=== PATIENT | male | born 1960 | race African-American/Black ===

== ENCOUNTER 2018-06-21 14:58 | Inpatient (IN) ==
[2018-06-21] MEDS ORDERED: SODIUM CHLORIDE 0.9% 1,000 ML IV STA (15:35)
[2018-06-21] MEDS ORDERED: DEXTROSE 50% 25 GM/50 ML SYRINGE IV ONE (16:01)
[2018-06-21] MEDS ORDERED: DEXTROSE 50% 25 GM/50 ML VIAL IV STA (16:07)
[2018-06-21 16:14] LABS: Basophils % 0.3 % (0.0-0.8); Eosinophils # 0.1 10*3/uL (0.0-0.87); Eosinophils % 2.3 % (0.00-10.9); Hematocrit 45.3 VOL% (42.0-52.0); Hemoglobin 15.2 GM/DL (14.0-18.0); Immature Granulocytes % 0.3 %; Immature Granulocytes Absolute 0.01 #; Lymphocytes % 24.2 % (21.2-54.2); Mean Corpuscular HGB Conc 33.6 GM/DL (32-36); Mean Corpuscular Hemoglobin 29 PG (27-34); Mean Corpuscular Volume 86.6 FL (87-102); Mean Platelet Volume 11.6 FL (9.6-12.0); Monocytes # 0.3 10*3/uL (0.11-0.8); Monocytes % 6.3 % (1.7-12.7); Neutrophils # 2.6 10*3/uL (1.4-7.4); Neutrophils % 66.6 % (38.7-73.9); Platelet Count 146 T/CUMM (130-400); Red Blood Count 5.23 MC/CUMM (3.8-5.5); Red Cell Distribution Width 14.7 % (9.3-17.3)
[2018-06-21 16:17] LABS: Pt O2 Delivery Device Room Air
[2018-06-21 16:18] LABS: ABG Base Excess 4.4 MMOL/L (-2.5-2.5); ABG HCO3 28.3 MMOL/L (20-26); ABG Oxygen Saturation 96.6 % (95-100); ABG PCO2 58.7 MM HG (35-48); ABG PH 7.344 (7.35-7.45); ABG PO2 93.8 MM HG (80-95); ABG TCO2 28.2 MMOL/L (23-27)
[2018-06-21 16:25] LABS: Apearance,Urine Slightly Hazy (Clear); Bacteria,Urine Many /HPF (Few); Barbiturates Screen,Urine Negative (Negative); Benzodiazepines Screen,Urine Negative (Negative); Bilirubin,Urine Negative (Negative); Blood, Urine Negative (Negative); Cannabinoid Screen,Urine Negative (Negative); Glucose,Urine (UA) Negative (Negative); Ketones,Urine Negative (Negative); Mucus,Urine Few /LPF (Occasional); Nitrite,Urine Negative (Negative); Opiate Screen,Urine Negative (Negative); Phencyclidine Screen,Urine Negative (Negative); Protein,Urine Negative; RBC,Urine 9 /HPF (0-4); Urine Color Yellow (Yellow); Urine Specific Gravity 1.014 (1.001-1.035); WBC,Urine 57 /HPF (0-6)
[2018-06-21] MEDS ORDERED: MEROPENEM 1,000 MG in SODIUM CHLORIDE 0.9% 100 ML IV STA (16:32)
[2018-06-21 16:43] LABS: Ammonia 16 UMOL/L (11-32)
[2018-06-21 16:46] LABS: Lactic Acid 1.1 MMOL/L (0.4-2.0)
[2018-06-21 16:54] LABS: Alanine Aminotransferase 42 U/L (16-61); Albumin 3.1 G/DL (3.4-5.0); Alkaline Phosphatase 108 U/L (45-117); Aspartate Amino Transferase 38 U/L (0-37); Blood Urea Nitrogen 25 MG/DL (7-18); CKMB % 6.8 %; Calcium 9.8 MG/DL (8.5-10.1); Glucose 73 MG/DL (74-106); Osmolality,Calculated 285.1 MOS/KG (273-304); Potassium 3.8 MMOL/L (3.5-5.1); Sodium 142 MMOL/L (136-145); Total Protein 7.9 G/DL (6.4-8.3); Troponin I < 0.015 NG/ML (0.00-0.045)
[2018-06-21] MEDS ORDERED: LEVOFLOXACIN INJ 750 MG in PREMIX 1 EACH IV STA (17:31)
[2018-06-21] MEDS ORDERED: VECURONIUM 10 MG VIAL IV ONE (17:36)
[2018-06-21] MEDS ORDERED: ETOMIDATE 20 MG/10 ML VIAL IV ONE (17:36)
[2018-06-21] MEDS ORDERED: NOREPINEPHRINE 4 MG/4 ML VIAL IV ONE (17:38)
[2018-06-21] MEDS ORDERED: ALBUTEROL 2.5 MG/3 ML NEB RESP TX PRN (18:17)
[2018-06-21] MEDS ORDERED: ONDANSETRON 4 MG/2 ML VIAL IV PRN (18:17)
[2018-06-21 18:34] LABS: PT Patient Result 10.1 SECS
[2018-06-21] MEDS ORDERED: GLUCAGON 1 MG VIAL IM PRN (19:23)
[2018-06-21 19:45] LABS: ABG Base Excess 5.5 MMOL/L (-2.5-2.5); ABG HCO3 26.5 MMOL/L (20-26); ABG Oxygen Saturation 99.3 % (95-100); ABG PCO2 28.7 MM HG (35-48); ABG PH 7.584 (7.35-7.45); ABG PO2 432.3 MM HG (80-95); ABG TCO2 27.4 MMOL/L (23-27)
[2018-06-21] MEDS: PANTOPRAZOLE 40 MG VIAL IV SCH (20:18)
[2018-06-21] MEDS ORDERED: SODIUM CHLORIDE 0.9% 1,000 ML IV ONE (22:00)
[2018-06-21] MEDS: NOREPINEPHRINE 8 MG in SODIUM CHLORIDE 0.9% 242 ML IV PRN (23:00)
[2018-06-21] MEDS: SODIUM CHLORIDE 0.9% 1,000 ML IV SCH (23:10)
[2018-06-22] MEDS: DEXTROSE 50% 25 GM/50 ML VIAL IV PRN (00:18)
[2018-06-22] MEDS: INSULIN REGULAR 100 UNIT/ML SUBCUT SCH ×4 (00:20→17:13)
[2018-06-22 03:39] LABS: ABG Base Excess 2.4 MMOL/L (-2.5-2.5); ABG HCO3 26.2 MMOL/L (20-26); ABG Oxygen Saturation 82.8 % (95-100); ABG PCO2 41.2 MM HG (35-48); ABG PH 7.425 (7.35-7.45); ABG PO2 48.1 MM HG (80-95); ABG TCO2 23.5 MMOL/L (23-27)
[2018-06-22 05:31] LABS: Basophils % 0.2 % (0.0-0.8); Eosinophils # 0.1 10*3/uL (0.0-0.87); Eosinophils % 1.1 % (0.00-10.9); Hematocrit 39.8 VOL% (42.0-52.0); Hemoglobin 13.6 GM/DL (14.0-18.0); Immature Granulocytes % 0.4 %; Immature Granulocytes Absolute 0.02 #; Lymphocytes # 0.8 10*3/uL (1.4-4.0); Lymphocytes % 14.9 % (21.2-54.2); Mean Corpuscular HGB Conc 34.2 GM/DL (32-36); Mean Corpuscular Hemoglobin 30 PG (27-34); Mean Corpuscular Volume 86.9 FL (87-102); Mean Platelet Volume 12.2 FL (9.6-12.0); Monocytes # 0.6 10*3/uL (0.11-0.8); Monocytes % 10.7 % (1.7-12.7); Neutrophils # 3.9 10*3/uL (1.4-7.4); Neutrophils % 72.7 % (38.7-73.9); Platelet Count 139 T/CUMM (130-400); Red Blood Count 4.58 MC/CUMM (3.8-5.5); Red Cell Distribution Width 14.9 % (9.3-17.3); White Blood Count 5.4 T/CUMM (4-12)
[2018-06-22 05:42] LABS: Calcium 8.5 MG/DL (8.5-10.1); Osmolality,Calculated 288.8 MOS/KG (273-304); Potassium 4.1 MMOL/L (3.5-5.1)
[2018-06-22] MEDS: SODIUM CHLORIDE 0.9% 1,000 ML IV SCH ×3 (05:51→19:35)
[2018-06-22] MEDS: MEROPENEM 1,000 MG in SYRINGE 1 EACH IV SCH ×2 (06:42→17:46)
[2018-06-22] MEDS: PROPOFOL 1,000 MG/100 ML BOTTLE IV SCH ×3 (07:16→20:05)
[2018-06-22] MEDS: NOREPINEPHRINE 8 MG in SODIUM CHLORIDE 0.9% 242 ML IV PRN (08:30)
[2018-06-22 08:39] LABS: ABG HCO3 26.2 MMOL/L (20-26); ABG Oxygen Saturation 99.7 % (95-100); ABG PH 7.443 (7.35-7.45); ABG TCO2 22.5 MMOL/L (23-27)
[2018-06-22] MEDS: risperiDONE 1 MG TABLET PO SCH (14:05)
[2018-06-22] MEDS: OXcarbazepine 300 MG TABLET PO SCH ×2 (14:05→21:22)
[2018-06-22] MEDS: LEVOFLOXACIN INJ 750 MG in PREMIX 1 EACH IV SCH (17:46)
[2018-06-22] MEDS: PANTOPRAZOLE 40 MG VIAL IV SCH (17:46)
[2018-06-22] MEDS: BENZTROPINE 1 MG TABLET PO SCH (21:22)
[2018-06-23] MEDS: SODIUM CHLORIDE 0.9% 1,000 ML IV SCH ×3 (01:44→09:09)
[2018-06-23] MEDS: INSULIN REGULAR 100 UNIT/ML SUBCUT SCH ×4 (01:46→18:14)
[2018-06-23 04:26] LABS: ABG Base Excess -1.1 MMOL/L (-2.5-2.5); ABG HCO3 22.5 MMOL/L (20-26); ABG Oxygen Saturation 98.8 % (95-100); ABG PCO2 34.1 MM HG (35-48); ABG PH 7.438 (7.35-7.45); ABG PO2 203.7 MM HG (80-95); ABG TCO2 23.6 MMOL/L (23-27); Pt O2 Delivery Device Ventilator
[2018-06-23] MEDS: MEROPENEM 1,000 MG in SYRINGE 1 EACH IV SCH ×2 (05:58→18:11)
[2018-06-23 06:36] LABS: Osmolality,Calculated 288.8 MOS/KG (273-304); Potassium 3.3 MMOL/L (3.5-5.1)
[2018-06-23 06:42] LABS: Prealbumin 12.2 MG/DL (20-40)
[2018-06-23 07:32] LABS: Basophils % 0.2 % (0.0-0.8); Eosinophils # 0.1 10*3/uL (0.0-0.87); Eosinophils % 2.3 % (0.00-10.9); Hematocrit 31.5 VOL% (42.0-52.0); Immature Granulocytes % 0.5 %; Immature Granulocytes Absolute 0.02 #; Lymphocytes # 1.3 10*3/uL (1.4-4.0); Lymphocytes % 29.3 % (21.2-54.2); Mean Corpuscular Hemoglobin 30 PG (27-34); Mean Corpuscular Volume 87.3 FL (87-102); Mean Platelet Volume 11.9 FL (9.6-12.0); Monocytes # 0.7 10*3/uL (0.11-0.8); Monocytes % 15.3 % (1.7-12.7); Neutrophils # 2.2 10*3/uL (1.4-7.4); Neutrophils % 52.4 % (38.7-73.9); Platelet Count 78 T/CUMM (130-400); Red Blood Count 3.61 MC/CUMM (3.8-5.5); Red Cell Distribution Width 15.4 % (9.3-17.3); White Blood Count 4.3 T/CUMM (4-12)
[2018-06-23 07:37] LABS: Hemoglobin 10.7 GM/DL (14.0-18.0)
[2018-06-23 07:57] LABS: Anisocytosis 1+; Band Neutrophils 1 % (0-10); Eosinophils 2 % (0-10); Lymphocytes 39 % (20-55); Macrocytosis Slight; Platelet Estimate Decreased; Segmented Neutrophils 45 % (50-85); Total Cells Counted 100
[2018-06-23] MEDS ORDERED: MAGNESIUM SULF RIDER 4 GM in PREMIX 1 EACH IV PRN (08:49)
[2018-06-23] MEDS ORDERED: POTASSIUM CHLORIDE 20 MEQ TABLET PO PRN (08:49)
[2018-06-23] MEDS: MAGNESIUM SULF RIDER 2 GM in PREMIX 1 EACH IV PRN (09:25)
[2018-06-23] MEDS: BENZTROPINE 1 MG TABLET PO SCH ×2 (09:26→20:55)
[2018-06-23] MEDS: POTASSIUM CHLORIDE 20 MEQ/15 ML UDCUP PO PRN ×3 (09:29→15:26)
[2018-06-23] MEDS: DEXTROSE 50% 25 GM/50 ML VIAL IV PRN (11:44)
[2018-06-23] MEDS: DEXTROSE 5% NACL 0.45% 1,000 ML IV SCH ×2 (14:13→21:49)
[2018-06-23 14:35] LABS: Calcium 7.9 MG/DL (8.5-10.1); Osmolality,Calculated 285.8 MOS/KG (273-304); Potassium 3.8 MMOL/L (3.5-5.1)
[2018-06-23] MEDS: OXcarbazepine 300 MG TABLET PO SCH ×2 (15:25→20:55)
[2018-06-23] MEDS: risperiDONE 1 MG TABLET PO SCH (15:25)
[2018-06-23] MEDS: LEVOFLOXACIN INJ 750 MG in PREMIX 1 EACH IV SCH (18:05)
[2018-06-23] MEDS: PANTOPRAZOLE 40 MG VIAL IV SCH (18:16)
[2018-06-24] MEDS: INSULIN REGULAR 100 UNIT/ML SUBCUT SCH ×4 (00:29→18:24)
[2018-06-24 04:19] LABS: ABG Base Excess -2.3 MMOL/L (-2.5-2.5); ABG HCO3 22.5 MMOL/L (20-26); ABG Oxygen Saturation 99.3 % (95-100); ABG PCO2 36.3 MM HG (35-48); ABG PH 7.392 (7.35-7.45); ABG TCO2 19.6 MMOL/L (23-27); Allen Test Positive; Pt O2 Delivery Device Ventilator
[2018-06-24] MEDS: MEROPENEM 1,000 MG in SYRINGE 1 EACH IV SCH ×2 (04:22→17:09)
[2018-06-24] MEDS: DEXTROSE 5% NACL 0.45% 1,000 ML IV SCH ×4 (04:30→22:20)
[2018-06-24] MEDS: PROPOFOL 1,000 MG/100 ML BOTTLE IV SCH ×3 (04:31→19:30)
[2018-06-24 04:32] LABS: Basophils % 0.2 % (0.0-0.8); Eosinophils # 0.1 10*3/uL (0.0-0.87); Eosinophils % 1.5 % (0.00-10.9); Hematocrit 31.8 VOL% (42.0-52.0); Hemoglobin 11.2 GM/DL (14.0-18.0); Immature Granulocytes % 0.4 %; Immature Granulocytes Absolute 0.02 #; Lymphocytes # 0.9 10*3/uL (1.4-4.0); Mean Corpuscular HGB Conc 35.2 GM/DL (32-36); Mean Corpuscular Hemoglobin 30 PG (27-34); Mean Corpuscular Volume 85.5 FL (87-102); Mean Platelet Volume 12.1 FL (9.6-12.0); Monocytes # 0.6 10*3/uL (0.11-0.8); Monocytes % 11.3 % (1.7-12.7); Neutrophils # 3.8 10*3/uL (1.4-7.4); Neutrophils % 70.6 % (38.7-73.9); Platelet Count 78 T/CUMM (130-400); Red Blood Count 3.72 MC/CUMM (3.8-5.5); Red Cell Distribution Width 15.3 % (9.3-17.3); White Blood Count 5.3 T/CUMM (4-12)
[2018-06-24 04:56] LABS: Calcium 8.2 MG/DL (8.5-10.1); Osmolality,Calculated 277.5 MOS/KG (273-304); Potassium 4.2 MMOL/L (3.5-5.1)
[2018-06-24] MEDS: BENZTROPINE 1 MG TABLET PO SCH ×2 (09:53→20:22)
[2018-06-24] MEDS: OXcarbazepine 300 MG TABLET PO SCH ×2 (15:06→20:23)
[2018-06-24] MEDS: risperiDONE 1 MG TABLET PO SCH (15:06)
[2018-06-24] MEDS: LEVOFLOXACIN INJ 750 MG in PREMIX 1 EACH IV SCH (17:08)
[2018-06-24] MEDS: PANTOPRAZOLE 40 MG VIAL IV SCH (19:10)
[2018-06-25] MEDS: INSULIN REGULAR 100 UNIT/ML SUBCUT SCH ×5 (00:23→23:56)
[2018-06-25] MEDS: DEXTROSE 5% NACL 0.45% 1,000 ML IV SCH ×6 (02:11→22:59)
[2018-06-25 05:35] LABS: Basophils % 0.2 % (0.0-0.8); Eosinophils # 0.1 10*3/uL (0.0-0.87); Eosinophils % 2.3 % (0.00-10.9); Hematocrit 29.8 VOL% (42.0-52.0); Hemoglobin 10.3 GM/DL (14.0-18.0); Immature Granulocytes % 0.5 %; Immature Granulocytes Absolute 0.03 #; Lymphocytes # 0.8 10*3/uL (1.4-4.0); Mean Corpuscular HGB Conc 34.6 GM/DL (32-36); Mean Corpuscular Hemoglobin 30 PG (27-34); Mean Corpuscular Volume 86.6 FL (87-102); Mean Platelet Volume 12.5 FL (9.6-12.0); Monocytes # 0.5 10*3/uL (0.11-0.8); Monocytes % 9.1 % (1.7-12.7); NRBC # 0.02 10*3/uL; Neutrophils # 4.2 10*3/uL (1.4-7.4); Neutrophils % 73.9 % (38.7-73.9); Platelet Count 68 T/CUMM (130-400); Red Blood Count 3.44 MC/CUMM (3.8-5.5); Red Cell Distribution Width 15.3 % (9.3-17.3); White Blood Count 5.7 T/CUMM (4-12)
[2018-06-25] MEDS: MEROPENEM 1,000 MG in SYRINGE 1 EACH IV SCH ×2 (05:37→18:26)
[2018-06-25 05:50] LABS: Calcium 7.9 MG/DL (8.5-10.1); Osmolality,Calculated 274.1 MOS/KG (273-304); Potassium 3.9 MMOL/L (3.5-5.1)
[2018-06-25 06:16] LABS: Band Neutrophils 1 % (0-10); Eosinophils 2 % (0-10); Hypochromasia 1+; Lymphocytes 17 % (20-55); Platelet Estimate Decreased; Segmented Neutrophils 75 % (50-85); Total Cells Counted 100
[2018-06-25] MEDS: BENZTROPINE 1 MG TABLET PO SCH ×2 (09:31→21:54)
[2018-06-25] MEDS: risperiDONE 1 MG TABLET PO SCH (14:31)
[2018-06-25] MEDS: OXcarbazepine 300 MG TABLET PO SCH ×2 (14:32→21:54)
[2018-06-25] MEDS: PANTOPRAZOLE 40 MG VIAL IV SCH (18:23)
[2018-06-25] MEDS: PROPOFOL 1,000 MG/100 ML BOTTLE IV SCH (19:51)
[2018-06-26] MEDS: DEXTROSE 5% NACL 0.45% 1,000 ML IV SCH ×5 (01:17→21:11)
[2018-06-26] MEDS: INSULIN REGULAR 100 UNIT/ML SUBCUT SCH ×4 (06:12→23:41)
[2018-06-26] MEDS: MEROPENEM 1,000 MG in SYRINGE 1 EACH IV SCH (06:16)
[2018-06-26 08:16] LABS: Calcium 7.5 MG/DL (8.5-10.1); Osmolality,Calculated 270.1 MOS/KG (273-304); Potassium 3.9 MMOL/L (3.5-5.1)
[2018-06-26] MEDS: BENZTROPINE 1 MG TABLET PO SCH ×2 (09:26→20:40)
[2018-06-26] MEDS: LACTULOSE 20 GM/30 ML UDCUP PO SCH ×3 (09:26→20:40)
[2018-06-26] MEDS: risperiDONE 1 MG TABLET PO SCH (13:34)
[2018-06-26] MEDS: OXcarbazepine 300 MG TABLET PO SCH ×2 (13:34→20:40)
[2018-06-26] MEDS: MEROPENEM 1,000 MG in SODIUM CHLORIDE 0.9% 100 ML IV SCH ×2 (13:49→22:31)
[2018-06-26] MEDS: DEXTROSE 50% 25 GM/50 ML VIAL IV PRN ×2 (17:27→19:10)
[2018-06-26] MEDS: PANTOPRAZOLE 40 MG VIAL IV SCH (19:46)
[2018-06-26] MEDS ORDERED: SODIUM CHLORIDE 0.9% 1,000 ML IV ONE ×2 (19:52→21:14)
[2018-06-26 20:47] LABS: ABG HCO3 23.6 MMOL/L (20-26); ABG Oxygen Saturation 98.7 % (95-100); ABG PCO2 44.9 MM HG (35-48); ABG PH 7.351 (7.35-7.45); ABG TCO2 22.2 MMOL/L (23-27)
[2018-06-26] MEDS ORDERED: NOREPINEPHRINE 8 MG in SODIUM CHLORIDE 0.9% 242 ML IV PRN (21:54)
[2018-06-26 21:58] LABS: Ammonia 28 UMOL/L (11-32)
[2018-06-26 22:01] LABS: Alanine Aminotransferase 33 U/L (16-61); Albumin 1.8 G/DL (3.4-5.0); Alkaline Phosphatase 77 U/L (45-117); Aspartate Amino Transferase 47 U/L (0-37); Bilirubin,Total < 0.39 MG/DL (0.2-1.0); Blood Urea Nitrogen 10 MG/DL (7-18); Glucose 69 MG/DL (74-106); Potassium 3.9 MMOL/L (3.5-5.1); Sodium 136 MMOL/L (136-145)
[2018-06-26] MEDS ORDERED: NOREPINEPHRINE 4 MG/4 ML VIAL IV ONE (22:03)
[2018-06-27] MEDS: GENTAMICIN INJ 320 MG in SODIUM CHLORIDE 0.9% 100 ML IV SCH (01:14)
[2018-06-27] MEDS: DEXTROSE 5% NACL 0.45% 1,000 ML IV SCH ×5 (02:23→23:41)
[2018-06-27] MEDS: LACTULOSE 20 GM/30 ML UDCUP PO SCH ×4 (03:10→20:52)
[2018-06-27 05:23] LABS: Basophils % 0.3 % (0.0-0.8); Eosinophils # 0.2 10*3/uL (0.0-0.87); Eosinophils % 2.1 % (0.00-10.9); Hematocrit 30.4 VOL% (42.0-52.0); Hemoglobin 10.7 GM/DL (14.0-18.0); Immature Granulocytes % 0.5 %; Immature Granulocytes Absolute 0.04 #; Lymphocytes # 0.6 10*3/uL (1.4-4.0); Lymphocytes % 7.5 % (21.2-54.2); Mean Corpuscular HGB Conc 35.2 GM/DL (32-36); Mean Corpuscular Hemoglobin 30 PG (27-34); Mean Corpuscular Volume 85.9 FL (87-102); Mean Platelet Volume 11.9 FL (9.6-12.0); Monocytes # 0.7 10*3/uL (0.11-0.8); Monocytes % 8.6 % (1.7-12.7); Neutrophils # 6.1 10*3/uL (1.4-7.4); Red Blood Count 3.54 MC/CUMM (3.8-5.5); Red Cell Distribution Width 14.9 % (9.3-17.3)
[2018-06-27 05:34] LABS: White Blood Count 7.6 T/CUMM (4-12)
[2018-06-27 05:35] LABS: Platelet Count 90 T/CUMM (130-400)
[2018-06-27 05:37] LABS: Calcium 7.6 MG/DL (8.5-10.1); Osmolality,Calculated 271.8 MOS/KG (273-304); Potassium 4.2 MMOL/L (3.5-5.1)
[2018-06-27 05:39] LABS: Hypochromasia 1+
[2018-06-27 05:40] LABS: Giant Platelets Few; Microcytosis 1+; Platelet Estimate Decreased
[2018-06-27] MEDS: INSULIN REGULAR 100 UNIT/ML SUBCUT SCH ×3 (05:52→17:17)
[2018-06-27] MEDS: MEROPENEM 1,000 MG in SODIUM CHLORIDE 0.9% 100 ML IV SCH ×3 (06:11→21:30)
[2018-06-27] MEDS: BENZTROPINE 1 MG TABLET PO SCH ×2 (09:54→20:48)
[2018-06-27] MEDS: ALBUTEROL/IPRATROPIUM 3 ML NEB RESP TX SCH ×2 (12:51→19:42)
[2018-06-27] MEDS: risperiDONE 1 MG TABLET PO SCH (14:55)
[2018-06-27] MEDS: OXcarbazepine 300 MG TABLET PO SCH ×2 (14:56→20:48)
[2018-06-27] MEDS: BACITRACIN OINT 0.9 GM PACK TOP SCH (14:57)
[2018-06-27] MEDS: PANTOPRAZOLE 40 MG VIAL IV SCH (17:35)
[2018-06-28] MEDS: ALBUTEROL/IPRATROPIUM 3 ML NEB RESP TX SCH ×4 (01:40→20:06)
[2018-06-28] MEDS: INSULIN REGULAR 100 UNIT/ML SUBCUT SCH ×4 (03:19→17:45)
[2018-06-28] MEDS: LACTULOSE 20 GM/30 ML UDCUP PO SCH ×4 (03:24→21:20)
[2018-06-28] MEDS: GENTAMICIN INJ 320 MG in SODIUM CHLORIDE 0.9% 100 ML IV SCH (03:25)
[2018-06-28 04:49] LABS: Osmolality,Calculated 281.3 MOS/KG (273-304); Potassium 3.9 MMOL/L (3.5-5.1); Prealbumin 13.6 MG/DL (20-40)
[2018-06-28] MEDS: MEROPENEM 1,000 MG in SODIUM CHLORIDE 0.9% 100 ML IV SCH ×3 (05:35→21:33)
[2018-06-28] MEDS: DEXTROSE 5% NACL 0.45% 1,000 ML IV SCH ×3 (05:50→21:17)
[2018-06-28] MEDS: MAGNESIUM SULF RIDER 2 GM in PREMIX 1 EACH IV PRN (06:55)
[2018-06-28] MEDS: BACITRACIN OINT 0.9 GM PACK TOP SCH (09:01)
[2018-06-28] MEDS: BENZTROPINE 1 MG TABLET PO SCH ×2 (09:01→21:19)
[2018-06-28] MEDS ORDERED: SODIUM PHOSPHATE ENEMA 133 ML BOTTLE RECTAL PRN (13:12)
[2018-06-28] MEDS: OXcarbazepine 300 MG TABLET PO SCH ×2 (13:37→21:19)
[2018-06-28] MEDS: risperiDONE 1 MG TABLET PO SCH ×2 (13:37→21:00)
[2018-06-28] MEDS: PANTOPRAZOLE 40 MG VIAL IV SCH (17:58)
[2018-06-28] MEDS: SENNA 8.6 MG TABLET PO SCH (21:20)
[2018-06-29] MEDS: DEXTROSE 50% 25 GM/50 ML VIAL IV PRN (00:16)
[2018-06-29] MEDS: INSULIN REGULAR 100 UNIT/ML SUBCUT SCH ×3 (00:16→12:03)
[2018-06-29] MEDS: ALBUTEROL/IPRATROPIUM 3 ML NEB RESP TX SCH ×5 (00:26→23:55)
[2018-06-29] MEDS: GENTAMICIN INJ 320 MG in SODIUM CHLORIDE 0.9% 100 ML IV SCH (01:23)
[2018-06-29] MEDS: LACTULOSE 20 GM/30 ML UDCUP PO SCH (02:30)
[2018-06-29 04:29] LABS: Calcium 7.8 MG/DL (8.5-10.1); Osmolality,Calculated 274.5 MOS/KG (273-304); Potassium 4.3 MMOL/L (3.5-5.1)
[2018-06-29] MEDS: DEXTROSE 5% NACL 0.45% 1,000 ML IV SCH ×4 (05:01→22:19)
[2018-06-29] MEDS: MEROPENEM 1,000 MG in SODIUM CHLORIDE 0.9% 100 ML IV SCH ×3 (06:15→21:01)
[2018-06-29] MEDS: MAGNESIUM SULF RIDER 2 GM in PREMIX 1 EACH IV PRN (07:52)
[2018-06-29] MEDS: SENNA 8.6 MG TABLET PO SCH ×2 (07:59→20:49)
[2018-06-29] MEDS: BENZTROPINE 1 MG TABLET PO SCH ×2 (07:59→20:48)
[2018-06-29] MEDS: BACITRACIN OINT 0.9 GM PACK TOP SCH (08:02)
[2018-06-29] MEDS: OXcarbazepine 300 MG TABLET PO SCH ×2 (13:35→20:48)
[2018-06-29] MEDS: risperiDONE 1 MG TABLET PO SCH ×2 (13:45→18:20)
[2018-06-29] MEDS: PANTOPRAZOLE 40 MG VIAL IV SCH (18:20)
[2018-06-30] MEDS: MEROPENEM 1,000 MG in SODIUM CHLORIDE 0.9% 100 ML IV SCH ×3 (06:45→21:10)
[2018-06-30] MEDS: ALBUTEROL/IPRATROPIUM 3 ML NEB RESP TX SCH ×3 (07:42→19:28)
[2018-06-30] MEDS: BENZTROPINE 1 MG TABLET PO SCH ×2 (08:24→21:10)
[2018-06-30] MEDS: SENNA 8.6 MG TABLET PO SCH ×2 (08:24→21:09)
[2018-06-30] MEDS: BACITRACIN OINT 0.9 GM PACK TOP SCH (08:25)
[2018-06-30] MEDS ORDERED: HALOPERIDOL 5 MG/ML AMP IV PRN (11:24)
[2018-06-30] MEDS: DEXTROSE 5% NACL 0.45% 1,000 ML IV SCH (13:38)
[2018-06-30] MEDS ORDERED: ENOXAPARIN 40 MG/0.4 ML SYRINGE SUBCUT SCH (14:00)
[2018-06-30] MEDS: FONDAPARINUX 2.5 MG/0.5 ML SYRINGE SUBCUT SCH (15:06)
[2018-06-30] MEDS: CARVEDILOL 6.25 MG TABLET PO SCH ×2 (15:08→21:09)
[2018-06-30] MEDS: OXcarbazepine 300 MG TABLET PO SCH ×2 (15:09→21:09)
[2018-06-30] MEDS: risperiDONE 1 MG TABLET PO SCH ×2 (15:10→17:05)
[2018-06-30] MEDS: FAMOTIDINE 20 MG TABLET PO SCH (21:10)
[2018-07-01] MEDS: ALBUTEROL/IPRATROPIUM 3 ML NEB RESP TX SCH ×4 (01:00→19:15)
[2018-07-01] MEDS: MEROPENEM 1,000 MG in SODIUM CHLORIDE 0.9% 100 ML IV SCH ×3 (05:48→22:17)
[2018-07-01] MEDS: BENZTROPINE 1 MG TABLET PO SCH ×2 (08:41→22:11)
[2018-07-01] MEDS: CARVEDILOL 6.25 MG TABLET PO SCH ×2 (08:41→22:17)
[2018-07-01] MEDS: BACITRACIN OINT 0.9 GM PACK TOP SCH (08:41)
[2018-07-01] MEDS: SENNA 8.6 MG TABLET PO SCH ×2 (08:41→22:11)
[2018-07-01] MEDS: FAMOTIDINE 20 MG TABLET PO SCH ×2 (08:41→22:17)
[2018-07-01] MEDS ORDERED: PANTOPRAZOLE 40 MG TABLET PO SCH (09:00)
[2018-07-01] MEDS ORDERED: MAGNESIUM HYDROXIDE SUSP 30 ML UDCUP PO ONE (10:45)
[2018-07-01] MEDS: OXcarbazepine 300 MG TABLET PO SCH ×2 (14:57→22:16)
[2018-07-01] MEDS: POLYETHYLENE GLYCOL POWDER 17 GM PACK PO SCH (14:57)
[2018-07-01] MEDS: risperiDONE 1 MG TABLET PO SCH ×2 (14:57→18:05)
[2018-07-01] MEDS: FONDAPARINUX 2.5 MG/0.5 ML SYRINGE SUBCUT SCH (14:57)
[2018-07-01] MEDS ORDERED: BISACODYL 10 MG SUPP RECTAL PRN (16:30)
[2018-07-01] MEDS: DEXTROSE 50% 25 GM/50 ML VIAL IV PRN ×2 (17:06→18:00)
[2018-07-02] MEDS: ALBUTEROL/IPRATROPIUM 3 ML NEB RESP TX SCH ×4 (00:29→18:30)
[2018-07-02 05:52] LABS: Basophils % 0.5 % (0.0-0.8); Eosinophils # 0.3 10*3/uL (0.0-0.87); Eosinophils % 5.5 % (0.00-10.9); Hematocrit 28.1 VOL% (42.0-52.0); Hemoglobin 10.1 GM/DL (14.0-18.0); Immature Granulocytes % 0.7 %; Immature Granulocytes Absolute 0.04 #; Lymphocytes # 1.5 10*3/uL (1.4-4.0); Lymphocytes % 24.7 % (21.2-54.2); Mean Corpuscular HGB Conc 35.9 GM/DL (32-36); Mean Corpuscular Hemoglobin 30 PG (27-34); Mean Corpuscular Volume 83.6 FL (87-102); Monocytes # 0.7 10*3/uL (0.11-0.8); Monocytes % 12.3 % (1.7-12.7); Neutrophils # 3.4 10*3/uL (1.4-7.4); Neutrophils % 56.3 % (38.7-73.9); Platelet Count 216 T/CUMM (130-400); Red Blood Count 3.36 MC/CUMM (3.8-5.5); Red Cell Distribution Width 14.2 % (9.3-17.3)
[2018-07-02] MEDS: MEROPENEM 1,000 MG in SODIUM CHLORIDE 0.9% 100 ML IV SCH ×3 (06:06→23:09)
[2018-07-02 06:17] LABS: Calcium 8.4 MG/DL (8.5-10.1); Osmolality,Calculated 267.2 MOS/KG (273-304); Potassium 3.8 MMOL/L (3.5-5.1); Prealbumin 16.4 MG/DL (20-40)
[2018-07-02] MEDS: BENZTROPINE 1 MG TABLET PO SCH ×2 (09:08→23:11)
[2018-07-02] MEDS: SENNA 8.6 MG TABLET PO SCH ×2 (09:08→23:13)
[2018-07-02] MEDS: POLYETHYLENE GLYCOL POWDER 17 GM PACK PO SCH (09:08)
[2018-07-02] MEDS: FAMOTIDINE 20 MG TABLET PO SCH ×2 (09:08→23:14)
[2018-07-02] MEDS: BACITRACIN OINT 0.9 GM PACK TOP SCH (09:08)
[2018-07-02] MEDS: CARVEDILOL 6.25 MG TABLET PO SCH ×2 (09:08→23:14)
[2018-07-02] MEDS: risperiDONE 1 MG TABLET PO SCH ×2 (14:11→18:03)
[2018-07-02] MEDS: OXcarbazepine 300 MG TABLET PO SCH ×2 (14:12→23:14)
[2018-07-02] MEDS: FONDAPARINUX 2.5 MG/0.5 ML SYRINGE SUBCUT SCH (14:14)
[2018-07-03] MEDS: MEROPENEM 1,000 MG in SODIUM CHLORIDE 0.9% 100 ML IV SCH (07:16)
[2018-07-03] MEDS: ALBUTEROL/IPRATROPIUM 3 ML NEB RESP TX SCH ×2 (07:40)
[2018-07-03] MEDS: FAMOTIDINE 20 MG TABLET PO SCH (09:57)
[2018-07-03] MEDS: CARVEDILOL 6.25 MG TABLET PO SCH (09:57)
[2018-07-03] MEDS: POLYETHYLENE GLYCOL POWDER 17 GM PACK PO SCH (09:57)
[2018-07-03] MEDS: BENZTROPINE 1 MG TABLET PO SCH (09:57)
[2018-07-03] MEDS: SENNA 8.6 MG TABLET PO SCH (09:57)
[2018-07-03] MEDS: BACITRACIN OINT 0.9 GM PACK TOP SCH (09:59)
[2018-07-03 10:40] VITALS: BP 139/81
== END 2018-07-03 11:51 | DRG 870 ==
LOC: EDBD → EDUNIT# → N.ED 14:58 → N.EDINP 18:00 → SUATTDRO 18:00 → N.CC 18:33 → N.5E 06-29 22:34
PROVIDERS: ADMIT Internal Medicine; ATTEND Internal Medicine

== ENCOUNTER 2018-08-12 12:59 | Inpatient (IN) ==
[2018-08-12] MEDS ORDERED: SODIUM CHLORIDE 0.9% 1,000 ML IV STA (13:27)
[2018-08-12 14:31] LABS: Basophils % 0.2 % (0.0-0.8); Eosinophils # 0.1 10*3/uL (0.0-0.87); Eosinophils % 2.1 % (0.00-10.9); Hematocrit 33.4 VOL% (42.0-52.0); Hemoglobin 11.1 GM/DL (14.0-18.0); Immature Granulocytes % 0.6 %; Immature Granulocytes Absolute 0.03 #; Lymphocytes # 0.9 10*3/uL (1.4-4.0); Lymphocytes % 17.8 % (21.2-54.2); Mean Corpuscular HGB Conc 33.2 GM/DL (32-36); Mean Corpuscular Hemoglobin 30 PG (27-34); Mean Corpuscular Volume 89.5 FL (87-102); Mean Platelet Volume 11.3 FL (9.6-12.0); Monocytes # 0.4 10*3/uL (0.11-0.8); Monocytes % 6.7 % (1.7-12.7); Neutrophils # 3.8 10*3/uL (1.4-7.4); Neutrophils % 72.6 % (38.7-73.9); Platelet Count 195 T/CUMM (130-400); Red Blood Count 3.73 MC/CUMM (3.8-5.5); White Blood Count 5.2 T/CUMM (4-12)
[2018-08-12 14:59] LABS: Alanine Aminotransferase 22 U/L (16-61); Albumin 2.9 G/DL (3.4-5.0); Alkaline Phosphatase 84 U/L (45-117); Aspartate Amino Transferase 39 U/L (0-37); Bilirubin,Total < 0.39 MG/DL (0.2-1.0); Blood Urea Nitrogen 29 MG/DL (7-18); Calcium 9.6 MG/DL (8.5-10.1); Glucose 118 MG/DL (74-106); Potassium 3.9 MMOL/L (3.5-5.1); Sodium 143 MMOL/L (136-145); Total Protein 7.5 G/DL (6.4-8.3)
[2018-08-12 15:08] LABS: Apearance,Urine CLEAR (Clear); Bacteria,Urine Occasional /HPF (Few); Bilirubin,Urine Negative (Negative); Blood, Urine Negative (Negative); Glucose,Urine (UA) Negative (Negative); Ketones,Urine Negative (Negative); Mucus,Urine Occasional /LPF (Occasional); Nitrite,Urine Positive (Negative); Protein,Urine Negative; RBC,Urine 1 /HPF (0-4); Urine Color Yellow (Yellow); Urine Specific Gravity 1.018 (1.001-1.035); WBC,Urine 8 /HPF (0-6)
[2018-08-12] MEDS ORDERED: ONDANSETRON 4 MG/2 ML VIAL IV PRN (15:57)
[2018-08-12] MEDS ORDERED: GLUCAGON 1 MG VIAL IM PRN (15:57)
[2018-08-12] MEDS ORDERED: ALBUTEROL 2.5 MG/3 ML NEB RESP TX PRN (15:57)
[2018-08-12] MEDS: SODIUM CHLORIDE 0.9% 1,000 ML IV SCH (17:51)
[2018-08-12] MEDS: MEROPENEM 1,000 MG in SODIUM CHLORIDE 0.9% 100 ML IV SCH (17:51)
[2018-08-12] MEDS: PANTOPRAZOLE 40 MG VIAL IV SCH (17:52)
[2018-08-12] MEDS: ENOXAPARIN 40 MG/0.4 ML SYRINGE SUBCUT SCH (17:52)
[2018-08-12] MEDS: INSULIN REGULAR 100 UNIT/ML SUBCUT SCH ×2 (17:56→21:38)
[2018-08-12] MEDS: DEXTROSE 50% 25 GM/50 ML VIAL IV PRN (21:39)
[2018-08-12] MEDS: MAGNESIUM SULF RIDER 2 GM in PREMIX 1 EACH IV PRN (22:01)
[2018-08-13] MEDS: MEROPENEM 1,000 MG in SODIUM CHLORIDE 0.9% 100 ML IV SCH ×3 (01:21→15:25)
[2018-08-13 03:23] LABS: Basophils % 0.1 % (0.0-0.8); Eosinophils # 0.1 10*3/uL (0.0-0.87); Eosinophils % 1.4 % (0.00-10.9); Hemoglobin 11.1 GM/DL (14.0-18.0); Immature Granulocytes % 0.3 %; Immature Granulocytes Absolute 0.02 #; Lymphocytes # 1.2 10*3/uL (1.4-4.0); Lymphocytes % 16.1 % (21.2-54.2); Mean Corpuscular HGB Conc 33.6 GM/DL (32-36); Mean Corpuscular Hemoglobin 30 PG (27-34); Mean Corpuscular Volume 88.2 FL (87-102); Monocytes # 0.6 10*3/uL (0.11-0.8); Monocytes % 7.7 % (1.7-12.7); Neutrophils # 5.4 10*3/uL (1.4-7.4); Neutrophils % 74.4 % (38.7-73.9); Platelet Count 182 T/CUMM (130-400); Red Blood Count 3.74 MC/CUMM (3.8-5.5); White Blood Count 7.3 T/CUMM (4-12)
[2018-08-13 03:49] LABS: Alanine Aminotransferase 20 U/L (16-61); Albumin 2.8 G/DL (3.4-5.0); Alkaline Phosphatase 81 U/L (45-117); Aspartate Amino Transferase 45 U/L (0-37); Bilirubin,Total < 0.39 MG/DL (0.2-1.0); Blood Urea Nitrogen 23 MG/DL (7-18); Calcium 8.8 MG/DL (8.5-10.1); Glucose 67 MG/DL (74-106); Osmolality,Calculated 287.8 MOS/KG (273-304); Potassium 4.1 MMOL/L (3.5-5.1); Sodium 144 MMOL/L (136-145); Total Protein 7.2 G/DL (6.4-8.3)
[2018-08-13] MEDS: SODIUM CHLORIDE 0.9% 1,000 ML IV SCH ×4 (04:07→21:24)
[2018-08-13] MEDS: DEXTROSE 50% 25 GM/50 ML VIAL IV PRN ×2 (04:08→08:56)
[2018-08-13] MEDS: ZIPRASIDONE 20 MG/1 ML VIAL IM PRN ×2 (05:10→21:46)
[2018-08-13] MEDS: INSULIN REGULAR 100 UNIT/ML SUBCUT SCH ×4 (07:49→17:01)
[2018-08-13] MEDS ORDERED: MAGNESIUM SULF RIDER 2 GM in PREMIX 1 EACH IV ONE (08:00)
[2018-08-13] MEDS: DEXAMETHASONE 4 MG/1 ML VIAL IV SCH ×2 (08:04→21:16)
[2018-08-13] MEDS: ONDANSETRON 4 MG TABLET PO SCH ×3 (08:59→21:15)
[2018-08-13] MEDS: BISACODYL 10 MG SUPP RECTAL SCH (08:59)
[2018-08-13] MEDS ORDERED: INFLUENZA VIRUS VACCINE 0.5 ML SYRINGE IM ONE (09:00)
[2018-08-13] MEDS ORDERED: CARVEDILOL 6.25 MG TABLET PO SCH (09:00)
[2018-08-13] MEDS: BENZTROPINE 1 MG TABLET PO SCH ×2 (09:04→21:16)
[2018-08-13] MEDS: FAMOTIDINE 20 MG TABLET PO SCH ×2 (09:04→21:16)
[2018-08-13] MEDS: SENNA 8.6 MG TABLET PO SCH ×2 (09:04→21:16)
[2018-08-13] MEDS: POLYETHYLENE GLYCOL POWDER 17 GM PACK PO SCH (09:04)
[2018-08-13] MEDS: HYDROCORTISONE 10 MG TABLET PO SCH ×2 (09:04→21:15)
[2018-08-13] MEDS: ZINC OXIDE PASTE 113 GM TUBE TOP SCH (13:37)
[2018-08-13] MEDS: OXcarbazepine 300 MG TABLET PO SCH ×2 (13:50→21:15)
[2018-08-13] MEDS: risperiDONE 1 MG TABLET PO SCH ×2 (13:50→17:52)
[2018-08-13] MEDS: ENOXAPARIN 40 MG/0.4 ML SYRINGE SUBCUT SCH (15:25)
[2018-08-13] MEDS: PANTOPRAZOLE 40 MG VIAL IV SCH (15:25)
[2018-08-13] MEDS ORDERED: risperiDONE 1 MG TABLET PO SCH (18:00)
[2018-08-14] MEDS: MEROPENEM 1,000 MG in SODIUM CHLORIDE 0.9% 100 ML IV SCH ×4 (00:02→23:30)
[2018-08-14] MEDS: INSULIN REGULAR 100 UNIT/ML SUBCUT SCH ×4 (00:03→17:44)
[2018-08-14] MEDS: ZINC OXIDE PASTE 113 GM TUBE TOP SCH ×3 (00:50→21:16)
[2018-08-14 03:24] LABS: Hematocrit 33.3 VOL% (42.0-52.0); Hemoglobin 11.3 GM/DL (14.0-18.0); Immature Granulocytes % 0.3 %; Immature Granulocytes Absolute 0.02 #; Lymphocytes # 0.7 10*3/uL (1.4-4.0); Lymphocytes % 11.9 % (21.2-54.2); Mean Corpuscular HGB Conc 33.9 GM/DL (32-36); Mean Corpuscular Hemoglobin 30 PG (27-34); Mean Corpuscular Volume 88.1 FL (87-102); Mean Platelet Volume 11.3 FL (9.6-12.0); Monocytes # 0.1 10*3/uL (0.11-0.8); Monocytes % 2.3 % (1.7-12.7); Neutrophils # 5.2 10*3/uL (1.4-7.4); Neutrophils % 85.5 % (38.7-73.9); Platelet Count 177 T/CUMM (130-400); Red Blood Count 3.78 MC/CUMM (3.8-5.5); Red Cell Distribution Width 15.5 % (9.3-17.3)
[2018-08-14 03:38] LABS: Osmolality,Calculated 283.1 MOS/KG (273-304); Potassium 4.4 MMOL/L (3.5-5.1)
[2018-08-14] MEDS: ONDANSETRON 4 MG TABLET PO SCH ×4 (03:44→21:14)
[2018-08-14] MEDS: SODIUM CHLORIDE 0.9% 1,000 ML IV SCH ×3 (03:45→21:51)
[2018-08-14] MEDS: DEXAMETHASONE 4 MG/1 ML VIAL IV SCH ×2 (08:39→21:14)
[2018-08-14] MEDS: HYDROCORTISONE 10 MG TABLET PO SCH ×2 (08:40→21:13)
[2018-08-14] MEDS: BENZTROPINE 1 MG TABLET PO SCH ×2 (08:40→21:13)
[2018-08-14] MEDS: FAMOTIDINE 20 MG TABLET PO SCH ×2 (08:40→21:12)
[2018-08-14] MEDS: POLYETHYLENE GLYCOL POWDER 17 GM PACK PO SCH (08:43)
[2018-08-14] MEDS: SENNA 8.6 MG TABLET PO SCH ×2 (08:43→21:15)
[2018-08-14] MEDS: OXcarbazepine 300 MG TABLET PO SCH ×2 (14:53→21:13)
[2018-08-14] MEDS: risperiDONE 1 MG TABLET PO SCH ×2 (14:53→18:59)
[2018-08-14] MEDS: ENOXAPARIN 40 MG/0.4 ML SYRINGE SUBCUT SCH (16:32)
[2018-08-14] MEDS: PANTOPRAZOLE 40 MG VIAL IV SCH (16:33)
[2018-08-15] MEDS: INSULIN REGULAR 100 UNIT/ML SUBCUT SCH ×4 (00:38→18:06)
[2018-08-15] MEDS: ONDANSETRON 4 MG TABLET PO SCH ×2 (01:48→08:34)
[2018-08-15 03:46] LABS: Basophils % 0.2 % (0.0-0.8); Eosinophils % 0.2 % (0.00-10.9); Hematocrit 31.9 VOL% (42.0-52.0); Immature Granulocytes % 0.7 %; Immature Granulocytes Absolute 0.04 #; Lymphocytes # 0.8 10*3/uL (1.4-4.0); Mean Corpuscular HGB Conc 34.5 GM/DL (32-36); Mean Corpuscular Hemoglobin 30 PG (27-34); Mean Corpuscular Volume 87.2 FL (87-102); Mean Platelet Volume 11.3 FL (9.6-12.0); Monocytes # 0.2 10*3/uL (0.11-0.8); Monocytes % 3.6 % (1.7-12.7); Neutrophils # 4.8 10*3/uL (1.4-7.4); Neutrophils % 82.3 % (38.7-73.9); Platelet Count 156 T/CUMM (130-400); Red Blood Count 3.66 MC/CUMM (3.8-5.5); Red Cell Distribution Width 15.2 % (9.3-17.3); White Blood Count 5.8 T/CUMM (4-12)
[2018-08-15 04:08] LABS: Calcium 8.5 MG/DL (8.5-10.1); Osmolality,Calculated 280.3 MOS/KG (273-304); Potassium 4.1 MMOL/L (3.5-5.1)
[2018-08-15] MEDS: MAGNESIUM SULF RIDER 2 GM in PREMIX 1 EACH IV PRN (04:24)
[2018-08-15] MEDS: MEROPENEM 1,000 MG in SODIUM CHLORIDE 0.9% 100 ML IV SCH (08:30)
[2018-08-15] MEDS: BENZTROPINE 1 MG TABLET PO SCH ×2 (08:34→21:31)
[2018-08-15] MEDS: FAMOTIDINE 20 MG TABLET PO SCH ×2 (08:35→21:31)
[2018-08-15] MEDS: HYDROCORTISONE 10 MG TABLET PO SCH ×2 (08:36→21:31)
[2018-08-15] MEDS: SENNA 8.6 MG TABLET PO SCH ×2 (08:36→21:31)
[2018-08-15] MEDS: POLYETHYLENE GLYCOL POWDER 17 GM PACK PO SCH (08:36)
[2018-08-15] MEDS: ZINC OXIDE PASTE 113 GM TUBE TOP SCH ×2 (08:37→21:58)
[2018-08-15] MEDS: SODIUM CHLORIDE 0.9% 1,000 ML IV SCH ×2 (09:16→13:49)
[2018-08-15] MEDS ORDERED: ONDANSETRON 4 MG TABLET PO PRN (09:47)
[2018-08-15] MEDS ORDERED: MAGNESIUM SULF RIDER 2 GM in PREMIX 1 EACH IV ONE (09:52)
[2018-08-15] MEDS: cefTAZidime 1,000 MG in SYRINGE 1 EACH IV SCH ×2 (10:21→17:05)
[2018-08-15] MEDS: amLODIPine 10 MG TABLET PO SCH (10:25)
[2018-08-15] MEDS: OXcarbazepine 300 MG TABLET PO SCH ×2 (13:55→21:31)
[2018-08-15] MEDS: risperiDONE 1 MG TABLET PO SCH ×2 (13:55→18:00)
[2018-08-15] MEDS: ENOXAPARIN 40 MG/0.4 ML SYRINGE SUBCUT SCH (17:05)
[2018-08-16] MEDS: INSULIN REGULAR 100 UNIT/ML SUBCUT SCH ×5 (01:16→23:56)
[2018-08-16] MEDS: ZIPRASIDONE 20 MG/1 ML VIAL IM PRN ×2 (04:16→15:58)
[2018-08-16 04:44] LABS: Basophils % 0.2 % (0.0-0.8); Eosinophils # 0.2 10*3/uL (0.0-0.87); Eosinophils % 2.9 % (0.00-10.9); Hematocrit 35.3 VOL% (42.0-52.0); Hemoglobin 11.9 GM/DL (14.0-18.0); Immature Granulocytes % 0.2 %; Immature Granulocytes Absolute 0.01 #; Lymphocytes # 1.3 10*3/uL (1.4-4.0); Lymphocytes % 25.9 % (21.2-54.2); Mean Corpuscular HGB Conc 33.7 GM/DL (32-36); Mean Corpuscular Hemoglobin 30 PG (27-34); Mean Corpuscular Volume 87.4 FL (87-102); Mean Platelet Volume 11.1 FL (9.6-12.0); Monocytes # 0.4 10*3/uL (0.11-0.8); Monocytes % 8.2 % (1.7-12.7); Neutrophils # 3.2 10*3/uL (1.4-7.4); Neutrophils % 62.6 % (38.7-73.9); Platelet Count 160 T/CUMM (130-400); Red Blood Count 4.04 MC/CUMM (3.8-5.5); Red Cell Distribution Width 15.4 % (9.3-17.3); White Blood Count 5.1 T/CUMM (4-12)
[2018-08-16 05:04] LABS: Calcium 8.9 MG/DL (8.5-10.1); Osmolality,Calculated 279.3 MOS/KG (273-304); Potassium 3.9 MMOL/L (3.5-5.1)
[2018-08-16] MEDS: cefTAZidime 1,000 MG in SYRINGE 1 EACH IV SCH ×2 (06:25→10:02)
[2018-08-16] MEDS: BISACODYL 10 MG SUPP RECTAL SCH (08:43)
[2018-08-16] MEDS: POLYETHYLENE GLYCOL POWDER 17 GM PACK PO SCH ×2 (08:43→09:11)
[2018-08-16] MEDS: BENZTROPINE 1 MG TABLET PO SCH ×3 (08:44→20:32)
[2018-08-16] MEDS: SENNA 8.6 MG TABLET PO SCH ×3 (08:44→20:32)
[2018-08-16] MEDS: HYDROCORTISONE 10 MG TABLET PO SCH ×3 (08:44→20:32)
[2018-08-16] MEDS: amLODIPine 10 MG TABLET PO SCH ×2 (08:44→09:11)
[2018-08-16] MEDS: FAMOTIDINE 20 MG TABLET PO SCH ×3 (08:44→20:32)
[2018-08-16] MEDS: ENOXAPARIN 40 MG/0.4 ML SYRINGE SUBCUT SCH (09:16)
[2018-08-16] MEDS: SODIUM CHLORIDE 0.9% 1,000 ML IV SCH (10:36)
[2018-08-16] MEDS: LEVOFLOXACIN 750 MG TABLET PO SCH (12:50)
[2018-08-16] MEDS: ZINC OXIDE PASTE 113 GM TUBE TOP SCH ×2 (14:06→20:33)
[2018-08-16] MEDS: OXcarbazepine 300 MG TABLET PO SCH ×2 (14:20→20:33)
[2018-08-16] MEDS: risperiDONE 1 MG TABLET PO SCH ×2 (14:20→17:00)
[2018-08-17] MEDS: INSULIN REGULAR 100 UNIT/ML SUBCUT SCH ×3 (06:08→18:12)
[2018-08-17] MEDS: POLYETHYLENE GLYCOL POWDER 17 GM PACK PO SCH (08:44)
[2018-08-17] MEDS: amLODIPine 10 MG TABLET PO SCH (08:45)
[2018-08-17] MEDS: BENZTROPINE 1 MG TABLET PO SCH ×2 (08:45→20:13)
[2018-08-17] MEDS: LEVOFLOXACIN 750 MG TABLET PO SCH (08:45)
[2018-08-17] MEDS: ENOXAPARIN 40 MG/0.4 ML SYRINGE SUBCUT SCH (08:45)
[2018-08-17] MEDS: HYDROCORTISONE 10 MG TABLET PO SCH ×2 (08:45→20:13)
[2018-08-17] MEDS: SENNA 8.6 MG TABLET PO SCH ×2 (08:45→20:13)
[2018-08-17] MEDS: FAMOTIDINE 20 MG TABLET PO SCH ×2 (08:45→20:13)
[2018-08-17] MEDS: ZINC OXIDE PASTE 113 GM TUBE TOP SCH ×2 (10:24→20:14)
[2018-08-17] MEDS ORDERED: SODIUM CHLORIDE 0.9% 1,000 ML IV ONE (11:40)
[2018-08-17 12:13] LABS: Allen Test Positive
[2018-08-17 12:15] LABS: ABG Base Excess 1.9 MMOL/L (-2.5-2.5); ABG HCO3 26.2 MMOL/L (20-26); ABG Oxygen Saturation 98.3 % (95-100); ABG PCO2 39.6 MM HG (35-48); ABG PH 7.438 (7.35-7.45); ABG TCO2 27.4 MMOL/L (23-27)
[2018-08-17 12:59] LABS: Calcium 9.1 MG/DL (8.5-10.1); Osmolality,Calculated 281.3 MOS/KG (273-304)
[2018-08-17] MEDS: risperiDONE 1 MG TABLET PO SCH ×2 (14:07→18:12)
[2018-08-17] MEDS: OXcarbazepine 300 MG TABLET PO SCH ×2 (14:07→20:14)
[2018-08-17 16:06] LABS: Basophils % 0.2 % (0.0-0.8); Eosinophils # 0.1 10*3/uL (0.0-0.87); Eosinophils % 1.6 % (0.00-10.9); Hematocrit 33.3 VOL% (42.0-52.0); Hemoglobin 10.9 GM/DL (14.0-18.0); Immature Granulocytes % 0.3 %; Immature Granulocytes Absolute 0.02 #; Lymphocytes # 1.1 10*3/uL (1.4-4.0); Lymphocytes % 19.5 % (21.2-54.2); Mean Corpuscular HGB Conc 32.7 GM/DL (32-36); Mean Corpuscular Hemoglobin 29 PG (27-34); Mean Corpuscular Volume 89.8 FL (87-102); Mean Platelet Volume 10.8 FL (9.6-12.0); Monocytes # 0.8 10*3/uL (0.11-0.8); Monocytes % 14.3 % (1.7-12.7); Neutrophils # 3.7 10*3/uL (1.4-7.4); Neutrophils % 64.1 % (38.7-73.9); Platelet Count 158 T/CUMM (130-400); Red Blood Count 3.71 MC/CUMM (3.8-5.5); Red Cell Distribution Width 15.4 % (9.3-17.3); White Blood Count 5.8 T/CUMM (4-12)
[2018-08-18] MEDS: INSULIN REGULAR 100 UNIT/ML SUBCUT SCH ×4 (00:14→18:05)
[2018-08-18 08:40] LABS: Basophils % 0.2 % (0.0-0.8); Eosinophils # 0.1 10*3/uL (0.0-0.87); Eosinophils % 0.9 % (0.00-10.9); Hematocrit 30.1 VOL% (42.0-52.0); Hemoglobin 9.9 GM/DL (14.0-18.0); Immature Granulocytes % 0.3 %; Immature Granulocytes Absolute 0.04 #; Lymphocytes # 1.7 10*3/uL (1.4-4.0); Lymphocytes % 14.2 % (21.2-54.2); Mean Corpuscular HGB Conc 32.9 GM/DL (32-36); Mean Corpuscular Hemoglobin 29 PG (27-34); Mean Corpuscular Volume 89.1 FL (87-102); Mean Platelet Volume 11.1 FL (9.6-12.0); Monocytes # 1.1 10*3/uL (0.11-0.8); Neutrophils # 8.9 10*3/uL (1.4-7.4); Neutrophils % 75.4 % (38.7-73.9); Platelet Count 141 T/CUMM (130-400); Red Blood Count 3.38 MC/CUMM (3.8-5.5); Red Cell Distribution Width 15.5 % (9.3-17.3); White Blood Count 11.7 T/CUMM (4-12)
[2018-08-18] MEDS: HYDROCORTISONE 10 MG TABLET PO SCH ×2 (08:52→20:49)
[2018-08-18] MEDS: BENZTROPINE 1 MG TABLET PO SCH ×3 (08:52→20:48)
[2018-08-18] MEDS: SODIUM CHLORIDE 0.9% 1,000 ML IV SCH ×2 (08:52→18:32)
[2018-08-18] MEDS: LEVOFLOXACIN 750 MG TABLET PO SCH (08:52)
[2018-08-18] MEDS: FAMOTIDINE 20 MG TABLET PO SCH ×2 (08:52→20:49)
[2018-08-18] MEDS: SENNA 8.6 MG TABLET PO SCH ×2 (08:52→20:49)
[2018-08-18] MEDS: ENOXAPARIN 40 MG/0.4 ML SYRINGE SUBCUT SCH (08:52)
[2018-08-18] MEDS: ZINC OXIDE PASTE 113 GM TUBE TOP SCH ×2 (08:53→21:57)
[2018-08-18] MEDS: amLODIPine 10 MG TABLET PO SCH (08:53)
[2018-08-18] MEDS: POLYETHYLENE GLYCOL POWDER 17 GM PACK PO SCH (09:00)
[2018-08-18 09:07] LABS: Calcium 8.9 MG/DL (8.5-10.1); Osmolality,Calculated 283.1 MOS/KG (273-304); Potassium 3.9 MMOL/L (3.5-5.1)
[2018-08-18] MEDS ORDERED: MAGNESIUM SULF RIDER 4 GM in PREMIX 1 EACH IV PRN (09:26)
[2018-08-18] MEDS ORDERED: MAGNESIUM SULF RIDER 50 ML IV ONE (09:29)
[2018-08-18] MEDS: MAGNESIUM SULF RIDER 2 GM in PREMIX 1 EACH IV PRN (09:30)
[2018-08-18] MEDS: TAMSULOSIN 0.4 MG CAPSULE PO SCH ×2 (10:56→18:05)
[2018-08-18] MEDS: OXcarbazepine 300 MG TABLET PO SCH ×2 (13:50→20:48)
[2018-08-18] MEDS: risperiDONE 1 MG TABLET PO SCH ×2 (13:50→18:05)
[2018-08-18 17:37] LABS: Basophils % 0.3 % (0.0-0.8); Eosinophils # 0.2 10*3/uL (0.0-0.87); Eosinophils % 1.9 % (0.00-10.9); Hemoglobin 10.6 GM/DL (14.0-18.0); Immature Granulocytes % 0.8 %; Immature Granulocytes Absolute 0.06 #; Lymphocytes # 1.6 10*3/uL (1.4-4.0); Lymphocytes % 20.8 % (21.2-54.2); Mean Corpuscular HGB Conc 32.1 GM/DL (32-36); Mean Corpuscular Hemoglobin 30 PG (27-34); Mean Corpuscular Volume 92.2 FL (87-102); Mean Platelet Volume 10.6 FL (9.6-12.0); Monocytes # 0.7 10*3/uL (0.11-0.8); Monocytes % 8.8 % (1.7-12.7); Neutrophils # 5.3 10*3/uL (1.4-7.4); Neutrophils % 67.4 % (38.7-73.9); Platelet Count 102 T/CUMM (130-400); Red Blood Count 3.58 MC/CUMM (3.8-5.5); Red Cell Distribution Width 15.6 % (9.3-17.3); White Blood Count 7.9 T/CUMM (4-12)
[2018-08-18 18:18] LABS: Calcium 8.4 MG/DL (8.5-10.1); Osmolality,Calculated 279.4 MOS/KG (273-304); Potassium 3.9 MMOL/L (3.5-5.1)
[2018-08-18] MEDS: ZIPRASIDONE 20 MG/1 ML VIAL IM PRN (23:08)
[2018-08-19] MEDS: INSULIN REGULAR 100 UNIT/ML SUBCUT SCH ×4 (02:53→17:15)
[2018-08-19] MEDS: SODIUM CHLORIDE 0.9% 1,000 ML IV SCH ×4 (03:55→16:31)
[2018-08-19] MEDS: SENNA 8.6 MG TABLET PO SCH ×2 (09:10→21:40)
[2018-08-19] MEDS: HYDROCORTISONE 10 MG TABLET PO SCH ×2 (09:10→21:40)
[2018-08-19] MEDS: POLYETHYLENE GLYCOL POWDER 17 GM PACK PO SCH (09:10)
[2018-08-19] MEDS: TAMSULOSIN 0.4 MG CAPSULE PO SCH (09:10)
[2018-08-19] MEDS: BISACODYL 10 MG SUPP RECTAL SCH (09:10)
[2018-08-19] MEDS: ENOXAPARIN 40 MG/0.4 ML SYRINGE SUBCUT SCH (09:10)
[2018-08-19] MEDS: FAMOTIDINE 20 MG TABLET PO SCH ×2 (09:10→21:41)
[2018-08-19] MEDS: LEVOFLOXACIN 750 MG TABLET PO SCH (09:10)
[2018-08-19] MEDS: BENZTROPINE 1 MG TABLET PO SCH ×2 (09:10→21:40)
[2018-08-19] MEDS: amLODIPine 10 MG TABLET PO SCH (09:11)
[2018-08-19] MEDS: ZINC OXIDE PASTE 113 GM TUBE TOP SCH ×2 (09:11→21:41)
[2018-08-19] MEDS: risperiDONE 1 MG TABLET PO SCH ×2 (13:42→17:18)
[2018-08-19] MEDS: OXcarbazepine 300 MG TABLET PO SCH ×2 (16:30→21:40)
[2018-08-20] MEDS: ZIPRASIDONE 20 MG/1 ML VIAL IM PRN ×2 (00:34→23:05)
[2018-08-20 04:45] LABS: Basophils % 0.1 % (0.0-0.8); Eosinophils # 0.1 10*3/uL (0.0-0.87); Eosinophils % 0.8 % (0.00-10.9); Hematocrit 27.2 VOL% (42.0-52.0); Hemoglobin 9.2 GM/DL (14.0-18.0); Immature Granulocytes % 0.4 %; Immature Granulocytes Absolute 0.06 #; Lymphocytes # 1.2 10*3/uL (1.4-4.0); Lymphocytes % 8.9 % (21.2-54.2); Mean Corpuscular HGB Conc 33.8 GM/DL (32-36); Mean Corpuscular Hemoglobin 29 PG (27-34); Mean Corpuscular Volume 86.9 FL (87-102); Mean Platelet Volume 11.2 FL (9.6-12.0); Monocytes # 0.8 10*3/uL (0.11-0.8); Monocytes % 5.8 % (1.7-12.7); Neutrophils # 11.3 10*3/uL (1.4-7.4); Platelet Count 153 T/CUMM (130-400); Red Blood Count 3.13 MC/CUMM (3.8-5.5); Red Cell Distribution Width 14.9 % (9.3-17.3); White Blood Count 13.4 T/CUMM (4-12)
[2018-08-20] MEDS: INSULIN REGULAR 100 UNIT/ML SUBCUT SCH ×4 (04:45→18:29)
[2018-08-20 05:09] LABS: Calcium 8.4 MG/DL (8.5-10.1); Osmolality,Calculated 278.4 MOS/KG (273-304); Potassium 3.7 MMOL/L (3.5-5.1)
[2018-08-20] MEDS ORDERED: MAGNESIUM SULF RIDER 2 GM in PREMIX 1 EACH IV ONE (06:57)
[2018-08-20] MEDS: BENZTROPINE 1 MG TABLET PO SCH ×2 (08:50→22:41)
[2018-08-20] MEDS: POLYETHYLENE GLYCOL POWDER 17 GM PACK PO SCH (08:50)
[2018-08-20] MEDS: LEVOFLOXACIN 750 MG TABLET PO SCH (08:50)
[2018-08-20] MEDS: ZINC OXIDE PASTE 113 GM TUBE TOP SCH ×2 (08:50→22:43)
[2018-08-20] MEDS: TAMSULOSIN 0.4 MG CAPSULE PO SCH (08:51)
[2018-08-20] MEDS: MAGNESIUM CHLORIDE 64 MG TABLET PO SCH ×2 (08:51→22:43)
[2018-08-20] MEDS: HYDROCORTISONE 10 MG TABLET PO SCH ×2 (08:51→22:43)
[2018-08-20] MEDS: SENNA 8.6 MG TABLET PO SCH ×2 (08:52→22:43)
[2018-08-20] MEDS: FAMOTIDINE 20 MG TABLET PO SCH ×2 (08:53→22:42)
[2018-08-20] MEDS: ENOXAPARIN 40 MG/0.4 ML SYRINGE SUBCUT SCH (09:20)
[2018-08-20] MEDS: SODIUM CHLORIDE 0.9% 1,000 ML IV SCH (11:19)
[2018-08-20] MEDS: risperiDONE 1 MG TABLET PO SCH ×2 (16:00→18:53)
[2018-08-20] MEDS: OXcarbazepine 300 MG TABLET PO SCH ×2 (16:00→22:42)
[2018-08-21] MEDS: INSULIN REGULAR 100 UNIT/ML SUBCUT SCH ×3 (00:13→12:57)
[2018-08-21 04:58] LABS: Basophils % 0.3 % (0.0-0.8); Eosinophils # 0.1 10*3/uL (0.0-0.87); Eosinophils % 1.8 % (0.00-10.9); Hematocrit 29.3 VOL% (42.0-52.0); Hemoglobin 9.7 GM/DL (14.0-18.0); Immature Granulocytes % 0.3 %; Immature Granulocytes Absolute 0.02 #; Lymphocytes # 1.3 10*3/uL (1.4-4.0); Lymphocytes % 21.1 % (21.2-54.2); Mean Corpuscular HGB Conc 33.1 GM/DL (32-36); Mean Corpuscular Hemoglobin 29 PG (27-34); Mean Corpuscular Volume 87.5 FL (87-102); Mean Platelet Volume 11.6 FL (9.6-12.0); Monocytes # 0.5 10*3/uL (0.11-0.8); Monocytes % 8.1 % (1.7-12.7); Neutrophils # 4.1 10*3/uL (1.4-7.4); Neutrophils % 68.4 % (38.7-73.9); Platelet Count 158 T/CUMM (130-400); Red Blood Count 3.35 MC/CUMM (3.8-5.5); Red Cell Distribution Width 15.2 % (9.3-17.3); White Blood Count 6.1 T/CUMM (4-12)
[2018-08-21 05:30] LABS: Calcium 9.4 MG/DL (8.5-10.1); Osmolality,Calculated 278.3 MOS/KG (273-304); Potassium 3.8 MMOL/L (3.5-5.1)
[2018-08-21] MEDS: SODIUM CHLORIDE 0.9% 1,000 ML IV SCH (07:12)
[2018-08-21] MEDS: MAGNESIUM CHLORIDE 64 MG TABLET PO SCH (10:19)
[2018-08-21] MEDS: SENNA 8.6 MG TABLET PO SCH (10:19)
[2018-08-21] MEDS: LEVOFLOXACIN 750 MG TABLET PO SCH (10:20)
[2018-08-21] MEDS: HYDROCORTISONE 10 MG TABLET PO SCH (10:20)
[2018-08-21] MEDS: TAMSULOSIN 0.4 MG CAPSULE PO SCH (10:20)
[2018-08-21] MEDS: FAMOTIDINE 20 MG TABLET PO SCH (10:20)
[2018-08-21] MEDS: BENZTROPINE 1 MG TABLET PO SCH (10:21)
[2018-08-21] MEDS: ENOXAPARIN 40 MG/0.4 ML SYRINGE SUBCUT SCH (10:37)
[2018-08-21] MEDS: POLYETHYLENE GLYCOL POWDER 17 GM PACK PO SCH (10:38)
[2018-08-21] MEDS: MAGNESIUM SULF RIDER 2 GM in PREMIX 1 EACH IV PRN (10:39)
[2018-08-21] MEDS: ZINC OXIDE PASTE 113 GM TUBE TOP SCH (10:49)
[2018-08-21 12:46] VITALS: BP 130/70
== END 2018-08-21 12:57 | DRG 690 ==
LOC: EDBD → EDUNIT# → N.ED 12:59 → N.EDINP 15:57 → SUATTDRO 15:57 → N.ICU 16:44 → N.2E 08-15 11:23 → N.CC 08-17 11:24 → N.TELES 08-19 14:07
PROVIDERS: ADMIT Internal Medicine; ATTEND Internal Medicine

== ENCOUNTER 2018-09-05 23:00 | Inpatient (IN) ==
[2018-09-05] MEDS ORDERED: PANTOPRAZOLE 40 MG VIAL IV STA (23:22)
[2018-09-05] MEDS ORDERED: ONDANSETRON 4 MG/2 ML VIAL IV STA (23:22)
[2018-09-05] MEDS ORDERED: SODIUM CHLORIDE 0.9% 500 ML IV STA (23:22)
[2018-09-06 00:28] LABS: Basophils % 0.2 % (0.0-0.8); Eosinophils % 0.3 % (0.00-10.9); Hematocrit 40.7 VOL% (42.0-52.0); Hemoglobin 13.4 GM/DL (14.0-18.0); Immature Granulocytes % 0.5 %; Immature Granulocytes Absolute 0.05 #; Lymphocytes # 0.7 10*3/uL (1.4-4.0); Mean Corpuscular HGB Conc 32.9 GM/DL (32-36); Mean Corpuscular Hemoglobin 29 PG (27-34); Mean Corpuscular Volume 88.7 FL (87-102); Mean Platelet Volume 11.6 FL (9.6-12.0); Monocytes % 8.6 % (1.7-12.7); Neutrophils # 9.4 10*3/uL (1.4-7.4); Neutrophils % 84.4 % (38.7-73.9); Platelet Count 112 T/CUMM (130-400); Red Blood Count 4.59 MC/CUMM (3.8-5.5); Red Cell Distribution Width 16.1 % (9.3-17.3); White Blood Count 11.1 T/CUMM (4-12)
[2018-09-06 00:41] LABS: PT Patient Result 10.2 SECS
[2018-09-06 00:51] LABS: Albumin 3.3 G/DL (3.4-5.0); Bilirubin,Total 0.4 MG/DL (0.2-1.0); Calcium 10.2 MG/DL (8.5-10.1); Osmolality,Calculated 283.5 MOS/KG (273-304); Potassium 4.1 MMOL/L (3.5-5.1); Total Protein 8.5 G/DL (6.4-8.3)
[2018-09-06] MEDS ORDERED: SODIUM CHLORIDE 0.9% 500 ML IV STA (00:59)
[2018-09-06] MEDS ORDERED: SODIUM BICARBONATE 50 MEQ/50 ML VIAL IV STA (00:59)
[2018-09-06] MEDS ORDERED: SODIUM BICARBONATE 50 MEQ/50 ML SYRINGE IV ONE (01:14)
[2018-09-06] MEDS ORDERED: CLINDAMYCIN INJ 900 MG in PREMIX 1 EACH IV STA (02:21)
[2018-09-06] MEDS ORDERED: PROMETHAZINE 25 MG/1 ML VIAL IM PRN (04:23)
[2018-09-06] MEDS ORDERED: ONDANSETRON 4 MG/2 ML VIAL IV PRN (04:23)
[2018-09-06] MEDS ORDERED: MORPHINE 4 MG/1 ML VIAL IV PRN (04:23)
[2018-09-06] MEDS ORDERED: ENOXAPARIN 30 MG/0.3 ML SYRINGE SUBCUT SCH (04:30)
[2018-09-06] MEDS: DEXTROSE 5% NACL 0.45% 1,000 ML IV SCH (06:17)
[2018-09-06] MEDS: PIPERACILLIN/TAZOBACTAM 3,375 MG in SODIUM CHLORIDE 0.9% 100 ML IV SCH ×3 (06:21→20:59)
[2018-09-06 07:00] LABS: Apearance,Urine CLEAR (Clear); Bilirubin,Urine Negative (Negative); Blood, Urine Negative (Negative); Glucose,Urine (UA) Negative (Negative); Hyaline Casts,Urine 1 /LPF (0-3); Ketones,Urine Negative (Negative); Mucus,Urine Occasional /LPF (Occasional); Nitrite,Urine Negative (Negative); Protein,Urine Negative; RBC,Urine <1 /HPF (0-4); Squamous Epithelial Cell,Urine Occasional /HPF (0-10); Urine Color Yellow (Yellow); Urine Specific Gravity 1.051 (1.001-1.035); Urine Urobilinogen < 2.0 EU/DL (0.2-1.0); WBC,Urine <1 /HPF (0-6)
[2018-09-06] MEDS ORDERED: BENZTROPINE 2 MG TABLET PO SCH (13:00)
[2018-09-06] MEDS: amLODIPine 10 MG TABLET PO SCH (13:56)
[2018-09-06] MEDS: BENZTROPINE 1 MG TABLET PO SCH ×2 (14:10→20:56)
[2018-09-06] MEDS: risperiDONE 1 MG TABLET PO SCH ×2 (14:11→20:56)
[2018-09-06] MEDS: OXcarbazepine 300 MG TABLET PO SCH ×2 (14:11→20:57)
[2018-09-06] MEDS: HYDROCORTISONE 10 MG TABLET PO SCH ×2 (14:11→20:57)
[2018-09-06] MEDS: CARVEDILOL 6.25 MG TABLET PO SCH (18:54)
[2018-09-07 05:27] LABS: Basophils % 0.1 % (0.0-0.8); Eosinophils # 0.1 10*3/uL (0.0-0.87); Eosinophils % 0.8 % (0.00-10.9); Hematocrit 28.5 VOL% (42.0-52.0); Hemoglobin 9.3 GM/DL (14.0-18.0); Immature Granulocytes % 0.1 %; Immature Granulocytes Absolute 0.01 #; Lymphocytes # 1.3 10*3/uL (1.4-4.0); Lymphocytes % 15.1 % (21.2-54.2); Mean Corpuscular HGB Conc 32.6 GM/DL (32-36); Mean Corpuscular Hemoglobin 29 PG (27-34); Mean Corpuscular Volume 89.3 FL (87-102); Mean Platelet Volume 12.1 FL (9.6-12.0); Monocytes # 1.4 10*3/uL (0.11-0.8); Monocytes % 16.2 % (1.7-12.7); Neutrophils # 5.6 10*3/uL (1.4-7.4); Neutrophils % 67.7 % (38.7-73.9); Platelet Count 80 T/CUMM (130-400); Red Blood Count 3.19 MC/CUMM (3.8-5.5); Red Cell Distribution Width 16.4 % (9.3-17.3); White Blood Count 8.3 T/CUMM (4-12)
[2018-09-07] MEDS: PIPERACILLIN/TAZOBACTAM 3,375 MG in SODIUM CHLORIDE 0.9% 100 ML IV SCH ×3 (05:44→20:44)
[2018-09-07 05:50] LABS: Albumin 2.3 G/DL (3.4-5.0); Bilirubin,Total 0.4 MG/DL (0.2-1.0); Osmolality,Calculated 287.1 MOS/KG (273-304); Potassium 3.5 MMOL/L (3.5-5.1); Total Protein 6.4 G/DL (6.4-8.3)
[2018-09-07 05:51] LABS: Platelet Estimate Decreased; Polychromasia Few; Target Cells Few
[2018-09-07] MEDS: CARVEDILOL 6.25 MG TABLET PO SCH ×2 (10:36→17:16)
[2018-09-07] MEDS: BENZTROPINE 1 MG TABLET PO SCH ×2 (10:36→20:48)
[2018-09-07] MEDS: amLODIPine 10 MG TABLET PO SCH (10:38)
[2018-09-07] MEDS: HYDROCORTISONE 10 MG TABLET PO SCH ×2 (10:38→20:48)
[2018-09-07] MEDS: DEXTROSE 5% NACL 0.45% 1,000 ML IV SCH (12:47)
[2018-09-07] MEDS: risperiDONE 1 MG TABLET PO SCH ×2 (14:39→20:47)
[2018-09-07] MEDS: OXcarbazepine 300 MG TABLET PO SCH ×2 (14:39→20:48)
[2018-09-07] MEDS: PANTOPRAZOLE 40 MG VIAL IV SCH (14:40)
[2018-09-08] MEDS: PIPERACILLIN/TAZOBACTAM 3,375 MG in SODIUM CHLORIDE 0.9% 100 ML IV SCH ×3 (05:08→21:46)
[2018-09-08 08:30] LABS: Osmolality,Calculated 280.3 MOS/KG (273-304); Potassium 3.7 MMOL/L (3.5-5.1)
[2018-09-08 09:06] LABS: Basophils % 0.2 % (0.0-0.8); Eosinophils # 0.1 10*3/uL (0.0-0.87); Hematocrit 30.2 VOL% (42.0-52.0); Immature Granulocytes % 0.3 %; Immature Granulocytes Absolute 0.02 #; Lymphocytes # 1.2 10*3/uL (1.4-4.0); Lymphocytes % 20.4 % (21.2-54.2); Mean Corpuscular HGB Conc 33.1 GM/DL (32-36); Mean Corpuscular Hemoglobin 29 PG (27-34); Mean Corpuscular Volume 88.8 FL (87-102); Mean Platelet Volume 11.6 FL (9.6-12.0); Monocytes # 0.8 10*3/uL (0.11-0.8); Neutrophils # 3.9 10*3/uL (1.4-7.4); Neutrophils % 65.1 % (38.7-73.9)
[2018-09-08 09:09] LABS: Platelet Count 92 T/CUMM (130-400)
[2018-09-08 09:30] LABS: Hypochromasia 1+; Platelet Estimate Decreased
[2018-09-08] MEDS: HYDROCORTISONE 10 MG TABLET PO SCH ×2 (10:10→21:52)
[2018-09-08] MEDS: BENZTROPINE 1 MG TABLET PO SCH ×2 (10:10→21:50)
[2018-09-08] MEDS: CARVEDILOL 6.25 MG TABLET PO SCH ×2 (10:10→16:07)
[2018-09-08] MEDS: PANTOPRAZOLE 40 MG VIAL IV SCH (10:11)
[2018-09-08] MEDS: amLODIPine 10 MG TABLET PO SCH (10:11)
[2018-09-08] MEDS: OXcarbazepine 300 MG TABLET PO SCH ×2 (14:36→21:52)
[2018-09-08] MEDS: risperiDONE 1 MG TABLET PO SCH ×2 (14:36→21:50)
[2018-09-08] MEDS: DEXTROSE 5% NACL 0.45% 1,000 ML IV SCH (19:30)
[2018-09-09] MEDS: PIPERACILLIN/TAZOBACTAM 3,375 MG in SODIUM CHLORIDE 0.9% 100 ML IV SCH ×3 (05:33→21:03)
[2018-09-09] MEDS: BENZTROPINE 1 MG TABLET PO SCH ×2 (09:11→21:05)
[2018-09-09] MEDS: PANTOPRAZOLE 40 MG VIAL IV SCH (09:11)
[2018-09-09] MEDS: amLODIPine 10 MG TABLET PO SCH (09:11)
[2018-09-09] MEDS: HYDROCORTISONE 10 MG TABLET PO SCH ×2 (09:11→21:05)
[2018-09-09] MEDS: CARVEDILOL 6.25 MG TABLET PO SCH ×2 (09:11→16:47)
[2018-09-09] MEDS: OXcarbazepine 300 MG TABLET PO SCH ×2 (13:58→21:04)
[2018-09-09] MEDS: risperiDONE 1 MG TABLET PO SCH ×2 (13:58→21:05)
[2018-09-09] MEDS: DEXTROSE 5% NACL 0.45% 1,000 ML IV SCH ×2 (15:40→21:01)
[2018-09-10 05:21] LABS: Basophils % 0.3 % (0.0-0.8); Eosinophils # 0.1 10*3/uL (0.0-0.87); Eosinophils % 1.8 % (0.00-10.9); Hematocrit 28.7 VOL% (42.0-52.0); Hemoglobin 9.7 GM/DL (14.0-18.0); Immature Granulocytes % 0.7 %; Immature Granulocytes Absolute 0.05 #; Lymphocytes # 1.7 10*3/uL (1.4-4.0); Lymphocytes % 23.4 % (21.2-54.2); Mean Corpuscular HGB Conc 33.8 GM/DL (32-36); Mean Corpuscular Hemoglobin 30 PG (27-34); Mean Corpuscular Volume 89.7 FL (87-102); Monocytes # 0.8 10*3/uL (0.11-0.8); Monocytes % 11.3 % (1.7-12.7); Neutrophils # 4.5 10*3/uL (1.4-7.4); Neutrophils % 62.5 % (38.7-73.9); Platelet Count 104 T/CUMM (130-400); Red Cell Distribution Width 15.2 % (9.3-17.3); White Blood Count 7.2 T/CUMM (4-12)
[2018-09-10 05:39] LABS: Calcium 8.5 MG/DL (8.5-10.1); Osmolality,Calculated 280.3 MOS/KG (273-304); Potassium 3.3 MMOL/L (3.5-5.1)
[2018-09-10] MEDS: PIPERACILLIN/TAZOBACTAM 3,375 MG in SODIUM CHLORIDE 0.9% 100 ML IV SCH (05:52)
[2018-09-10] MEDS ORDERED: MAGNESIUM SULF RIDER 4 GM in PREMIX 1 EACH IV PRN (08:14)
[2018-09-10] MEDS ORDERED: MAGNESIUM SULF RIDER 2 GM in PREMIX 1 EACH IV PRN (08:14)
[2018-09-10] MEDS ORDERED: LIDOCAINE 100 MG/5 ML SYRINGE ONE (09:00)
[2018-09-10] MEDS ORDERED: PROPOFOL 200 MG/20 ML VIAL IV ONE (09:00)
[2018-09-10] MEDS: amLODIPine 10 MG TABLET PO SCH (09:13)
[2018-09-10] MEDS: BENZTROPINE 1 MG TABLET PO SCH ×2 (09:13→20:34)
[2018-09-10] MEDS: CARVEDILOL 6.25 MG TABLET PO SCH ×2 (09:13→17:27)
[2018-09-10] MEDS: POTASSIUM CHLORIDE 20 MEQ TABLET PO PRN ×3 (09:14→13:12)
[2018-09-10] MEDS: HYDROCORTISONE 10 MG TABLET PO SCH ×2 (09:14→20:34)
[2018-09-10] MEDS: PANTOPRAZOLE 40 MG VIAL IV SCH (09:14)
[2018-09-10] MEDS: DEXTROSE 5% NACL 0.45% 1,000 ML IV SCH ×2 (11:14→23:50)
[2018-09-10] MEDS: risperiDONE 1 MG TABLET PO SCH ×2 (13:12→20:34)
[2018-09-10] MEDS: OXcarbazepine 300 MG TABLET PO SCH ×2 (13:13→20:34)
[2018-09-11] MEDS: HYDROCORTISONE 10 MG TABLET PO SCH (08:56)
[2018-09-11] MEDS: PANTOPRAZOLE 40 MG VIAL IV SCH (08:56)
[2018-09-11] MEDS: BENZTROPINE 1 MG TABLET PO SCH (08:56)
[2018-09-11] MEDS: amLODIPine 10 MG TABLET PO SCH (08:57)
[2018-09-11] MEDS: CARVEDILOL 6.25 MG TABLET PO SCH (08:57)
[2018-09-11 12:04] VITALS: BP 122/73
[2018-09-11] MEDS: DEXTROSE 5% NACL 0.45% 1,000 ML IV SCH (13:58)
[2018-09-11] MEDS: risperiDONE 1 MG TABLET PO SCH (13:58)
[2018-09-11] MEDS: OXcarbazepine 300 MG TABLET PO SCH (13:59)
== END 2018-09-11 14:30 | DRG 377 ==
LOC: EDBD → EDUNIT# → N.ED 23:00 → N.EDINP 09-06 03:25 → SUATTDRO 09-06 03:25 → N.2E 09-06 03:51
PROVIDERS: ADMIT Internal Medicine; ATTEND Family Medicine

== ENCOUNTER 2018-11-13 21:16 | Inpatient (IN) ==
[2018-11-13] MEDS ORDERED: SODIUM CHLORIDE 0.9% 1,000 ML IV STA (21:49)
[2018-11-13] MEDS ORDERED: LEVOFLOXACIN INJ 750 MG in PREMIX 1 EACH IV STA (21:49)
[2018-11-13] MEDS ORDERED: DEXTROSE 50% 25 GM/50 ML SYRINGE IV ONE (21:53)
[2018-11-13] MEDS ORDERED: DEXTROSE 50% 25 GM/50 ML VIAL IV ONE (21:53)
[2018-11-13 22:48] LABS: Eosinophils % 0.9 % (0.00-10.9); Hematocrit 27.9 VOL% (42.0-52.0); Hemoglobin 9.1 GM/DL (14.0-18.0); Immature Granulocytes % 0.5 %; Immature Granulocytes Absolute 0.01 #; Lymphocytes # 0.6 10*3/uL (1.4-4.0); Mean Corpuscular HGB Conc 32.6 GM/DL (32-36); Mean Corpuscular Hemoglobin 29 PG (27-34); Mean Corpuscular Volume 89.1 FL (87-102); Mean Platelet Volume 12.1 FL (9.6-12.0); Monocytes # 0.1 10*3/uL (0.11-0.8); Monocytes % 2.3 % (1.7-12.7); Neutrophils # 1.5 10*3/uL (1.4-7.4); Neutrophils % 68.3 % (38.7-73.9); Platelet Count 89 T/CUMM (130-400); Red Blood Count 3.13 MC/CUMM (3.8-5.5); Red Cell Distribution Width 16.1 % (9.3-17.3); White Blood Count 2.2 T/CUMM (4-12)
[2018-11-13 22:56] LABS: PT Patient Result 11.1 SECS
[2018-11-13 23:21] LABS: Alanine Aminotransferase 25 U/L (16-61); Albumin 2.3 G/DL (3.4-5.0); Alkaline Phosphatase 64 U/L (45-117); Aspartate Amino Transferase 52 U/L (0-37); Bilirubin,Total < 0.39 MG/DL (0.2-1.0); Blood Urea Nitrogen 22 MG/DL (7-18); CKMB % 4.4 %; Calcium 9.1 MG/DL (8.5-10.1); Glucose 219 MG/DL (74-106); Osmolality,Calculated 286.5 MOS/KG (273-304); Sodium 139 MMOL/L (136-145); Total Protein 6.7 G/DL (6.4-8.3); Troponin I < 0.015 NG/ML (0.00-0.045)
[2018-11-13 23:24] LABS: Potassium 6.6 MMOL/L (3.5-5.1)
[2018-11-13] MEDS ORDERED: ALBUTEROL NEB SOLN 5 MG/ML 20 ML/BOTTLE CONT NEB STA (23:38)
[2018-11-13] MEDS ORDERED: CALCIUM CHLORIDE 1,000 MG/10 ML SYRINGE IV STA (23:38)
[2018-11-14 00:09] LABS: Apearance,Urine Slightly Hazy (Clear); Bilirubin,Urine Negative (Negative); Blood, Urine Negative (Negative); Glucose,Urine (UA) 50 mg/dL (Negative); Hyaline Casts,Urine 5 /LPF (0-3); Ketones,Urine Negative (Negative); Mucus,Urine Occasional /LPF (Occasional); Nitrite,Urine Negative (Negative); Protein,Urine Negative; RBC,Urine <1 /HPF (0-4); Urine Color Yellow (Yellow); Urine Specific Gravity 1.019 (1.001-1.035); Urine Urobilinogen < 2.0 EU/DL (0.2-1.0); WBC,Urine 1 /HPF (0-6)
[2018-11-14 00:13] LABS: Alanine Aminotransferase 18 U/L (16-61); Albumin 2.4 G/DL (3.4-5.0); Alkaline Phosphatase 64 U/L (45-117); Aspartate Amino Transferase 24 U/L (0-37); Bilirubin,Total < 0.39 MG/DL (0.2-1.0); Blood Urea Nitrogen 21 MG/DL (7-18); Glucose 148 MG/DL (74-106); Osmolality,Calculated 291.8 MOS/KG (273-304); Potassium 3.7 MMOL/L (3.5-5.1); Sodium 144 MMOL/L (136-145); Total Protein 5.8 G/DL (6.4-8.3)
[2018-11-14] MEDS ORDERED: SODIUM CHLORIDE 0.9% 1,000 ML IV STA (01:30)
[2018-11-14] MEDS ORDERED: ONDANSETRON 4 MG/2 ML VIAL IV PRN (02:04)
[2018-11-14] MEDS ORDERED: ACETAMINOPHEN 325 MG TABLET PO PRN (02:04)
[2018-11-14] MEDS ORDERED: GLUCAGON 1 MG VIAL IM PRN ×2 (02:04→06:27)
[2018-11-14] MEDS ORDERED: SODIUM CHLORIDE 0.45% 1,000 ML IV SCH (02:30)
[2018-11-14] MEDS ORDERED: SODIUM CHLORIDE 0.9% 1,000 ML IV ONE (02:37)
[2018-11-14] MEDS ORDERED: VANCOMYCIN INJ 1,000 MG in SODIUM CHLORIDE 0.9% 250 ML IV SCH (03:30)
[2018-11-14 06:12] LABS: Basophils % 0.5 % (0.0-0.8); Hematocrit 24.9 VOL% (42.0-52.0); Hemoglobin 8.1 GM/DL (14.0-18.0); Immature Granulocytes % 0.5 %; Immature Granulocytes Absolute 0.01 #; Lymphocytes # 0.5 10*3/uL (1.4-4.0); Lymphocytes % 23.6 % (21.2-54.2); Mean Corpuscular HGB Conc 32.5 GM/DL (32-36); Mean Corpuscular Hemoglobin 29 PG (27-34); Mean Corpuscular Volume 89.2 FL (87-102); Mean Platelet Volume 12.5 FL (9.6-12.0); Monocytes # 0.2 10*3/uL (0.11-0.8); Monocytes % 8.7 % (1.7-12.7); Neutrophils # 1.3 10*3/uL (1.4-7.4); Neutrophils % 65.7 % (38.7-73.9); Platelet Count 100 T/CUMM (130-400); Red Blood Count 2.79 MC/CUMM (3.8-5.5); Red Cell Distribution Width 15.9 % (9.3-17.3)
[2018-11-14] MEDS ORDERED: SODIUM CHLORIDE 0.9% 500 ML IV ONE (06:15)
[2018-11-14] MEDS ORDERED: DEXTROSE 50% 25 GM/50 ML VIAL IV PRN (06:27)
[2018-11-14 06:28] LABS: Calcium 9.6 MG/DL (8.5-10.1); Osmolality,Calculated 283.8 MOS/KG (273-304)
[2018-11-14 06:34] LABS: % Iron Saturation 51.4 % (18-50); Ferritin 856.5 ng/ml (26-388)
[2018-11-14] MEDS: DEXTROSE 50% 25 GM/50 ML SYRINGE IV PRN ×2 (06:35→10:57)
[2018-11-14 06:39] LABS: Risk Ratio 2.28; Thyroid Stimulating Hormone 1.52 uIU/ml (0.358-3.74)
[2018-11-14 07:19] LABS: Eosinophils 3 % (0-10); Hypochromasia 1+; Lymphocytes 16 % (20-55); Platelet Estimate Decreased; Segmented Neutrophils 73 % (50-85); Total Cells Counted 100
[2018-11-14] MEDS: DOPamine 800 MG/250 ML PREMIX IV PRN (07:34)
[2018-11-14] MEDS ORDERED: BENZTROPINE 2 MG TABLET PO SCH (09:00)
[2018-11-14] MEDS: ENOXAPARIN 40 MG/0.4 ML SYRINGE SUBCUT SCH (09:21)
[2018-11-14] MEDS: HYDROCORTISONE 100 MG VIAL IV SCH ×3 (09:22→20:25)
[2018-11-14] MEDS: MEROPENEM 1,000 MG in SODIUM CHLORIDE 0.9% 100 ML IV SCH ×2 (09:26→20:27)
[2018-11-14] MEDS: HYDROCORTISONE 10 MG TABLET PO SCH ×2 (09:31→21:20)
[2018-11-14] MEDS: BENZTROPINE 1 MG TABLET PO SCH ×2 (10:50→21:20)
[2018-11-14] MEDS: DEXTROSE 5% NACL 0.45% 1,000 ML IV SCH ×2 (11:23→19:26)
[2018-11-14] MEDS: INSULIN LISPRO 100 UNIT/ML SUBCUT SCH ×2 (11:29→17:28)
[2018-11-14] MEDS: OXcarbazepine 300 MG TABLET PO SCH ×2 (13:31→21:19)
[2018-11-14] MEDS: VANCOMYCIN INJ 1,000 MG in SODIUM CHLORIDE 0.9% 250 ML IV SCH (16:09)
[2018-11-15] MEDS: LORazepam 2 MG/1 ML VIAL IV PRN (00:11)
[2018-11-15] MEDS: INSULIN LISPRO 100 UNIT/ML SUBCUT SCH ×4 (00:13→18:58)
[2018-11-15] MEDS: HYDROCORTISONE 100 MG VIAL IV SCH ×4 (02:23→20:39)
[2018-11-15] MEDS: VANCOMYCIN INJ 1,000 MG in SODIUM CHLORIDE 0.9% 250 ML IV SCH ×2 (02:30→15:29)
[2018-11-15] MEDS: DEXTROSE 5% NACL 0.45% 1,000 ML IV SCH ×3 (03:27→18:59)
[2018-11-15 06:22] LABS: Calcium 8.7 MG/DL (8.5-10.1); Osmolality,Calculated 293.6 MOS/KG (273-304); Potassium 3.3 MMOL/L (3.5-5.1)
[2018-11-15 06:26] LABS: Basophils % 0.1 % (0.0-0.8); Hematocrit 30.6 VOL% (42.0-52.0); Immature Granulocytes % 0.5 %; Immature Granulocytes Absolute 0.05 #; Lymphocytes # 0.7 10*3/uL (1.4-4.0); Lymphocytes % 6.8 % (21.2-54.2); Mean Corpuscular Hemoglobin 29 PG (27-34); Mean Corpuscular Volume 86.9 FL (87-102); Mean Platelet Volume 12.1 FL (9.6-12.0); Monocytes # 0.2 10*3/uL (0.11-0.8); Monocytes % 1.8 % (1.7-12.7); Neutrophils # 9.2 10*3/uL (1.4-7.4); Neutrophils % 90.8 % (38.7-73.9); Red Cell Distribution Width 15.7 % (9.3-17.3)
[2018-11-15 06:30] LABS: Hemoglobin 10.1 GM/DL (14.0-18.0); Platelet Count 145 T/CUMM (130-400); Red Blood Count 3.52 MC/CUMM (3.8-5.5); White Blood Count 10.2 T/CUMM (4-12)
[2018-11-15 06:44] LABS: Lymphocytes 4 % (20-55); Platelet Estimate Decreased; Polychromasia Few; Segmented Neutrophils 96 % (50-85); Total Cells Counted 100
[2018-11-15] MEDS ORDERED: MAGNESIUM SULF RIDER 4 GM in PREMIX 1 EACH IV ONE (08:31)
[2018-11-15] MEDS ORDERED: POTASSIUM CHLORIDE 20 MEQ TABLET PO SCH (09:00)
[2018-11-15] MEDS: MEROPENEM 1,000 MG in SODIUM CHLORIDE 0.9% 100 ML IV SCH ×2 (09:58→20:38)
[2018-11-15] MEDS: ENOXAPARIN 40 MG/0.4 ML SYRINGE SUBCUT SCH (09:59)
[2018-11-15] MEDS: HYDROCORTISONE 10 MG TABLET PO SCH (10:51)
[2018-11-15] MEDS: DOPamine 800 MG/250 ML PREMIX IV PRN (11:22)
[2018-11-15] MEDS: POTASSIUM CHLORIDE 20 MEQ/15 ML UDCUP PER TUBE SCH ×3 (12:46→20:38)
[2018-11-15] MEDS: BENZTROPINE 1 MG TABLET PO SCH ×2 (12:46→20:38)
[2018-11-15] MEDS ORDERED: DEXTROSE 50% 25 GM/50 ML SYRINGE IV PRN (13:45)
[2018-11-15] MEDS: OXcarbazepine 300 MG TABLET PO SCH ×2 (15:29→20:38)
[2018-11-15] MEDS ORDERED: VANCOMYCIN INJ 1,000 MG in SODIUM CHLORIDE 0.9% 250 ML IV SCH (21:00)
[2018-11-16] MEDS: INSULIN LISPRO 100 UNIT/ML SUBCUT SCH ×4 (00:55→18:14)
[2018-11-16] MEDS: HYDROCORTISONE 100 MG VIAL IV SCH ×4 (02:20→20:35)
[2018-11-16] MEDS: DEXTROSE 5% NACL 0.45% 1,000 ML IV SCH ×6 (02:21→20:33)
[2018-11-16 04:10] LABS: Basophils % 0.1 % (0.0-0.8); Hematocrit 27.5 VOL% (42.0-52.0); Hemoglobin 9.2 GM/DL (14.0-18.0); Immature Granulocytes % 0.4 %; Immature Granulocytes Absolute 0.04 #; Lymphocytes # 0.4 10*3/uL (1.4-4.0); Mean Corpuscular HGB Conc 33.5 GM/DL (32-36); Mean Corpuscular Hemoglobin 29 PG (27-34); Mean Corpuscular Volume 87.6 FL (87-102); Mean Platelet Volume 12.3 FL (9.6-12.0); Monocytes # 0.3 10*3/uL (0.11-0.8); NRBC # 0.03 10*3/uL; Neutrophils # 9.5 10*3/uL (1.4-7.4); Neutrophils % 92.5 % (38.7-73.9); Platelet Count 123 T/CUMM (130-400); Red Blood Count 3.14 MC/CUMM (3.8-5.5); Red Cell Distribution Width 15.9 % (9.3-17.3); White Blood Count 10.2 T/CUMM (4-12)
[2018-11-16 04:33] LABS: Prealbumin 14.9 MG/DL (20-40)
[2018-11-16 04:52] LABS: Calcium 8.2 MG/DL (8.5-10.1); Osmolality,Calculated 285.8 MOS/KG (273-304); Potassium 3.8 MMOL/L (3.5-5.1)
[2018-11-16 04:54] LABS: Hypochromasia 1+; Lymphocytes 5 % (20-55); Nucleated Red Blood Cells 1 (0-5); Segmented Neutrophils 93 % (50-85); Total Cells Counted 100
[2018-11-16 04:55] LABS: Microcytosis 1+; Platelet Estimate Adequate; Target Cells Slight
[2018-11-16] MEDS: BENZTROPINE 1 MG TABLET PO SCH ×2 (08:02→20:34)
[2018-11-16] MEDS: ENOXAPARIN 40 MG/0.4 ML SYRINGE SUBCUT SCH (08:03)
[2018-11-16] MEDS: MEROPENEM 1,000 MG in SODIUM CHLORIDE 0.9% 100 ML IV SCH ×2 (08:10→20:34)
[2018-11-16] MEDS: OXcarbazepine 300 MG TABLET PO SCH ×2 (13:32→20:34)
[2018-11-16] MEDS: levETIRAcetam LIQUID 100 MG/ML 30 ML/BOTTLE PER TUBE SCH (20:35)
[2018-11-17] MEDS: INSULIN LISPRO 100 UNIT/ML SUBCUT SCH ×4 (00:30→17:52)
[2018-11-17] MEDS: DEXTROSE 5% NACL 0.45% 1,000 ML IV SCH ×5 (03:07→21:27)
[2018-11-17] MEDS: HYDROCORTISONE 100 MG VIAL IV SCH ×4 (03:10→21:19)
[2018-11-17 04:06] LABS: Basophils % 0.1 % (0.0-0.8); Hematocrit 26.5 VOL% (42.0-52.0); Hemoglobin 8.8 GM/DL (14.0-18.0); Immature Granulocytes % 0.5 %; Immature Granulocytes Absolute 0.05 #; Lymphocytes # 0.7 10*3/uL (1.4-4.0); Lymphocytes % 6.8 % (21.2-54.2); Mean Corpuscular HGB Conc 33.2 GM/DL (32-36); Mean Corpuscular Hemoglobin 29 PG (27-34); Mean Corpuscular Volume 87.5 FL (87-102); Mean Platelet Volume 12.7 FL (9.6-12.0); Monocytes # 0.3 10*3/uL (0.11-0.8); NRBC # 0.03 10*3/uL; Neutrophils # 8.9 10*3/uL (1.4-7.4); Neutrophils % 89.6 % (38.7-73.9); Platelet Count 62 T/CUMM (130-400); Red Blood Count 3.03 MC/CUMM (3.8-5.5); Red Cell Distribution Width 16.1 % (9.3-17.3); White Blood Count 9.9 T/CUMM (4-12)
[2018-11-17 04:18] LABS: Calcium 7.6 MG/DL (8.5-10.1); Osmolality,Calculated 282.3 MOS/KG (273-304); Potassium 2.9 MMOL/L (3.5-5.1)
[2018-11-17 05:06] LABS: Lymphocytes 10 % (20-55); Metamyelocytes 2 %; Nucleated Red Blood Cells 1 (0-5); Platelet Estimate Decreased; Segmented Neutrophils 84 % (50-85); Total Cells Counted 100
[2018-11-17 05:07] LABS: Hypochromasia 2+; Polychromasia 1+
[2018-11-17] MEDS ORDERED: MAGNESIUM SULF RIDER 4 GM in PREMIX 1 EACH IV PRN (05:19)
[2018-11-17] MEDS ORDERED: ATROPINE 1 MG/10 ML SYRINGE IV PRN (05:19)
[2018-11-17] MEDS: POTASSIUM CHLORIDE RIDER 10 MEQ in PREMIX 1 EACH IV PRN ×6 (05:34→13:58)
[2018-11-17] MEDS: MAGNESIUM SULF RIDER 2 GM in PREMIX 1 EACH IV PRN (05:34)
[2018-11-17] MEDS: MEROPENEM 1,000 MG in SODIUM CHLORIDE 0.9% 100 ML IV SCH (08:02)
[2018-11-17] MEDS: BENZTROPINE 1 MG TABLET PO SCH ×2 (08:03→21:20)
[2018-11-17] MEDS: levETIRAcetam LIQUID 100 MG/ML 30 ML/BOTTLE PER TUBE SCH ×2 (08:03→21:21)
[2018-11-17] MEDS: ENOXAPARIN 40 MG/0.4 ML SYRINGE SUBCUT SCH (08:09)
[2018-11-17] MEDS ORDERED: INFLUENZA VIRUS VACCINE 0.5 ML SYRINGE IM ONE (09:00)
[2018-11-17] MEDS ORDERED: MAGNESIUM SULF RIDER 2 GM in PREMIX 1 EACH IV ONE (09:08)
[2018-11-17] MEDS: POTASSIUM CHLORIDE 20 MEQ/15 ML UDCUP PEG SCH ×4 (09:40→21:20)
[2018-11-17] MEDS: LEVOFLOXACIN 750 MG TABLET PEG SCH (09:40)
[2018-11-17] MEDS: OXcarbazepine 300 MG TABLET PO SCH ×2 (13:33→21:21)
[2018-11-17] MEDS ORDERED: POTASSIUM PHOSPHATE 30 MMOL in SODIUM CHLORIDE 0.9% 250 ML IV ONE (15:00)
[2018-11-18] MEDS: INSULIN LISPRO 100 UNIT/ML SUBCUT SCH ×5 (00:17→23:34)
[2018-11-18] MEDS: HYDROCORTISONE 100 MG VIAL IV SCH ×4 (02:38→20:35)
[2018-11-18 04:08] LABS: Basophils % 0.2 % (0.0-0.8); Hematocrit 43.2 VOL% (42.0-52.0); Hemoglobin 14.3 GM/DL (14.0-18.0); Immature Granulocytes % 0.6 %; Immature Granulocytes Absolute 0.03 #; Lymphocytes # 0.4 10*3/uL (1.4-4.0); Lymphocytes % 7.6 % (21.2-54.2); Mean Corpuscular HGB Conc 33.1 GM/DL (32-36); Mean Corpuscular Hemoglobin 29 PG (27-34); Mean Corpuscular Volume 88.5 FL (87-102); Monocytes # 0.2 10*3/uL (0.11-0.8); Monocytes % 3.4 % (1.7-12.7); NRBC # 0.05 10*3/uL; Neutrophils # 4.2 10*3/uL (1.4-7.4); Neutrophils % 88.2 % (38.7-73.9); Red Blood Count 4.88 MC/CUMM (3.8-5.5); Red Cell Distribution Width 16.7 % (9.3-17.3); White Blood Count 4.7 T/CUMM (4-12)
[2018-11-18 04:09] LABS: Platelet Count 57 T/CUMM (130-400)
[2018-11-18 04:12] LABS: Calcium 7.2 MG/DL (8.5-10.1); Osmolality,Calculated 281.3 MOS/KG (273-304); Potassium 3.6 MMOL/L (3.5-5.1)
[2018-11-18] MEDS: DEXTROSE 5% NACL 0.45% 1,000 ML IV SCH ×4 (05:29→17:30)
[2018-11-18] MEDS: POTASSIUM CHLORIDE RIDER 10 MEQ in PREMIX 1 EACH IV PRN ×2 (05:40→06:44)
[2018-11-18] MEDS: ENOXAPARIN 40 MG/0.4 ML SYRINGE SUBCUT SCH (08:02)
[2018-11-18] MEDS: LEVOFLOXACIN 750 MG TABLET PEG SCH (08:02)
[2018-11-18] MEDS: BENZTROPINE 1 MG TABLET PO SCH ×2 (08:03→20:37)
[2018-11-18] MEDS: levETIRAcetam LIQUID 100 MG/ML 30 ML/BOTTLE PER TUBE SCH ×2 (08:03→20:37)
[2018-11-18] MEDS: OXcarbazepine 300 MG TABLET PO SCH ×2 (15:23→20:37)
[2018-11-19 05:11] LABS: Basophils % 0.2 % (0.0-0.8); Hematocrit 25.9 VOL% (42.0-52.0); Hemoglobin 8.8 GM/DL (14.0-18.0); Immature Granulocytes % 0.9 %; Immature Granulocytes Absolute 0.05 #; Lymphocytes # 0.7 10*3/uL (1.4-4.0); Lymphocytes % 12.9 % (21.2-54.2); Mean Corpuscular Hemoglobin 29 PG (27-34); Mean Corpuscular Volume 86.3 FL (87-102); Mean Platelet Volume 11.9 FL (9.6-12.0); Monocytes # 0.4 10*3/uL (0.11-0.8); Monocytes % 7.4 % (1.7-12.7); NRBC # 0.02 10*3/uL; Neutrophils # 4.3 10*3/uL (1.4-7.4); Neutrophils % 78.6 % (38.7-73.9); Red Cell Distribution Width 15.7 % (9.3-17.3); White Blood Count 5.4 T/CUMM (4-12)
[2018-11-19 05:12] LABS: Platelet Count 87 T/CUMM (130-400)
[2018-11-19 05:36] LABS: Hypochromasia 1+; Platelet Estimate Decreased; Target Cells Few
[2018-11-19 05:40] LABS: Albumin 1.9 G/DL (3.4-5.0); Bilirubin,Total 0.5 MG/DL (0.2-1.0); Calcium 7.3 MG/DL (8.5-10.1); Osmolality,Calculated 276.7 MOS/KG (273-304); Potassium 3.1 MMOL/L (3.5-5.1); Total Protein 5.4 G/DL (6.4-8.3)
[2018-11-19 05:41] LABS: Prealbumin 24.2 MG/DL (20-40)
[2018-11-19] MEDS: INSULIN LISPRO 100 UNIT/ML SUBCUT SCH ×3 (05:58→18:14)
[2018-11-19] MEDS: DEXTROSE 5% NACL 0.45% 1,000 ML IV SCH ×2 (05:58→10:47)
[2018-11-19] MEDS: POTASSIUM CHLORIDE RIDER 10 MEQ in PREMIX 1 EACH IV PRN ×4 (07:21→10:47)
[2018-11-19] MEDS: BENZTROPINE 1 MG TABLET PO SCH ×2 (09:11→22:57)
[2018-11-19] MEDS: MAGNESIUM SULF RIDER 2 GM in PREMIX 1 EACH IV PRN (09:12)
[2018-11-19] MEDS: HYDROCORTISONE 100 MG VIAL IV SCH (09:12)
[2018-11-19] MEDS: LEVOFLOXACIN 750 MG TABLET PEG SCH (09:12)
[2018-11-19] MEDS: levETIRAcetam LIQUID 100 MG/ML 30 ML/BOTTLE PER TUBE SCH ×2 (11:07→22:58)
[2018-11-19] MEDS: ENOXAPARIN 40 MG/0.4 ML SYRINGE SUBCUT SCH (11:07)
[2018-11-19] MEDS ORDERED: POTASSIUM CHLORIDE 20 MEQ/15 ML UDCUP PER TUBE PRN (14:38)
[2018-11-19] MEDS: OXcarbazepine 300 MG TABLET PO SCH ×2 (14:51→22:57)
[2018-11-19] MEDS: POTASSIUM PHOS/SOD PHOS POWDER 250 MG PACK NG SCH ×2 (14:51→22:57)
[2018-11-19] MEDS: HYDROCORTISONE 10 MG TABLET PO SCH (23:02)
[2018-11-20] MEDS: INSULIN LISPRO 100 UNIT/ML SUBCUT SCH ×4 (00:16→19:17)
[2018-11-20] MEDS: DEXTROSE 5% NACL 0.45% 1,000 ML IV SCH (04:11)
[2018-11-20 04:25] LABS: Basophils % 0.2 % (0.0-0.8); Eosinophils % 0.4 % (0.00-10.9); Hematocrit 25.9 VOL% (42.0-52.0); Hemoglobin 8.8 GM/DL (14.0-18.0); Immature Granulocytes % 1.6 %; Immature Granulocytes Absolute 0.09 #; Lymphocytes # 0.8 10*3/uL (1.4-4.0); Lymphocytes % 13.7 % (21.2-54.2); Mean Corpuscular Hemoglobin 29 PG (27-34); Mean Platelet Volume 12.2 FL (9.6-12.0); Monocytes # 0.3 10*3/uL (0.11-0.8); Monocytes % 5.1 % (1.7-12.7); Neutrophils # 4.3 10*3/uL (1.4-7.4); Red Blood Count 3.01 MC/CUMM (3.8-5.5); Red Cell Distribution Width 15.8 % (9.3-17.3); White Blood Count 5.5 T/CUMM (4-12)
[2018-11-20 04:36] LABS: Platelet Count 77 T/CUMM (130-400)
[2018-11-20 04:44] LABS: Calcium 7.2 MG/DL (8.5-10.1); Osmolality,Calculated 282.4 MOS/KG (273-304)
[2018-11-20 04:49] LABS: Hypochromasia 1+; Ovalocytes Slight; Platelet Estimate Decreased
[2018-11-20] MEDS: amLODIPine 10 MG TABLET PO SCH (09:38)
[2018-11-20] MEDS: HYDROCORTISONE 10 MG TABLET PO SCH ×2 (09:38→21:28)
[2018-11-20] MEDS: BENZTROPINE 1 MG TABLET PO SCH ×2 (09:38→21:28)
[2018-11-20] MEDS: levETIRAcetam LIQUID 100 MG/ML 30 ML/BOTTLE PER TUBE SCH ×2 (09:39→21:29)
[2018-11-20] MEDS ORDERED: [UNRECOGNIZED DRUG - OTHER] IV ONE (10:00)
[2018-11-20] MEDS ORDERED: POTASSIUM CHLORIDE IV ONE (10:00)
[2018-11-20] MEDS ORDERED: POTASSIUM PHOSPHATE IV ONE (10:00)
[2018-11-20] MEDS ORDERED: MAGNESIUM SULF IV ONE (10:00)
[2018-11-20] MEDS: OXcarbazepine 300 MG TABLET PO SCH ×2 (14:38→21:28)
[2018-11-21] MEDS: LORazepam 2 MG/1 ML VIAL IV PRN (00:31)
[2018-11-21] MEDS: INSULIN LISPRO 100 UNIT/ML SUBCUT SCH ×4 (04:42→17:45)
[2018-11-21 05:08] LABS: Calcium 7.4 MG/DL (8.5-10.1); Osmolality,Calculated 283.4 MOS/KG (273-304)
[2018-11-21] MEDS: DEXTROSE 5% NACL 0.45% 1,000 ML IV SCH (07:04)
[2018-11-21] MEDS ORDERED: POTASSIUM PHOSPHATE IV ONE (08:00)
[2018-11-21] MEDS ORDERED: POTASSIUM CHLORIDE IV ONE (08:00)
[2018-11-21] MEDS ORDERED: MAGNESIUM SULF IV ONE (08:00)
[2018-11-21] MEDS ORDERED: [UNRECOGNIZED DRUG - OTHER] IV ONE (08:00)
[2018-11-21] MEDS: HYDROCORTISONE 10 MG TABLET PO SCH ×2 (10:50→21:45)
[2018-11-21] MEDS: BENZTROPINE 1 MG TABLET PO SCH ×2 (10:51→21:45)
[2018-11-21] MEDS: amLODIPine 10 MG TABLET PO SCH (10:51)
[2018-11-21] MEDS: levETIRAcetam LIQUID 100 MG/ML 30 ML/BOTTLE PER TUBE SCH ×2 (10:52→21:47)
[2018-11-21] MEDS: OXcarbazepine 300 MG TABLET PO SCH ×2 (14:42→21:46)
[2018-11-22] MEDS: INSULIN LISPRO 100 UNIT/ML SUBCUT SCH ×4 (00:09→17:25)
[2018-11-22] MEDS: DEXTROSE 5% NACL 0.45% 1,000 ML IV SCH (05:36)
[2018-11-22 07:22] LABS: Calcium 7.8 MG/DL (8.5-10.1); Osmolality,Calculated 282.4 MOS/KG (273-304)
[2018-11-22] MEDS ORDERED: SODIUM PHOSPHATE IV ONE (09:00)
[2018-11-22] MEDS ORDERED: SODIUM CHLORIDE 0.9% IV ONE (09:00)
[2018-11-22] MEDS: BENZTROPINE 1 MG TABLET PO SCH ×2 (09:22→21:19)
[2018-11-22] MEDS: amLODIPine 10 MG TABLET PO SCH (09:22)
[2018-11-22] MEDS: levETIRAcetam LIQUID 100 MG/ML 30 ML/BOTTLE PER TUBE SCH ×2 (09:23→21:19)
[2018-11-22] MEDS: HYDROCORTISONE 10 MG TABLET PO SCH ×2 (09:24→21:18)
[2018-11-22] MEDS: OXcarbazepine 300 MG TABLET PO SCH ×2 (13:03→21:19)
[2018-11-23] MEDS: INSULIN LISPRO 100 UNIT/ML SUBCUT SCH ×4 (00:35→18:10)
[2018-11-23] MEDS: DEXTROSE 5% NACL 0.45% 1,000 ML IV SCH ×2 (05:20→23:29)
[2018-11-23 05:46] LABS: Calcium 7.5 MG/DL (8.5-10.1); Calcium 7.6 MG/DL (8.5-10.1); Osmolality,Calculated 280.5 MOS/KG (273-304); Osmolality,Calculated 281.4 MOS/KG (273-304); Potassium 2.7 MMOL/L (3.5-5.1)
[2018-11-23] MEDS ORDERED: MAGNESIUM SULF IV ONE (08:00)
[2018-11-23] MEDS ORDERED: POTASSIUM PHOSPHATE IV ONE (08:00)
[2018-11-23] MEDS ORDERED: [UNRECOGNIZED DRUG - OTHER] IV ONE (08:00)
[2018-11-23] MEDS: amLODIPine 10 MG TABLET PO SCH (12:42)
[2018-11-23] MEDS: BENZTROPINE 1 MG TABLET PO SCH ×2 (12:42→21:11)
[2018-11-23] MEDS: levETIRAcetam LIQUID 100 MG/ML 30 ML/BOTTLE PER TUBE SCH ×2 (12:43→21:11)
[2018-11-23] MEDS: HYDROCORTISONE 10 MG TABLET PO SCH ×2 (12:44→21:11)
[2018-11-23] MEDS: OXcarbazepine 300 MG TABLET PO SCH ×2 (15:47→21:11)
[2018-11-24] MEDS: INSULIN LISPRO 100 UNIT/ML SUBCUT SCH ×4 (01:18→19:17)
[2018-11-24 05:52] LABS: Calcium 7.5 MG/DL (8.5-10.1); Osmolality,Calculated 283.3 MOS/KG (273-304); Potassium 3.1 MMOL/L (3.5-5.1)
[2018-11-24] MEDS: BENZTROPINE 1 MG TABLET PO SCH ×2 (08:31→22:07)
[2018-11-24] MEDS: HYDROCORTISONE 10 MG TABLET PO SCH ×2 (08:31→22:08)
[2018-11-24] MEDS: levETIRAcetam LIQUID 100 MG/ML 30 ML/BOTTLE PER TUBE SCH ×2 (08:32→22:10)
[2018-11-24] MEDS: amLODIPine 10 MG TABLET PO SCH (08:32)
[2018-11-24] MEDS ORDERED: POTASSIUM CHLORIDE 20 MEQ TABLET PO PRN (09:47)
[2018-11-24] MEDS ORDERED: SODIUM PHOSPHATE ENEMA 133 ML BOTTLE RECTAL ONE (14:57)
[2018-11-24] MEDS: OXcarbazepine 300 MG TABLET PO SCH ×2 (16:00→22:07)
[2018-11-24] MEDS ORDERED: LACTULOSE 20 GM/30 ML UDCUP PO ONE (16:08)
[2018-11-25] MEDS: INSULIN LISPRO 100 UNIT/ML SUBCUT SCH ×4 (01:33→19:09)
[2018-11-25] MEDS: DEXTROSE 5% NACL 0.45% 1,000 ML IV SCH ×3 (04:49→22:17)
[2018-11-25] MEDS ORDERED: BISACODYL 10 MG SUPP RECTAL ONE (09:03)
[2018-11-25] MEDS ORDERED: SODIUM PHOSPHATE ENEMA 133 ML BOTTLE RECTAL ONE (09:03)
[2018-11-25] MEDS: BENZTROPINE 1 MG TABLET PO SCH ×2 (11:20→22:15)
[2018-11-25] MEDS: amLODIPine 10 MG TABLET PO SCH (11:20)
[2018-11-25] MEDS: HYDROCORTISONE 10 MG TABLET PO SCH ×2 (11:20→22:14)
[2018-11-25] MEDS: levETIRAcetam LIQUID 100 MG/ML 30 ML/BOTTLE PER TUBE SCH ×2 (11:21→22:15)
[2018-11-25] MEDS: OXcarbazepine 300 MG TABLET PO SCH ×2 (17:16→22:15)
[2018-11-26] MEDS: DEXTROSE 5% NACL 0.45% 1,000 ML IV SCH (00:42)
[2018-11-26] MEDS: INSULIN LISPRO 100 UNIT/ML SUBCUT SCH ×4 (01:08→17:53)
[2018-11-26 06:41] LABS: Basophils % 0.1 % (0.0-0.8); Eosinophils % 0.1 % (0.00-10.9); Hematocrit 26.6 VOL% (42.0-52.0); Hemoglobin 8.7 GM/DL (14.0-18.0); Immature Granulocytes Absolute 0.09 #; Lymphocytes # 0.8 10*3/uL (1.4-4.0); Lymphocytes % 9.2 % (21.2-54.2); Mean Corpuscular HGB Conc 32.7 GM/DL (32-36); Mean Corpuscular Hemoglobin 29 PG (27-34); Mean Corpuscular Volume 89.6 FL (87-102); Mean Platelet Volume 10.7 FL (9.6-12.0); Monocytes # 0.4 10*3/uL (0.11-0.8); Monocytes % 4.9 % (1.7-12.7); NRBC # 0.02 10*3/uL; Neutrophils # 7.6 10*3/uL (1.4-7.4); Neutrophils % 84.7 % (38.7-73.9); Platelet Count 255 T/CUMM (130-400); Red Blood Count 2.97 MC/CUMM (3.8-5.5); Red Cell Distribution Width 16.8 % (9.3-17.3)
[2018-11-26 07:19] LABS: Calcium 7.1 MG/DL (8.5-10.1); Osmolality,Calculated 280.4 MOS/KG (273-304); Prealbumin 23.3 MG/DL (20-40)
[2018-11-26 07:31] LABS: Potassium 2.5 MMOL/L (3.5-5.1)
[2018-11-26] MEDS ORDERED: POTASSIUM CHLORIDE 20 MEQ/15 ML UDCUP PO SCH (09:00)
[2018-11-26] MEDS: amLODIPine 10 MG TABLET PO SCH (09:14)
[2018-11-26] MEDS: levETIRAcetam LIQUID 100 MG/ML 30 ML/BOTTLE PER TUBE SCH ×2 (09:14→22:53)
[2018-11-26] MEDS: BENZTROPINE 1 MG TABLET PO SCH ×2 (09:14→22:53)
[2018-11-26] MEDS: HYDROCORTISONE 10 MG TABLET PO SCH (09:15)
[2018-11-26] MEDS ORDERED: POTASSIUM CHLORIDE IV ONE (09:30)
[2018-11-26] MEDS ORDERED: MAGNESIUM SULF IV ONE (09:30)
[2018-11-26] MEDS ORDERED: POTASSIUM PHOSPHATE IV ONE (09:30)
[2018-11-26] MEDS ORDERED: [UNRECOGNIZED DRUG - OTHER] IV ONE (09:30)
[2018-11-26] MEDS: OXcarbazepine 300 MG TABLET PO SCH ×2 (13:40→22:54)
[2018-11-26] MEDS ORDERED: HYDROCORTISONE 10 MG TABLET PO SCH (13:50)
[2018-11-26 17:13] LABS: Osmolality,Calculated 280.4 MOS/KG (273-304)
[2018-11-27] MEDS: INSULIN LISPRO 100 UNIT/ML SUBCUT SCH ×4 (00:37→18:05)
[2018-11-27 04:27] LABS: Eosinophils % 0.5 % (0.00-10.9); Hematocrit 29.5 VOL% (42.0-52.0); Hemoglobin 9.6 GM/DL (14.0-18.0); Immature Granulocytes % 1.3 %; Immature Granulocytes Absolute 0.11 #; Lymphocytes # 0.8 10*3/uL (1.4-4.0); Lymphocytes % 9.8 % (21.2-54.2); Mean Corpuscular HGB Conc 32.5 GM/DL (32-36); Mean Corpuscular Hemoglobin 29 PG (27-34); Mean Corpuscular Volume 89.9 FL (87-102); Mean Platelet Volume 11.1 FL (9.6-12.0); Monocytes # 0.5 10*3/uL (0.11-0.8); Monocytes % 5.6 % (1.7-12.7); NRBC # 0.02 10*3/uL; Neutrophils % 82.8 % (38.7-73.9); Platelet Count 256 T/CUMM (130-400); Red Blood Count 3.28 MC/CUMM (3.8-5.5); Red Cell Distribution Width 16.9 % (9.3-17.3); White Blood Count 8.4 T/CUMM (4-12)
[2018-11-27 04:41] LABS: INR 0.9
[2018-11-27] MEDS ORDERED: POTASSIUM CHLORIDE RIDER 10 MEQ in PREMIX 1 EACH IV PRN (05:41)
[2018-11-27] MEDS ORDERED: POTASSIUM CHLORIDE INJ 50 MEQ in SODIUM CHLORIDE 0.9% 500 ML IV ONE (07:00)
[2018-11-27] MEDS ORDERED: ceFAZolin 1,000 MG VIAL ONE (08:48)
[2018-11-27] MEDS ORDERED: ceFAZolin 1,000 MG in SYRINGE 1 EACH IV ONE ×2 (09:30→12:00)
[2018-11-27] MEDS ORDERED: PROPOFOL 200 MG/20 ML VIAL IV ONE ×2 (10:00→14:23)
[2018-11-27] MEDS ORDERED: LIDOCAINE 2% 5 ML VIAL ONE (10:00)
[2018-11-27] MEDS ORDERED: DEXTROSE 50% 25 GM/50 ML VIAL IV ONE (12:09)
[2018-11-27] MEDS: DEXTROSE 50% 25 GM/50 ML VIAL IV PRN ×3 (12:12→20:53)
[2018-11-27] MEDS ORDERED: POTASSIUM CHLORIDE RIDER 10 MEQ in PREMIX 1 EACH IV SCH (12:30)
[2018-11-27] MEDS ORDERED: ePHEDrine 50 MG/ML AMP ONE (14:23)
[2018-11-27] MEDS ORDERED: fentaNYL 100 MCG/2 ML VIAL ONE (14:24)
[2018-11-27] MEDS ORDERED: PHENYLEPHRINE 1 MG/10 ML SYRINGE IV ONE (14:24)
[2018-11-27] MEDS ORDERED: SEVOFLURANE 1 UNIT/15 MINUTE INH ONE (14:24)
[2018-11-27] MEDS ORDERED: MAGNESIUM OXIDE 400 MG TABLET PEG SCH (15:00)
[2018-11-27] MEDS ORDERED: POTASSIUM PHOS/SOD PHOS POWDER 250 MG PACK PEG SCH (15:00)
[2018-11-27] MEDS: OXcarbazepine 300 MG TABLET PO SCH ×2 (15:02→22:48)
[2018-11-27] MEDS: HYDROCORTISONE 10 MG TABLET PO SCH ×2 (15:02→22:48)
[2018-11-27] MEDS: BENZTROPINE 1 MG TABLET PO SCH ×2 (15:02→22:47)
[2018-11-27] MEDS: amLODIPine 10 MG TABLET PO SCH (15:02)
[2018-11-27] MEDS: levETIRAcetam LIQUID 100 MG/ML 30 ML/BOTTLE PER TUBE SCH ×2 (15:02→22:48)
[2018-11-27] MEDS ORDERED: POTASSIUM PHOSPHATE IV ONE (15:30)
[2018-11-27] MEDS ORDERED: [UNRECOGNIZED DRUG - OTHER] IV ONE (15:30)
[2018-11-27] MEDS ORDERED: MAGNESIUM SULF IV ONE (15:30)
[2018-11-27] MEDS ORDERED: POTASSIUM CHLORIDE IV ONE (15:30)
[2018-11-27] MEDS: DEXTROSE 5% NACL 0.45% 1,000 ML IV SCH (18:06)
[2018-11-28] MEDS: INSULIN LISPRO 100 UNIT/ML SUBCUT SCH ×3 (00:30→12:03)
[2018-11-28] MEDS: DEXTROSE 50% 25 GM/50 ML VIAL IV PRN (00:39)
[2018-11-28] MEDS: DEXTROSE 5% NACL 0.45% 1,000 ML IV SCH (06:54)
[2018-11-28] MEDS: BENZTROPINE 1 MG TABLET PO SCH (09:35)
[2018-11-28] MEDS: levETIRAcetam LIQUID 100 MG/ML 30 ML/BOTTLE PER TUBE SCH (09:36)
[2018-11-28] MEDS: amLODIPine 10 MG TABLET PO SCH (09:36)
[2018-11-28] MEDS: HYDROCORTISONE 10 MG TABLET PO SCH (09:36)
[2018-11-28 09:39] LABS: Calcium 8.1 MG/DL (8.5-10.1); Osmolality,Calculated 284.1 MOS/KG (273-304); Potassium 3.9 MMOL/L (3.5-5.1)
[2018-11-28 09:41] LABS: Basophils % 0.1 % (0.0-0.8); Hematocrit 28.3 VOL% (42.0-52.0); Hemoglobin 9.1 GM/DL (14.0-18.0); Immature Granulocytes % 0.8 %; Immature Granulocytes Absolute 0.09 #; Lymphocytes # 0.7 10*3/uL (1.4-4.0); Lymphocytes % 5.7 % (21.2-54.2); Mean Corpuscular HGB Conc 32.2 GM/DL (32-36); Mean Corpuscular Hemoglobin 29 PG (27-34); Mean Corpuscular Volume 90.4 FL (87-102); Mean Platelet Volume 10.1 FL (9.6-12.0); Monocytes # 0.3 10*3/uL (0.11-0.8); Neutrophils # 10.4 10*3/uL (1.4-7.4); Neutrophils % 90.4 % (38.7-73.9); Platelet Count 276 T/CUMM (130-400); Red Blood Count 3.13 MC/CUMM (3.8-5.5); Red Cell Distribution Width 18.1 % (9.3-17.3); White Blood Count 11.5 T/CUMM (4-12)
[2018-11-28 10:14] LABS: Band Neutrophils 3 % (0-10); Hypochromasia 1+; Lymphocytes 5 % (20-55); Platelet Estimate Adequate; Segmented Neutrophils 91 % (50-85); Total Cells Counted 100
[2018-11-28 11:50] VITALS: BP 114/93
[2018-11-28] MEDS: OXcarbazepine 300 MG TABLET PO SCH (14:17)
[2018-11-29] MEDS ORDERED: HYDROCORTISONE 10 MG TABLET PO SCH (09:00)
== END 2018-11-28 14:36 | DRG 643 ==
LOC: EDUNIT# → EDBD → N.ED 21:16 → SUATTDRO 11-14 02:04 → N.EDINP 11-14 02:04 → N.CC 11-14 03:00 → N.2E 11-19 15:23
PROVIDERS: ADMIT Internal Medicine; ATTEND Internal Medicine

== ENCOUNTER 2018-12-01 00:34 | Inpatient (IN) ==
[2018-12-01] MEDS ORDERED: SODIUM CHLORIDE 0.9% 1,750 ML IV ONE (01:29)
[2018-12-01 01:58] LABS: Eosinophils % 0.5 % (0.00-10.9); Hematocrit 25.1 VOL% (42.0-52.0); Hemoglobin 8.2 GM/DL (14.0-18.0); Immature Granulocytes % 0.8 %; Immature Granulocytes Absolute 0.05 #; Lymphocytes # 1.2 10*3/uL (1.4-4.0); Lymphocytes % 19.8 % (21.2-54.2); Mean Corpuscular HGB Conc 32.7 GM/DL (32-36); Mean Corpuscular Hemoglobin 29 PG (27-34); Mean Corpuscular Volume 89.3 FL (87-102); Mean Platelet Volume 9.7 FL (9.6-12.0); Monocytes # 0.5 10*3/uL (0.11-0.8); Monocytes % 8.1 % (1.7-12.7); Neutrophils # 4.4 10*3/uL (1.4-7.4); Neutrophils % 70.8 % (38.7-73.9); Platelet Count 200 T/CUMM (130-400); Red Blood Count 2.81 MC/CUMM (3.8-5.5); Red Cell Distribution Width 17.6 % (9.3-17.3); White Blood Count 6.2 T/CUMM (4-12)
[2018-12-01 02:18] LABS: Albumin 2.2 G/DL (3.4-5.0); Bilirubin,Total 0.6 MG/DL (0.2-1.0); Calcium 7.7 MG/DL (8.5-10.1); Osmolality,Calculated 281.4 MOS/KG (273-304); Potassium 3.8 MMOL/L (3.5-5.1)
[2018-12-01 02:27] LABS: Apearance,Urine Slightly Hazy (Clear); Bilirubin,Urine Negative (Negative); Blood, Urine Negative (Negative); Glucose,Urine (UA) Negative (Negative); Ketones,Urine Negative (Negative); Nitrite,Urine Negative (Negative); Protein,Urine Negative; RBC,Urine 1 /HPF (0-4); Renal Epithelial Cells,Urine Occasional /HPF (<1); Urine Color Yellow (Yellow); Urine Specific Gravity 1.013 (1.001-1.035); WBC,Urine 2 /HPF (0-6)
[2018-12-01] MEDS ORDERED: LEVOFLOXACIN INJ 500 MG in PREMIX 1 EACH IV STA (04:14)
[2018-12-01] MEDS ORDERED: GLUCAGON 1 MG VIAL IM PRN (06:10)
[2018-12-01] MEDS ORDERED: DEXTROSE 50% 25 GM/50 ML SYRINGE IV PRN (06:10)
[2018-12-01] MEDS ORDERED: SODIUM CHLORIDE 0.9% 1,000 ML IV SCH (06:10)
[2018-12-01] MEDS ORDERED: ACETAMINOPHEN 325 MG TABLET PEG PRN (06:10)
[2018-12-01] MEDS: HYDROCORTISONE 100 MG VIAL IV SCH ×3 (07:35→22:02)
[2018-12-01] MEDS: INSULIN LISPRO 100 UNIT/ML SUBCUT SCH ×5 (07:35→22:01)
[2018-12-01] MEDS: HEPARIN 5,000 UNIT/1 ML VIAL SUBCUT SCH ×3 (07:35→22:06)
[2018-12-01] MEDS: FAMOTIDINE 8 MG/ML 50 ML/BOTTLE PEG SCH ×2 (10:33→22:06)
[2018-12-01] MEDS: PIPERACILLIN/TAZOBACTAM 3,375 MG in SODIUM CHLORIDE 0.9% 100 ML IV SCH ×2 (10:34→18:36)
[2018-12-01] MEDS: levETIRAcetam LIQUID 100 MG/ML 30 ML/BOTTLE PER TUBE SCH ×2 (10:34→22:06)
[2018-12-01] MEDS: MAGNESIUM OXIDE 400 MG TABLET PEG SCH ×3 (10:34→21:59)
[2018-12-01] MEDS: POTASSIUM PHOS/SOD PHOS POWDER 250 MG PACK PO SCH ×3 (10:34→22:00)
[2018-12-01] MEDS: VANCOMYCIN INJ 1,000 MG in SODIUM CHLORIDE 0.9% 250 ML IV SCH ×2 (16:24→23:56)
[2018-12-01] MEDS: OXcarbazepine 300 MG TABLET PO SCH ×2 (16:24→22:00)
[2018-12-02] MEDS: PIPERACILLIN/TAZOBACTAM 3,375 MG in SODIUM CHLORIDE 0.9% 100 ML IV SCH ×3 (01:55→18:11)
[2018-12-02] MEDS: INSULIN LISPRO 100 UNIT/ML SUBCUT SCH ×6 (01:55→23:15)
[2018-12-02] MEDS: HEPARIN 5,000 UNIT/1 ML VIAL SUBCUT SCH ×2 (05:33→17:57)
[2018-12-02] MEDS: HYDROCORTISONE 100 MG VIAL IV SCH ×2 (05:37→18:12)
[2018-12-02 05:52] LABS: Basophils % 0.1 % (0.0-0.8); Hematocrit 23.3 VOL% (42.0-52.0); Hemoglobin 7.6 GM/DL (14.0-18.0); Immature Granulocytes % 0.6 %; Immature Granulocytes Absolute 0.05 #; Lymphocytes # 0.6 10*3/uL (1.4-4.0); Lymphocytes % 7.6 % (21.2-54.2); Mean Corpuscular HGB Conc 32.6 GM/DL (32-36); Mean Corpuscular Hemoglobin 29 PG (27-34); Mean Corpuscular Volume 88.6 FL (87-102); Mean Platelet Volume 10.2 FL (9.6-12.0); Monocytes # 0.5 10*3/uL (0.11-0.8); Monocytes % 5.8 % (1.7-12.7); Neutrophils # 7.2 10*3/uL (1.4-7.4); Neutrophils % 85.9 % (38.7-73.9); Platelet Count 189 T/CUMM (130-400); Red Blood Count 2.63 MC/CUMM (3.8-5.5); Red Cell Distribution Width 16.8 % (9.3-17.3); White Blood Count 8.4 T/CUMM (4-12)
[2018-12-02 06:06] LABS: Albumin 1.8 G/DL (3.4-5.0); Bilirubin,Total 0.5 MG/DL (0.2-1.0); Osmolality,Calculated 285.1 MOS/KG (273-304); Potassium 2.9 MMOL/L (3.5-5.1); Total Protein 6.2 G/DL (6.4-8.3)
[2018-12-02 06:24] LABS: Band Neutrophils 3 % (0-10); Lymphocytes 8 % (20-55); Segmented Neutrophils 83 % (50-85); Total Cells Counted 100
[2018-12-02 06:25] LABS: Hypochromasia 1+; Platelet Estimate Normal; Target Cells Few
[2018-12-02] MEDS: FAMOTIDINE 8 MG/ML 50 ML/BOTTLE PEG SCH ×2 (11:22→21:30)
[2018-12-02] MEDS: MAGNESIUM OXIDE 400 MG TABLET PEG SCH ×3 (11:22→21:30)
[2018-12-02] MEDS: levETIRAcetam LIQUID 100 MG/ML 30 ML/BOTTLE PER TUBE SCH (11:22)
[2018-12-02] MEDS: POTASSIUM PHOS/SOD PHOS POWDER 250 MG PACK PO SCH ×3 (11:22→21:30)
[2018-12-02] MEDS ORDERED: SODIUM CHLORIDE 0.9% 1,000 ML IV PRN (11:50)
[2018-12-02] MEDS ORDERED: MAGNESIUM SULF RIDER 4 GM in PREMIX 1 EACH IV PRN (11:50)
[2018-12-02] MEDS ORDERED: MAGNESIUM SULF RIDER 2 GM in PREMIX 1 EACH IV PRN (11:50)
[2018-12-02] MEDS: SODIUM CHLOR 0.9% KCL 20 MEQ 20 MEQ/1,000 ML BAG IV SCH (15:29)
[2018-12-02] MEDS: VANCOMYCIN INJ 1,000 MG in SODIUM CHLORIDE 0.9% 250 ML IV SCH (15:30)
[2018-12-02] MEDS: OXcarbazepine 300 MG TABLET PO SCH ×2 (17:50→21:30)
[2018-12-03] MEDS: HEPARIN 5,000 UNIT/1 ML VIAL SUBCUT SCH ×4 (00:14→22:35)
[2018-12-03] MEDS: VANCOMYCIN INJ 1,000 MG in SODIUM CHLORIDE 0.9% 250 ML IV SCH (00:17)
[2018-12-03] MEDS: levETIRAcetam LIQUID 100 MG/ML 30 ML/BOTTLE PER TUBE SCH ×3 (00:17→22:07)
[2018-12-03] MEDS: INSULIN LISPRO 100 UNIT/ML SUBCUT SCH ×6 (03:11→22:25)
[2018-12-03] MEDS: PIPERACILLIN/TAZOBACTAM 3,375 MG in SODIUM CHLORIDE 0.9% 100 ML IV SCH (03:54)
[2018-12-03 05:08] LABS: Basophils % 0.2 % (0.0-0.8); Eosinophils # 0.1 10*3/uL (0.0-0.87); Eosinophils % 1.1 % (0.00-10.9); Hematocrit 26.2 VOL% (42.0-52.0); Hemoglobin 8.7 GM/DL (14.0-18.0); Immature Granulocytes % 0.7 %; Immature Granulocytes Absolute 0.06 #; Lymphocytes # 1.8 10*3/uL (1.4-4.0); Lymphocytes % 20.5 % (21.2-54.2); Mean Corpuscular HGB Conc 33.2 GM/DL (32-36); Mean Corpuscular Hemoglobin 30 PG (27-34); Mean Corpuscular Volume 88.8 FL (87-102); Mean Platelet Volume 10.6 FL (9.6-12.0); Monocytes # 0.6 10*3/uL (0.11-0.8); Monocytes % 6.7 % (1.7-12.7); Neutrophils # 6.2 10*3/uL (1.4-7.4); Neutrophils % 70.8 % (38.7-73.9); Platelet Count 182 T/CUMM (130-400); Red Blood Count 2.95 MC/CUMM (3.8-5.5); Red Cell Distribution Width 15.7 % (9.3-17.3); White Blood Count 8.8 T/CUMM (4-12)
[2018-12-03 05:47] LABS: Calcium 7.2 MG/DL (8.5-10.1); Osmolality,Calculated 279.3 MOS/KG (273-304); Potassium 3.2 MMOL/L (3.5-5.1); Prealbumin 12.3 MG/DL (20-40)
[2018-12-03] MEDS: SODIUM CHLOR 0.9% KCL 20 MEQ 20 MEQ/1,000 ML BAG IV SCH (07:30)
[2018-12-03] MEDS: HYDROCORTISONE 100 MG VIAL IV SCH (07:39)
[2018-12-03] MEDS ORDERED: POTASSIUM CHLORIDE RIDER 10 MEQ in PREMIX 1 EACH IV PRN (08:40)
[2018-12-03] MEDS: FAMOTIDINE 8 MG/ML 50 ML/BOTTLE PEG SCH ×2 (10:14→22:13)
[2018-12-03] MEDS: MAGNESIUM OXIDE 400 MG TABLET PEG SCH ×3 (10:14→22:08)
[2018-12-03] MEDS: POTASSIUM PHOS/SOD PHOS POWDER 250 MG PACK PO SCH ×3 (10:14→22:08)
[2018-12-03] MEDS ORDERED: POTASSIUM PHOSPHATE IV ONE (11:00)
[2018-12-03] MEDS ORDERED: [UNRECOGNIZED DRUG - OTHER] IV ONE (11:00)
[2018-12-03] MEDS ORDERED: POTASSIUM CHLORIDE IV ONE (11:00)
[2018-12-03] MEDS ORDERED: MAGNESIUM SULF IV ONE (11:00)
[2018-12-03] MEDS ORDERED: INFLUENZA VIRUS VACCINE 0.5 ML SYRINGE IM ONE (14:17)
[2018-12-03] MEDS: OXcarbazepine 300 MG TABLET PO SCH ×2 (16:21→22:08)
[2018-12-03] MEDS: HYDROCORTISONE 10 MG TABLET PER TUBE SCH (22:08)
[2018-12-04] MEDS: SODIUM CHLOR 0.9% KCL 20 MEQ 20 MEQ/1,000 ML BAG IV SCH (01:04)
[2018-12-04] MEDS: INSULIN LISPRO 100 UNIT/ML SUBCUT SCH ×3 (02:23→09:50)
[2018-12-04] MEDS: HEPARIN 5,000 UNIT/1 ML VIAL SUBCUT SCH (06:18)
[2018-12-04] MEDS: FAMOTIDINE 8 MG/ML 50 ML/BOTTLE PEG SCH (09:49)
[2018-12-04] MEDS: MAGNESIUM OXIDE 400 MG TABLET PEG SCH (09:50)
[2018-12-04] MEDS: levETIRAcetam LIQUID 100 MG/ML 30 ML/BOTTLE PER TUBE SCH (09:50)
[2018-12-04] MEDS: POTASSIUM PHOS/SOD PHOS POWDER 250 MG PACK PO SCH (09:50)
[2018-12-04] MEDS: HYDROCORTISONE 10 MG TABLET PER TUBE SCH (09:50)
[2018-12-04 11:09] VITALS: BP 157/76
== END 2018-12-04 14:02 | DRG 643 ==
LOC: EDUNIT# → EDBD → N.ED 00:34 → SUATTDRO 04:41 → N.EDINP 04:41 → N.3E 05:14
PROVIDERS: ADMIT Internal Medicine; ATTEND Hospitalist

== ENCOUNTER 2018-12-15 07:50 | Inpatient (IN) ==
[2018-12-15 08:33] LABS: Basophils % 0.2 % (0.0-0.8); Eosinophils % 0.1 % (0.00-10.9); Hematocrit 32.6 VOL% (42.0-52.0); Immature Granulocytes % 3.2 %; Immature Granulocytes Absolute 0.56 #; Lymphocytes # 1.3 10*3/uL (1.4-4.0); Lymphocytes % 7.5 % (21.2-54.2); Mean Corpuscular HGB Conc 33.7 GM/DL (32-36); Mean Corpuscular Hemoglobin 29 PG (27-34); Mean Platelet Volume 9.4 FL (9.6-12.0); Monocytes # 1.1 10*3/uL (0.11-0.8); Monocytes % 6.1 % (1.7-12.7); NRBC # 0.03 10*3/uL; Neutrophils # 14.3 10*3/uL (1.4-7.4); Neutrophils % 82.9 % (38.7-73.9); Platelet Count 491 T/CUMM (130-400); Red Blood Count 3.79 MC/CUMM (3.8-5.5); White Blood Count 17.3 T/CUMM (4-12)
[2018-12-15 08:51] LABS: ABG Base Excess 4.6 MMOL/L (-2.5-2.5); ABG HCO3 28.4 MMOL/L (20-26); ABG Oxygen Saturation 85.8 % (95-100); ABG PH 7.576 (7.35-7.45); ABG PO2 46.9 MM HG (80-95); ABG TCO2 23.4 MMOL/L (23-27)
[2018-12-15] MEDS ORDERED: PIPERACILLIN/TAZOBACTAM 3,375 MG in SODIUM CHLORIDE 0.9% 100 ML IV STA (08:55)
[2018-12-15 08:59] LABS: Albumin 2.4 G/DL (3.4-5.0); Bilirubin,Total 0.6 MG/DL (0.2-1.0); Calcium 9.2 MG/DL (8.5-10.1); Osmolality,Calculated 259.2 MOS/KG (273-304); Potassium 3.6 MMOL/L (3.5-5.1); Total Protein 7.7 G/DL (6.4-8.3)
[2018-12-15] MEDS ORDERED: LACTATED RINGERS 1,000 ML IV SCH (09:00)
[2018-12-15 09:07] LABS: Band Neutrophils 12 % (0-10); Lymphocytes 9 % (20-55); Segmented Neutrophils 76 % (50-85); Total Cells Counted 100
[2018-12-15 09:08] LABS: Hypochromasia 1+; Microcytosis Slight
[2018-12-15 09:55] LABS: Amorphous Crystals,Urine Occasional /HPF (Few); Apearance,Urine Slightly Hazy (Clear); Bacteria,Urine Occasional /HPF (Few); Bilirubin,Urine Negative (Negative); Blood, Urine Negative (Negative); Glucose,Urine (UA) Negative (Negative); Ketones,Urine Negative (Negative); Mucus,Urine Occasional /LPF (Occasional); Nitrite,Urine Negative (Negative); Protein,Urine Negative; RBC,Urine 2 /HPF (0-4); Squamous Epithelial Cell,Urine Occasional /HPF (0-10); Urine Color Yellow (Yellow); Urine Specific Gravity 1.013 (1.001-1.035); WBC,Urine 6 /HPF (0-6)
[2018-12-15] MEDS ORDERED: LORazepam 2 MG/1 ML VIAL IV PRN (10:57)
[2018-12-15] MEDS ORDERED: LORazepam 1 MG TABLET PO PRN (10:57)
[2018-12-15] MEDS: DEXTROSE 5% NACL 0.45% 1,000 ML IV SCH (17:35)
[2018-12-16] MEDS: PIPERACILLIN/TAZOBACTAM 3,375 MG in SODIUM CHLORIDE 0.9% 100 ML IV SCH ×2 (09:14→17:09)
[2018-12-16] MEDS: DEXTROSE 5% NACL 0.45% 1,000 ML IV SCH (17:10)
[2018-12-17] MEDS: PIPERACILLIN/TAZOBACTAM 3,375 MG in SODIUM CHLORIDE 0.9% 100 ML IV SCH ×3 (00:03→16:19)
[2018-12-17] MEDS ORDERED: DEXTROSE 50% 25 GM/50 ML VIAL IV PRN (10:19)
[2018-12-17] MEDS ORDERED: GLUCAGON 1 MG VIAL IM PRN (10:19)
[2018-12-17] MEDS ORDERED: VANCOMYCIN INJ 750 MG in SODIUM CHLORIDE 0.9% 250 ML IV SCH (10:30)
[2018-12-17] MEDS: VANCOMYCIN INJ 1,000 MG in SODIUM CHLORIDE 0.9% 250 ML IV SCH (13:14)
[2018-12-17] MEDS: MAGNESIUM HYDROXIDE SUSP 30 ML UDCUP PEG SCH (13:15)
[2018-12-17] MEDS: POTASSIUM PHOS/SOD PHOS POWDER 250 MG PACK PEG SCH ×2 (16:19→21:15)
[2018-12-17] MEDS: risperiDONE 1 MG TABLET PEG SCH ×2 (16:19→17:20)
[2018-12-17] MEDS: OXcarbazepine 300 MG TABLET PEG SCH ×2 (16:19→21:15)
[2018-12-17] MEDS: FAMOTIDINE 8 MG/ML 50 ML/BOTTLE PEG SCH (21:13)
[2018-12-17] MEDS: LACTOBACILLUS ACIDOPHILUS/BULGARICUS 1 PACKET PEG SCH (21:14)
[2018-12-17] MEDS: METHEN/SOD PHOS/METH BLUE/HYOS TABLET PEG SCH (21:14)
[2018-12-17] MEDS: levETIRAcetam LIQUID 100 MG/ML 30 ML/BOTTLE PER TUBE SCH (21:14)
[2018-12-17] MEDS: BENZTROPINE 1 MG TABLET PEG SCH (21:16)
[2018-12-17] MEDS: MAGNESIUM OXIDE 400 MG TABLET PEG SCH (21:16)
[2018-12-17] MEDS: HYDROCORTISONE 10 MG TABLET PER TUBE SCH (21:17)
[2018-12-18] MEDS: VANCOMYCIN INJ 1,000 MG in SODIUM CHLORIDE 0.9% 250 ML IV SCH ×3 (00:14→23:17)
[2018-12-18] MEDS: PIPERACILLIN/TAZOBACTAM 3,375 MG in SODIUM CHLORIDE 0.9% 100 ML IV SCH ×2 (02:48→15:36)
[2018-12-18 06:03] LABS: Basophils % 0.2 % (0.0-0.8); Eosinophils # 0.1 10*3/uL (0.0-0.87); Eosinophils % 0.5 % (0.00-10.9); Hematocrit 26.1 VOL% (42.0-52.0); Hemoglobin 8.3 GM/DL (14.0-18.0); Immature Granulocytes % 2.1 %; Immature Granulocytes Absolute 0.32 #; Lymphocytes # 1.3 10*3/uL (1.4-4.0); Lymphocytes % 8.6 % (21.2-54.2); Mean Corpuscular HGB Conc 31.8 GM/DL (32-36); Mean Corpuscular Hemoglobin 29 PG (27-34); Mean Platelet Volume 9.1 FL (9.6-12.0); Monocytes # 1.2 10*3/uL (0.11-0.8); Monocytes % 8.1 % (1.7-12.7); Neutrophils % 80.5 % (38.7-73.9); Platelet Count 409 T/CUMM (130-400); Red Cell Distribution Width 15.4 % (9.3-17.3); White Blood Count 14.9 T/CUMM (4-12)
[2018-12-18 06:26] LABS: Lymphocytes 10 % (20-55); Metamyelocytes 1 %; Segmented Neutrophils 76 % (50-85); Total Cells Counted 100
[2018-12-18 06:27] LABS: Platelet Estimate Normal
[2018-12-18 06:33] LABS: Albumin 1.9 G/DL (3.4-5.0); Bilirubin,Total 0.6 MG/DL (0.2-1.0); Calcium 8.4 MG/DL (8.5-10.1); Osmolality,Calculated 279.5 MOS/KG (273-304); Potassium 4.1 MMOL/L (3.5-5.1); Total Protein 6.3 G/DL (6.4-8.3)
[2018-12-18] MEDS: LACTOBACILLUS ACIDOPHILUS/BULGARICUS 1 PACKET PEG SCH ×2 (09:18→21:52)
[2018-12-18] MEDS: MAGNESIUM OXIDE 400 MG TABLET PEG SCH ×2 (09:19→21:53)
[2018-12-18] MEDS: POLYETHYLENE GLYCOL POWDER 17 GM PACK PEG SCH (09:19)
[2018-12-18] MEDS: HYDROCORTISONE 10 MG TABLET PER TUBE SCH ×2 (09:19→21:52)
[2018-12-18] MEDS: POTASSIUM PHOS/SOD PHOS POWDER 250 MG PACK PEG SCH ×3 (09:20→21:52)
[2018-12-18] MEDS: METHEN/SOD PHOS/METH BLUE/HYOS TABLET PEG SCH ×2 (09:20→21:53)
[2018-12-18] MEDS: BENZTROPINE 1 MG TABLET PEG SCH ×2 (09:20→21:53)
[2018-12-18] MEDS: MAGNESIUM HYDROXIDE SUSP 30 ML UDCUP PEG SCH ×2 (09:20→09:30)
[2018-12-18] MEDS: FAMOTIDINE 8 MG/ML 50 ML/BOTTLE PEG SCH ×2 (09:24→21:51)
[2018-12-18] MEDS: levETIRAcetam LIQUID 100 MG/ML 30 ML/BOTTLE PER TUBE SCH ×2 (09:25→21:52)
[2018-12-18] MEDS ORDERED: IRON SUCROSE 300 MG in SODIUM CHLORIDE 0.9% 100 ML IV ONE (09:40)
[2018-12-18] MEDS: DEXTROSE 5% NACL 0.45% 1,000 ML IV SCH (09:42)
[2018-12-18] MEDS: risperiDONE 1 MG TABLET PEG SCH ×2 (14:42→17:29)
[2018-12-18] MEDS: OXcarbazepine 300 MG TABLET PEG SCH ×2 (14:43→21:53)
[2018-12-19] MEDS: PIPERACILLIN/TAZOBACTAM 3,375 MG in SODIUM CHLORIDE 0.9% 100 ML IV SCH ×2 (00:22→08:40)
[2018-12-19 06:44] LABS: Basophils % 0.2 % (0.0-0.8); Eosinophils % 0.3 % (0.00-10.9); Hematocrit 28.6 VOL% (42.0-52.0); Immature Granulocytes % 2.3 %; Immature Granulocytes Absolute 0.28 #; Lymphocytes # 1.6 10*3/uL (1.4-4.0); Lymphocytes % 13.1 % (21.2-54.2); Mean Corpuscular HGB Conc 31.5 GM/DL (32-36); Mean Corpuscular Hemoglobin 28 PG (27-34); Mean Corpuscular Volume 89.7 FL (87-102); Monocytes # 0.7 10*3/uL (0.11-0.8); Monocytes % 6.1 % (1.7-12.7); Neutrophils # 9.4 10*3/uL (1.4-7.4); Platelet Count 422 T/CUMM (130-400); Red Blood Count 3.19 MC/CUMM (3.8-5.5); Red Cell Distribution Width 15.3 % (9.3-17.3); White Blood Count 12.1 T/CUMM (4-12)
[2018-12-19 07:06] LABS: Band Neutrophils 1 % (0-10); Bilirubin,Total 0.9 MG/DL (0.2-1.0); Calcium 8.5 MG/DL (8.5-10.1); Hypochromasia 1+; Lymphocytes 14 % (20-55); Osmolality,Calculated 280.4 MOS/KG (273-304); Platelet Estimate Adequate; Potassium 3.8 MMOL/L (3.5-5.1); Segmented Neutrophils 80 % (50-85); Total Cells Counted 100; Total Protein 6.8 G/DL (6.4-8.3)
[2018-12-19 07:07] LABS: Microcytosis Slight
[2018-12-19] MEDS: BENZTROPINE 1 MG TABLET PEG SCH ×2 (10:05→21:23)
[2018-12-19] MEDS: MAGNESIUM OXIDE 400 MG TABLET PEG SCH ×2 (10:05→21:23)
[2018-12-19] MEDS: LACTOBACILLUS ACIDOPHILUS/BULGARICUS 1 PACKET PEG SCH ×2 (10:06→21:25)
[2018-12-19] MEDS: HYDROCORTISONE 10 MG TABLET PER TUBE SCH ×2 (10:06→21:22)
[2018-12-19] MEDS: METHEN/SOD PHOS/METH BLUE/HYOS TABLET PEG SCH ×2 (10:06→21:22)
[2018-12-19] MEDS: POTASSIUM PHOS/SOD PHOS POWDER 250 MG PACK PEG SCH ×3 (10:07→21:23)
[2018-12-19] MEDS: FAMOTIDINE 8 MG/ML 50 ML/BOTTLE PEG SCH ×2 (10:07→21:25)
[2018-12-19] MEDS: levETIRAcetam LIQUID 100 MG/ML 30 ML/BOTTLE PER TUBE SCH ×2 (10:07→21:25)
[2018-12-19] MEDS: POLYETHYLENE GLYCOL POWDER 17 GM PACK PEG SCH (10:07)
[2018-12-19] MEDS: MAGNESIUM HYDROXIDE SUSP 30 ML UDCUP PEG SCH (10:08)
[2018-12-19] MEDS: VANCOMYCIN INJ 1,000 MG in SODIUM CHLORIDE 0.9% 250 ML IV SCH ×2 (12:29→23:26)
[2018-12-19] MEDS: risperiDONE 1 MG TABLET PEG SCH ×2 (14:00→21:25)
[2018-12-19] MEDS: OXcarbazepine 300 MG TABLET PEG SCH ×2 (15:05→21:22)
[2018-12-20 06:54] LABS: Calcium 8.3 MG/DL (8.5-10.1); Osmolality,Calculated 274.8 MOS/KG (273-304); Potassium 4.2 MMOL/L (3.5-5.1); Prealbumin 17.2 MG/DL (20-40)
[2018-12-20] MEDS: POTASSIUM PHOS/SOD PHOS POWDER 250 MG PACK PEG SCH ×3 (10:03→22:36)
[2018-12-20] MEDS: HYDROCORTISONE 10 MG TABLET PER TUBE SCH ×2 (10:03→22:34)
[2018-12-20] MEDS: BENZTROPINE 1 MG TABLET PEG SCH ×2 (10:03→22:35)
[2018-12-20] MEDS: MAGNESIUM OXIDE 400 MG TABLET PEG SCH ×2 (10:03→22:35)
[2018-12-20] MEDS: FAMOTIDINE 8 MG/ML 50 ML/BOTTLE PEG SCH ×2 (10:04→22:36)
[2018-12-20] MEDS: MAGNESIUM HYDROXIDE SUSP 30 ML UDCUP PEG SCH (10:04)
[2018-12-20] MEDS: POLYETHYLENE GLYCOL POWDER 17 GM PACK PEG SCH (10:04)
[2018-12-20] MEDS: METHEN/SOD PHOS/METH BLUE/HYOS TABLET PEG SCH ×2 (10:04→22:35)
[2018-12-20] MEDS: levETIRAcetam LIQUID 100 MG/ML 30 ML/BOTTLE PER TUBE SCH ×2 (10:05→22:36)
[2018-12-20] MEDS: LACTOBACILLUS ACIDOPHILUS/BULGARICUS 1 PACKET PEG SCH ×2 (10:05→22:40)
[2018-12-20] MEDS: VANCOMYCIN INJ 1,000 MG in SODIUM CHLORIDE 0.9% 250 ML IV SCH ×2 (12:50→22:39)
[2018-12-20] MEDS: OXcarbazepine 300 MG TABLET PEG SCH ×2 (15:23→22:36)
[2018-12-20] MEDS: risperiDONE 1 MG TABLET PEG SCH (22:35)
[2018-12-21 07:06] LABS: Basophils % 0.3 % (0.0-0.8); Eosinophils # 0.1 10*3/uL (0.0-0.87); Eosinophils % 0.4 % (0.00-10.9); Hematocrit 29.6 VOL% (42.0-52.0); Hemoglobin 9.5 GM/DL (14.0-18.0); Immature Granulocytes % 8.2 %; Immature Granulocytes Absolute 0.97 #; Lymphocytes # 1.7 10*3/uL (1.4-4.0); Lymphocytes % 14.7 % (21.2-54.2); Mean Corpuscular HGB Conc 32.1 GM/DL (32-36); Mean Corpuscular Hemoglobin 29 PG (27-34); Mean Corpuscular Volume 89.7 FL (87-102); Mean Platelet Volume 8.8 FL (9.6-12.0); Monocytes # 1.2 10*3/uL (0.11-0.8); Monocytes % 9.9 % (1.7-12.7); NRBC # 0.04 10*3/uL; Neutrophils # 7.8 10*3/uL (1.4-7.4); Neutrophils % 66.5 % (38.7-73.9); Platelet Count 390 T/CUMM (130-400); White Blood Count 11.8 T/CUMM (4-12)
[2018-12-21 07:17] LABS: Lymphocytes 15 % (20-55); Platelet Estimate Adequate; Segmented Neutrophils 75 % (50-85); Total Cells Counted 100
[2018-12-21 07:18] LABS: Hypochromasia Slight; Microcytosis Slight
[2018-12-21 07:27] LABS: Alanine Aminotransferase 22 U/L (16-61); Albumin 2.1 G/DL (3.4-5.0); Alkaline Phosphatase 83 U/L (45-117); Aspartate Amino Transferase 16 U/L (0-37); Bilirubin,Total < 0.39 MG/DL (0.2-1.0); Blood Urea Nitrogen 20 MG/DL (7-18); Calcium 8.4 MG/DL (8.5-10.1); Glucose 96 MG/DL (74-106); Potassium 3.9 MMOL/L (3.5-5.1); Sodium 136 MMOL/L (136-145); Total Protein 6.9 G/DL (6.4-8.3)
[2018-12-21] MEDS: MAGNESIUM OXIDE 400 MG TABLET PEG SCH (09:53)
[2018-12-21] MEDS: POLYETHYLENE GLYCOL POWDER 17 GM PACK PEG SCH (09:53)
[2018-12-21] MEDS: LACTOBACILLUS ACIDOPHILUS/BULGARICUS 1 PACKET PEG SCH (09:53)
[2018-12-21] MEDS: POTASSIUM PHOS/SOD PHOS POWDER 250 MG PACK PEG SCH (09:53)
[2018-12-21] MEDS: HYDROCORTISONE 10 MG TABLET PER TUBE SCH (09:53)
[2018-12-21] MEDS: BENZTROPINE 1 MG TABLET PEG SCH (09:53)
[2018-12-21] MEDS: METHEN/SOD PHOS/METH BLUE/HYOS TABLET PEG SCH (09:53)
[2018-12-21] MEDS: MAGNESIUM HYDROXIDE SUSP 30 ML UDCUP PEG SCH (09:53)
[2018-12-21] MEDS: FAMOTIDINE 8 MG/ML 50 ML/BOTTLE PEG SCH (09:54)
[2018-12-21] MEDS: levETIRAcetam LIQUID 100 MG/ML 30 ML/BOTTLE PER TUBE SCH (09:54)
[2018-12-21] MEDS: VANCOMYCIN INJ 1,000 MG in SODIUM CHLORIDE 0.9% 250 ML IV SCH (13:26)
[2018-12-21 13:33] VITALS: BP 160/82
== END 2018-12-21 15:34 | DRG 871 ==
LOC: EDBD → EDUNIT# → N.EDINP 07:50 → N.ED 07:50 → SUATTDRO 10:57 → N.5E 14:31
PROVIDERS: ADMIT Hospitalist; ATTEND Internal Medicine

== ENCOUNTER 2019-10-14 01:52 | Inpatient (IN) ==
[2019-10-14] MEDS ORDERED: PROMETHAZINE 25 MG/1 ML VIAL IM STA (02:23)
[2019-10-14] MEDS ORDERED: SODIUM CHLORIDE 0.9% 1,000 ML IV STA (02:35)
[2019-10-14 03:07] LABS: Basophils % 0.2 % (0.0-0.8); Eosinophils # 0.1 10*3/uL (0.0-0.87); Eosinophils % 0.4 % (0.00-10.9); Hematocrit 43.1 VOL% (42.0-52.0); Hemoglobin 14.8 GM/DL (14.0-18.0); Immature Granulocytes % 0.4 %; Immature Granulocytes Absolute 0.05 #; Lymphocytes % 14.1 % (21.2-54.2); Mean Corpuscular HGB Conc 34.3 GM/DL (32-36); Mean Corpuscular Volume 91.3 FL (87-102); Mean Platelet Volume 9.8 FL (9.6-12.0); Monocytes % 7.7 % (1.7-12.7); Neutrophils % 77.2 % (38.7-73.9); Platelet Count 227 T/CUMM (130-400); Red Blood Count 4.72 MC/CUMM (3.8-5.5); Red Cell Distribution Width 13.6 % (9.3-17.3)
[2019-10-14] MEDS ORDERED: ONDANSETRON 4 MG/2 ML VIAL IV ONE (03:12)
[2019-10-14 03:25] LABS: Alanine Aminotransferase 23 U/L (16-61); Albumin 3.8 G/DL (3.4-5.0); Alkaline Phosphatase 66 U/L (45-117); Aspartate Amino Transferase 20 U/L (0-37); Bilirubin,Total < 0.39 MG/DL (0.2-1.0); Blood Urea Nitrogen 17 MG/DL (7-18); Calcium 8.8 MG/DL (8.5-10.1); Estimated Glom Filtration Rate 91 ML/MIN; Glucose 115 MG/DL (74-106); Total Protein 7.3 G/DL (6.4-8.3)
[2019-10-14 04:13] LABS: Apearance,Urine CLEAR (Clear); Bilirubin,Urine Negative (Negative); Blood, Urine Negative (Negative); Glucose,Urine (UA) Negative (Negative); Ketones,Urine Negative (Negative); Mucus,Urine Occasional /LPF (Occasional); Nitrite,Urine Negative (Negative); Protein,Urine Negative; RBC,Urine 2 /HPF (0-4); Urine Color Yellow (Yellow); Urine Specific Gravity 1.023 (1.001-1.035); WBC,Urine <1 /HPF (0-6)
[2019-10-14 04:45] LABS: Hypochromasia 1+; Platelet Estimate Adequate
[2019-10-14] MEDS ORDERED: PIPERACILLIN/TAZOBACTAM 3,375 MG in SODIUM CHLORIDE 0.9% 100 ML IV STA (04:51)
[2019-10-14] MEDS ORDERED: SODIUM CHLORIDE 0.9% 800 ML IV STA (04:53)
[2019-10-14] MEDS ORDERED: ACETAMINOPHEN 325 MG TABLET PO PRN (05:50)
[2019-10-14] MEDS ORDERED: ONDANSETRON 4 MG/2 ML VIAL IV PRN (05:50)
[2019-10-14] MEDS ORDERED: POTASSIUM CHLORIDE 20 MEQ TABLET PO ONE (05:59)
[2019-10-14] MEDS: LEVOFLOXACIN INJ 500 MG in PREMIX 1 EACH IV SCH (07:43)
[2019-10-14 07:55] LABS: Risk Ratio 2.01; Thyroid Stimulating Hormone 2.25 uIU/ml (0.358-3.74); VLDL CHOLESTEROL 15.6 MG/DL
[2019-10-14] MEDS ORDERED: ACETAMINOPHEN 325 MG/10.15 ML UDCUP PEG PRN (09:00)
[2019-10-14] MEDS ORDERED: ACETAMINOPHEN 325 MG/10.15 ML UDCUP PO PRN (09:00)
[2019-10-14] MEDS ORDERED: POLYETHYLENE GLYCOL POWDER 17 GM PACK PO SCH (09:00)
[2019-10-14] MEDS ORDERED: DOCUSATE SODIUM 100 MG CAPSULE PO SCH (09:00)
[2019-10-14] MEDS ORDERED: PANTOPRAZOLE 40 MG TABLET PO SCH (09:00)
[2019-10-14] MEDS: LANSOPRAZOLE ODT 30 MG TABLET PEG SCH (10:30)
[2019-10-14] MEDS: POLYETHYLENE GLYCOL POWDER 17 GM PACK PEG SCH (10:30)
[2019-10-14] MEDS: ENOXAPARIN 40 MG/0.4 ML SYRINGE SUBCUT SCH (10:30)
[2019-10-14] MEDS: SODIUM CHLORIDE 0.9% 1,000 ML IV SCH ×2 (10:31)
[2019-10-14] MEDS: DOCUSATE SODIUM 100 MG/10 ML UDCUP PEG SCH ×2 (10:31→21:21)
[2019-10-14] MEDS: DEXTROSE 5% NACL 0.45% 1,000 ML IV SCH (18:06)
[2019-10-15] MEDS: DEXTROSE 5% NACL 0.45% 1,000 ML IV SCH ×2 (03:55→15:37)
[2019-10-15 05:10] LABS: Basophils % 0.3 % (0.0-0.8); Eosinophils # 0.2 10*3/uL (0.0-0.87); Hemoglobin 13.8 GM/DL (14.0-18.0); Immature Granulocytes % 0.4 %; Immature Granulocytes Absolute 0.04 #; Lymphocytes # 2.4 10*3/uL (1.4-4.0); Mean Corpuscular HGB Conc 32.9 GM/DL (32-36); Mean Corpuscular Volume 94.4 FL (87-102); Mean Platelet Volume 9.8 FL (9.6-12.0); Monocytes % 10.3 % (1.7-12.7); Platelet Count 193 T/CUMM (130-400); Red Blood Count 4.45 MC/CUMM (3.8-5.5); White Blood Count 9.5 T/CUMM (4-12)
[2019-10-15] MEDS: LEVOFLOXACIN INJ 500 MG in PREMIX 1 EACH IV SCH (05:11)
[2019-10-15 05:43] LABS: Calcium 8.4 MG/DL (8.5-10.1)
[2019-10-15] MEDS: DOCUSATE SODIUM 100 MG/10 ML UDCUP PEG SCH ×2 (09:59→21:43)
[2019-10-15] MEDS: ENOXAPARIN 40 MG/0.4 ML SYRINGE SUBCUT SCH (09:59)
[2019-10-15] MEDS: POLYETHYLENE GLYCOL POWDER 17 GM PACK PEG SCH (10:00)
[2019-10-15] MEDS: LANSOPRAZOLE ODT 30 MG TABLET PEG SCH (10:00)
[2019-10-15] MEDS: OXcarbazepine 300 MG TABLET PEG SCH ×2 (15:37→21:44)
[2019-10-15] MEDS: levETIRAcetam LIQUID 100 MG/ML 30 ML/BOTTLE PEG SCH ×2 (15:38→21:45)
[2019-10-15] MEDS ORDERED: HYDROCORTISONE 5 MG PEG SCH (21:00)
[2019-10-15] MEDS: HYDROCORTISONE 10 MG TABLET PEG SCH (21:43)
[2019-10-15] MEDS: LACTOBACILLUS RHAMNOSUS GG CAPSULE PEG SCH (21:43)
[2019-10-15] MEDS: MAGNESIUM OXIDE 400 MG TABLET PEG SCH (21:43)
[2019-10-15] MEDS: FAMOTIDINE 8 MG/ML 50 ML/BOTTLE PEG SCH (21:44)
[2019-10-16] MEDS: DEXTROSE 5% NACL 0.45% 1,000 ML IV SCH ×2 (00:48→16:49)
[2019-10-16 04:45] LABS: Basophils % 0.2 % (0.0-0.8); Eosinophils # 0.1 10*3/uL (0.0-0.87); Eosinophils % 0.7 % (0.00-10.9); Hematocrit 40.8 VOL% (42.0-52.0); Hemoglobin 13.8 GM/DL (14.0-18.0); Immature Granulocytes % 0.3 %; Immature Granulocytes Absolute 0.03 #; Lymphocytes % 10.5 % (21.2-54.2); Mean Corpuscular HGB Conc 33.8 GM/DL (32-36); Mean Corpuscular Volume 91.1 FL (87-102); Mean Platelet Volume 9.7 FL (9.6-12.0); Monocytes % 8.1 % (1.7-12.7); Neutrophils % 80.2 % (38.7-73.9); Platelet Count 207 T/CUMM (130-400); Red Blood Count 4.48 MC/CUMM (3.8-5.5); Red Cell Distribution Width 13.6 % (9.3-17.3); White Blood Count 9.8 T/CUMM (4-12)
[2019-10-16 05:07] LABS: Calcium 8.5 MG/DL (8.5-10.1); Osmolality,Calculated 275.5 MOS/KG (273-304)
[2019-10-16] MEDS: LEVOFLOXACIN INJ 500 MG in PREMIX 1 EACH IV SCH (05:52)
[2019-10-16] MEDS ORDERED: NON-FORMULARY MEDICATION (Esomeprazole Magnesium 40 MG) PEG SCH (06:30)
[2019-10-16] MEDS ORDERED: POLYETHYLENE GLYCOL POWDER 17 GM PACK PEG SCH (08:00)
[2019-10-16] MEDS ORDERED: BISACODYL 10 MG SUPP RECTAL SCH (09:00)
[2019-10-16] MEDS: levETIRAcetam LIQUID 100 MG/ML 30 ML/BOTTLE PEG SCH ×2 (10:08→21:22)
[2019-10-16] MEDS: FAMOTIDINE 8 MG/ML 50 ML/BOTTLE PEG SCH ×2 (10:08→21:22)
[2019-10-16] MEDS: DOCUSATE SODIUM 100 MG/10 ML UDCUP PEG SCH ×2 (10:10→21:22)
[2019-10-16] MEDS: IRON (CARBONYL)/VIT C/B12/FA TABLET PEG SCH (10:10)
[2019-10-16] MEDS: ENOXAPARIN 40 MG/0.4 ML SYRINGE SUBCUT SCH (10:10)
[2019-10-16] MEDS: HYDROCORTISONE 10 MG TABLET PEG SCH ×2 (10:11→21:16)
[2019-10-16] MEDS: POLYETHYLENE GLYCOL POWDER 17 GM PACK PEG SCH ×2 (10:11→21:23)
[2019-10-16] MEDS: MAGNESIUM OXIDE 400 MG TABLET PEG SCH ×2 (10:12→21:19)
[2019-10-16] MEDS: LACTOBACILLUS RHAMNOSUS GG CAPSULE PEG SCH ×2 (10:12→21:21)
[2019-10-16] MEDS: LANSOPRAZOLE ODT 30 MG TABLET PEG SCH (10:13)
[2019-10-16] MEDS: MAGNESIUM HYDROXIDE SUSP 30 ML UDCUP PEG SCH (15:10)
[2019-10-16] MEDS: OXcarbazepine 300 MG TABLET PEG SCH ×2 (15:10→21:20)
[2019-10-17] MEDS: DEXTROSE 5% NACL 0.45% 1,000 ML IV SCH (03:30)
[2019-10-17] MEDS: LEVOFLOXACIN INJ 500 MG in PREMIX 1 EACH IV SCH (05:10)
[2019-10-17 05:31] LABS: Basophils % 0.3 % (0.0-0.8); Eosinophils # 0.1 10*3/uL (0.0-0.87); Hematocrit 40.1 VOL% (42.0-52.0); Hemoglobin 13.3 GM/DL (14.0-18.0); Immature Granulocytes % 0.5 %; Immature Granulocytes Absolute 0.03 #; Lymphocytes # 1.3 10*3/uL (1.4-4.0); Lymphocytes % 19.4 % (21.2-54.2); Mean Corpuscular HGB Conc 33.2 GM/DL (32-36); Mean Corpuscular Volume 91.1 FL (87-102); Mean Platelet Volume 9.7 FL (9.6-12.0); Monocytes % 11.1 % (1.7-12.7); Neutrophils % 66.7 % (38.7-73.9); Platelet Count 209 T/CUMM (130-400); Red Cell Distribution Width 13.3 % (9.3-17.3); White Blood Count 6.6 T/CUMM (4-12)
[2019-10-17 05:59] LABS: Calcium 8.6 MG/DL (8.5-10.1); Osmolality,Calculated 277.4 MOS/KG (273-304)
[2019-10-17 07:39] VITALS: BP 145/73
[2019-10-17] MEDS: MAGNESIUM HYDROXIDE SUSP 30 ML UDCUP PEG SCH (09:23)
[2019-10-17] MEDS: IRON (CARBONYL)/VIT C/B12/FA TABLET PEG SCH (09:23)
[2019-10-17] MEDS: POLYETHYLENE GLYCOL POWDER 17 GM PACK PEG SCH (09:23)
[2019-10-17] MEDS: FAMOTIDINE 8 MG/ML 50 ML/BOTTLE PEG SCH (09:23)
[2019-10-17] MEDS: levETIRAcetam LIQUID 100 MG/ML 30 ML/BOTTLE PEG SCH (09:23)
[2019-10-17] MEDS: HYDROCORTISONE 10 MG TABLET PEG SCH (09:24)
[2019-10-17] MEDS: LACTOBACILLUS RHAMNOSUS GG CAPSULE PEG SCH (09:24)
[2019-10-17] MEDS: DOCUSATE SODIUM 100 MG/10 ML UDCUP PEG SCH (09:24)
[2019-10-17] MEDS: LANSOPRAZOLE ODT 30 MG TABLET PEG SCH (09:24)
[2019-10-17] MEDS: ENOXAPARIN 40 MG/0.4 ML SYRINGE SUBCUT SCH (09:24)
[2019-10-17] MEDS: MAGNESIUM OXIDE 400 MG TABLET PEG SCH (09:25)
== END 2019-10-17 11:37 | DRG 388 ==
LOC: EDBD → EDUNIT# → SUATTDRO → N.EDINP 01:52 → N.ED 01:52 → N.2E 07:14 → SUATTDRO 14:35
PROVIDERS: ADMIT Internal Medicine Nephrology; ATTEND Internal Medicine

== ENCOUNTER 2019-11-04 04:36 | Inpatient (IN) ==
[2019-11-04] MEDS ORDERED: SODIUM CHLORIDE 0.9% 1,000 ML IV STA ×2 (04:55→05:42)
[2019-11-04 05:10] LABS: Basophils # 0.1 10*3/uL (0.0-0.2); Basophils % 0.3 % (0.0-0.8); Eosinophils % 0.1 % (0.00-10.9); Hematocrit 47.8 VOL% (42.0-52.0); Hemoglobin 17.2 GM/DL (14.0-18.0); Immature Granulocytes % 0.9 %; Immature Granulocytes Absolute 0.15 #; Lymphocytes # 0.7 10*3/uL (1.4-4.0); Mean Corpuscular Volume 86.3 FL (87-102); Mean Platelet Volume 9.4 FL (9.6-12.0); Monocytes % 4.8 % (1.7-12.7); Neutrophils % 89.9 % (38.7-73.9); Platelet Count 348 T/CUMM (130-400); Red Blood Count 5.54 MC/CUMM (3.8-5.5); Red Cell Distribution Width 12.5 % (9.3-17.3); White Blood Count 16.3 T/CUMM (4-12)
[2019-11-04 05:11] LABS: ABG Base Excess -0.8 MMOL/L (-2.5-2.5); ABG HCO3 23.6 MMOL/L (20-26); ABG Oxygen Saturation 93.9 % (95-100); ABG PCO2 30.4 MM HG (35-48); ABG PH 7.459 (7.35-7.45); ABG PO2 66.4 MM HG (80-95); ABG TCO2 17.7 MMOL/L (23-27); Allen Test Positive
[2019-11-04 05:15] LABS: PT Patient Result 10.6 SECS (9.6-12.2)
[2019-11-04 05:33] LABS: Bilirubin,Total 0.6 MG/DL (0.2-1.0); Calcium 9.8 MG/DL (8.5-10.1); Osmolality,Calculated 248.1 MOS/KG (273-304); Total Protein 8.7 G/DL (6.4-8.3)
[2019-11-04 05:41] LABS: Band Neutrophils 7 % (0-10); Lymphocytes 6 % (20-55); Platelet Estimate Adequate; Segmented Neutrophils 83 % (50-85); Total Cells Counted 100
[2019-11-04] MEDS ORDERED: PIPERACILLIN/TAZOBACTAM 3,375 MG in SODIUM CHLORIDE 0.9% 100 ML IV STA (05:42)
[2019-11-04 05:52] LABS: Bilirubin,Urine Negative (Negative); Glucose,Urine (UA) Negative (Negative); Hyaline Casts,Urine 1 /LPF (0-3); Ketones,Urine Negative (Negative); Mucus,Urine Occasional /LPF (Occasional); Nitrite,Urine Negative (Negative); Protein,Urine Negative; RBC,Urine 4 /HPF (0-4); Squamous Epithelial Cell,Urine Occasional /HPF (0-10); Urine Color Yellow (Yellow); WBC,Urine 1 /HPF (0-6)
[2019-11-04 05:53] LABS: Apearance,Urine Clear (Clear); Blood, Urine Negative (Negative)
[2019-11-04] MEDS ORDERED: ONDANSETRON 4 MG/2 ML VIAL IV PRN (09:22)
[2019-11-04] MEDS ORDERED: ACETAMINOPHEN 325 MG TABLET PO PRN (09:22)
[2019-11-04] MEDS ORDERED: LANSOPRAZOLE ODT 30 MG TABLET PER TUBE SCH (09:25)
[2019-11-04] MEDS: SODIUM CHLORIDE 0.9% 1,000 ML IV SCH ×2 (10:17→22:03)
[2019-11-04] MEDS: PIPERACILLIN/TAZOBACTAM 3,375 MG in SODIUM CHLORIDE 0.9% 100 ML IV SCH ×2 (16:26→23:36)
[2019-11-04] MEDS ORDERED: hydrALAZINE 20 MG/1 ML VIAL IV PRN (16:34)
[2019-11-04] MEDS ORDERED: SUCCINYLCHOLINE 200 MG/10 ML VIAL ONE (18:56)
[2019-11-04] MEDS ORDERED: ETOMIDATE 40 MG/20 ML VIAL IV ONE (18:56)
[2019-11-04] MEDS ORDERED: LIDOCAINE 2% 5 ML VIAL ONE (18:56)
[2019-11-04] MEDS ORDERED: PHENYLEPHRINE DRIP 20 MG/250 ML PREMIX IV ONE (18:56)
[2019-11-04] MEDS ORDERED: ROCURONIUM 100 MG/10 ML VIAL IV ONE (18:56)
[2019-11-04] MEDS ORDERED: SEVOFLURANE 1 UNIT/15 MINUTE INH ONE (18:56)
[2019-11-04] MEDS ORDERED: SODIUM CHLORIDE 0.9% 1,000 ML IV ONE (18:56)
[2019-11-04] MEDS ORDERED: fentaNYL 100 MCG/2 ML VIAL ONE (18:56)
[2019-11-04 19:34] LABS: ABG Base Excess -4.3 MMOL/L (-2.5-2.5); ABG HCO3 20.9 MMOL/L (20-26); ABG Oxygen Saturation 98.7 % (95-100); ABG PCO2 27.4 MM HG (35-48); ABG PH 7.434 (7.35-7.45); ABG TCO2 15.7 MMOL/L (23-27)
[2019-11-04] MEDS ORDERED: SODIUM CHLORIDE 0.9% 500 ML IV ONE (21:02)
[2019-11-05 04:16] LABS: ABG Oxygen Saturation 99.9 % (95-100); ABG PCO2 27.4 MM HG (35-48); ABG PH 7.461 (7.35-7.45)
[2019-11-05 04:23] LABS: Basophils % 0.3 % (0.0-0.8); Eosinophils % 0.3 % (0.00-10.9); Hematocrit 34.3 VOL% (42.0-52.0); Immature Granulocytes % 0.5 %; Immature Granulocytes Absolute 0.04 #; Lymphocytes # 0.4 10*3/uL (1.4-4.0); Lymphocytes % 5.5 % (21.2-54.2); Mean Corpuscular HGB Conc 35.9 GM/DL (32-36); Mean Platelet Volume 9.6 FL (9.6-12.0); Monocytes % 5.5 % (1.7-12.7); Neutrophils % 87.9 % (38.7-73.9); Red Cell Distribution Width 12.7 % (9.3-17.3)
[2019-11-05 04:25] LABS: White Blood Count 7.7 T/CUMM (4-12)
[2019-11-05 04:26] LABS: Hemoglobin 12.3 GM/DL (14.0-18.0); Red Blood Count 3.99 MC/CUMM (3.8-5.5)
[2019-11-05 04:27] LABS: Platelet Count 212 T/CUMM (130-400)
[2019-11-05 04:34] LABS: Albumin 2.2 G/DL (3.4-5.0); Bilirubin,Total 0.7 MG/DL (0.2-1.0); Calcium 7.3 MG/DL (8.5-10.1); Osmolality,Calculated 259.1 MOS/KG (273-304); Total Protein 5.5 G/DL (6.4-8.3)
[2019-11-05 04:45] LABS: Band Neutrophils 10 % (0-10); Lymphocytes 7 % (20-55); Myelocytes 1 %; Platelet Estimate Adequate; Segmented Neutrophils 76 % (50-85); Total Cells Counted 100
[2019-11-05 04:46] LABS: Hypochromasia 1+
[2019-11-05] MEDS: SODIUM CHLORIDE 0.9% 1,000 ML IV SCH ×3 (06:00→21:56)
[2019-11-05] MEDS: PIPERACILLIN/TAZOBACTAM 3,375 MG in SODIUM CHLORIDE 0.9% 100 ML IV SCH ×3 (08:12→23:24)
[2019-11-05] MEDS ORDERED: PANTOPRAZOLE 40 MG TABLET PO SCH (09:00)
[2019-11-05] MEDS ORDERED: MORPHINE 4 MG/1 ML VIAL IV PRN (10:31)
[2019-11-05] MEDS: ALBUTEROL/IPRATROPIUM 3 ML NEB RESP TX SCH ×2 (12:08→19:03)
[2019-11-05] MEDS: LANSOPRAZOLE 3 MG/ML 90 ML/BOTTLE PEG SCH (15:16)
[2019-11-06 04:29] LABS: Basophils % 0.2 % (0.0-0.8); Eosinophils % 0.3 % (0.00-10.9); Hematocrit 31.1 VOL% (42.0-52.0); Hemoglobin 10.8 GM/DL (14.0-18.0); Immature Granulocytes Absolute 0.15 #; Lymphocytes # 0.6 10*3/uL (1.4-4.0); Lymphocytes % 4.1 % (21.2-54.2); Mean Corpuscular HGB Conc 34.7 GM/DL (32-36); Mean Corpuscular Volume 88.9 FL (87-102); Mean Platelet Volume 9.1 FL (9.6-12.0); Neutrophils % 88.4 % (38.7-73.9); Platelet Count 200 T/CUMM (130-400); Red Cell Distribution Width 13.2 % (9.3-17.3)
[2019-11-06 04:31] LABS: ABG Base Excess -4.5 MMOL/L (-2.5-2.5); ABG HCO3 18.8 MMOL/L (20-26); ABG Oxygen Saturation 98.6 % (95-100); ABG PCO2 29.5 MM HG (35-48); ABG PH 7.422 (7.35-7.45); ABG PO2 138.6 MM HG (80-95); ABG TCO2 19.7 MMOL/L (23-27)
[2019-11-06 04:51] LABS: Band Neutrophils 11 % (0-10); Eosinophils 1 % (0-10); Lymphocytes 2 % (20-55); Microcytosis Slight; Segmented Neutrophils 81 % (50-85); Total Cells Counted 100
[2019-11-06 04:52] LABS: Hypochromasia Slight; Platelet Estimate Normal
[2019-11-06 04:56] LABS: Albumin 2.2 G/DL (3.4-5.0); Bilirubin,Total 0.6 MG/DL (0.2-1.0); Osmolality,Calculated 272.7 MOS/KG (273-304)
[2019-11-06] MEDS: SODIUM CHLORIDE 0.9% 1,000 ML IV SCH ×3 (06:36→19:32)
[2019-11-06] MEDS: ALBUTEROL/IPRATROPIUM 3 ML NEB RESP TX SCH ×4 (07:05→19:53)
[2019-11-06] MEDS: PIPERACILLIN/TAZOBACTAM 3,375 MG in SODIUM CHLORIDE 0.9% 100 ML IV SCH ×2 (08:20→16:02)
[2019-11-06] MEDS: BISACODYL 10 MG SUPP RECTAL SCH (08:56)
[2019-11-06] MEDS: MAGNESIUM HYDROXIDE SUSP 30 ML UDCUP PEG SCH (08:56)
[2019-11-06] MEDS: IRON (CARBONYL)/VIT C/B12/FA TABLET PEG SCH ×4 (08:57→21:01)
[2019-11-06] MEDS: HYDROCORTISONE 10 MG TABLET PER TUBE SCH ×2 (08:57→21:02)
[2019-11-06] MEDS: MAGNESIUM OXIDE 400 MG TABLET PEG SCH ×2 (08:57→21:02)
[2019-11-06] MEDS: BENZTROPINE 1 MG TABLET PER TUBE SCH ×2 (08:57→21:01)
[2019-11-06] MEDS: LACTOBACILLUS RHAMNOSUS GG CAPSULE PEG SCH ×2 (08:57→21:02)
[2019-11-06] MEDS: POTASSIUM PHOS/SOD PHOS POWDER 250 MG PACK PEG SCH ×3 (08:57→21:00)
[2019-11-06] MEDS: LANSOPRAZOLE 3 MG/ML 90 ML/BOTTLE PEG SCH (09:04)
[2019-11-06] MEDS: FAMOTIDINE 8 MG/ML 50 ML/BOTTLE PEG SCH ×2 (10:23→21:00)
[2019-11-06] MEDS: levETIRAcetam LIQUID 100 MG/ML 30 ML/BOTTLE PEG SCH ×2 (10:24→21:02)
[2019-11-06] MEDS: OXcarbazepine 300 MG TABLET PO SCH (21:02)
[2019-11-07] MEDS: PIPERACILLIN/TAZOBACTAM 3,375 MG in SODIUM CHLORIDE 0.9% 100 ML IV SCH ×4 (01:11→23:36)
[2019-11-07 04:47] LABS: Basophils % 0.3 % (0.0-0.8); Eosinophils % 0.3 % (0.00-10.9); Hematocrit 32.1 VOL% (42.0-52.0); Immature Granulocytes % 0.6 %; Immature Granulocytes Absolute 0.09 #; Lymphocytes # 0.7 10*3/uL (1.4-4.0); Lymphocytes % 4.9 % (21.2-54.2); Mean Corpuscular HGB Conc 34.3 GM/DL (32-36); Mean Corpuscular Volume 88.9 FL (87-102); Mean Platelet Volume 9.2 FL (9.6-12.0); Monocytes % 6.7 % (1.7-12.7); Neutrophils % 87.2 % (38.7-73.9); Platelet Count 217 T/CUMM (130-400); Red Blood Count 3.61 MC/CUMM (3.8-5.5); Red Cell Distribution Width 13.2 % (9.3-17.3); White Blood Count 14.2 T/CUMM (4-12)
[2019-11-07 05:15] LABS: Band Neutrophils 9 % (0-10); Lymphocytes 4 % (20-55); Platelet Estimate Normal; Segmented Neutrophils 83 % (50-85); Total Cells Counted 100
[2019-11-07 05:22] LABS: Albumin 2.7 G/DL (3.4-5.0); Calcium 8.5 MG/DL (8.5-10.1); Total Protein 6.9 G/DL (6.4-8.3)
[2019-11-07] MEDS: SODIUM CHLORIDE 0.9% 1,000 ML IV SCH ×4 (05:35→23:36)
[2019-11-07 05:36] LABS: Prealbumin 8.5 MG/DL (20-40)
[2019-11-07] MEDS ORDERED: NON-FORMULARY MEDICATION (Esomeprazole Magnesium 40 MG) PEG SCH (06:30)
[2019-11-07] MEDS: ALBUTEROL/IPRATROPIUM 3 ML NEB RESP TX SCH ×4 (07:34→20:12)
[2019-11-07] MEDS: OXcarbazepine 300 MG TABLET PEG SCH (08:43)
[2019-11-07] MEDS: BENZTROPINE 1 MG TABLET PER TUBE SCH ×2 (08:43→20:08)
[2019-11-07] MEDS: POLYETHYLENE GLYCOL POWDER 17 GM PACK PEG SCH (08:43)
[2019-11-07] MEDS: LACTOBACILLUS RHAMNOSUS GG CAPSULE PEG SCH ×2 (08:43→20:09)
[2019-11-07] MEDS: levETIRAcetam LIQUID 100 MG/ML 30 ML/BOTTLE PEG SCH ×2 (08:44→20:10)
[2019-11-07] MEDS: MAGNESIUM OXIDE 400 MG TABLET PEG SCH ×2 (08:44→20:08)
[2019-11-07] MEDS: POTASSIUM PHOS/SOD PHOS POWDER 250 MG PACK PEG SCH ×3 (08:44→20:08)
[2019-11-07] MEDS: HYDROCORTISONE 10 MG TABLET PER TUBE SCH ×2 (08:44→20:09)
[2019-11-07] MEDS: IRON (CARBONYL)/VIT C/B12/FA TABLET PEG SCH ×4 (08:44→20:08)
[2019-11-07] MEDS: FAMOTIDINE 8 MG/ML 50 ML/BOTTLE PEG SCH ×2 (08:45→20:10)
[2019-11-07] MEDS: MAGNESIUM HYDROXIDE SUSP 30 ML UDCUP PEG SCH (08:45)
[2019-11-07] MEDS: LANSOPRAZOLE 3 MG/ML 90 ML/BOTTLE PEG SCH (08:45)
[2019-11-07] MEDS: OXcarbazepine 300 MG TABLET PO SCH (20:08)
[2019-11-08] MEDS: ALBUTEROL/IPRATROPIUM 3 ML NEB RESP TX SCH ×4 (01:20→19:45)
[2019-11-08 04:12] LABS: Basophils % 0.2 % (0.0-0.8); Eosinophils % 0.1 % (0.00-10.9); Hemoglobin 10.8 GM/DL (14.0-18.0); Immature Granulocytes % 1.2 %; Immature Granulocytes Absolute 0.16 #; Lymphocytes # 0.7 10*3/uL (1.4-4.0); Lymphocytes % 4.8 % (21.2-54.2); Mean Corpuscular HGB Conc 34.8 GM/DL (32-36); Mean Corpuscular Volume 87.1 FL (87-102); Mean Platelet Volume 9.2 FL (9.6-12.0); Monocytes % 9.8 % (1.7-12.7); Neutrophils % 83.9 % (38.7-73.9); Platelet Count 249 T/CUMM (130-400); Red Blood Count 3.56 MC/CUMM (3.8-5.5); White Blood Count 13.5 T/CUMM (4-12)
[2019-11-08 04:32] LABS: Osmolality,Calculated 281.1 MOS/KG (273-304)
[2019-11-08 05:13] LABS: Atypical Lymphocytes Few; Band Neutrophils 5 % (0-10); Hypochromasia Slight; Lymphocytes 6 % (20-55); Segmented Neutrophils 78 % (50-85); Total Cells Counted 100
[2019-11-08 05:14] LABS: Microcytosis Slight
[2019-11-08] MEDS: SODIUM CHLORIDE 0.9% 1,000 ML IV SCH ×3 (08:13→20:12)
[2019-11-08] MEDS: OXcarbazepine 300 MG TABLET PEG SCH (08:14)
[2019-11-08] MEDS: LACTOBACILLUS RHAMNOSUS GG CAPSULE PEG SCH ×2 (08:14→21:57)
[2019-11-08] MEDS: POLYETHYLENE GLYCOL POWDER 17 GM PACK PEG SCH (08:14)
[2019-11-08] MEDS: BENZTROPINE 1 MG TABLET PER TUBE SCH ×2 (08:14→21:57)
[2019-11-08] MEDS: MAGNESIUM HYDROXIDE SUSP 30 ML UDCUP PEG SCH (08:14)
[2019-11-08] MEDS: MAGNESIUM OXIDE 400 MG TABLET PEG SCH ×2 (08:15→21:57)
[2019-11-08] MEDS: HYDROCORTISONE 10 MG TABLET PER TUBE SCH ×2 (08:15→21:57)
[2019-11-08] MEDS: POTASSIUM PHOS/SOD PHOS POWDER 250 MG PACK PEG SCH ×3 (08:16→21:57)
[2019-11-08] MEDS: IRON (CARBONYL)/VIT C/B12/FA TABLET PEG SCH ×4 (08:16→21:57)
[2019-11-08] MEDS: levETIRAcetam LIQUID 100 MG/ML 30 ML/BOTTLE PEG SCH ×2 (08:17→21:59)
[2019-11-08] MEDS: LANSOPRAZOLE 3 MG/ML 90 ML/BOTTLE PEG SCH (08:17)
[2019-11-08] MEDS: FAMOTIDINE 8 MG/ML 50 ML/BOTTLE PEG SCH ×2 (08:18→22:46)
[2019-11-08] MEDS: PIPERACILLIN/TAZOBACTAM 3,375 MG in SODIUM CHLORIDE 0.9% 100 ML IV SCH ×3 (08:52→23:32)
[2019-11-08] MEDS: OXcarbazepine 300 MG TABLET PO SCH (21:57)
[2019-11-09] MEDS: ALBUTEROL/IPRATROPIUM 3 ML NEB RESP TX SCH ×4 (00:05→20:08)
[2019-11-09 05:53] LABS: Basophils % 0.2 % (0.0-0.8); Eosinophils # 0.1 10*3/uL (0.0-0.87); Hematocrit 29.5 VOL% (42.0-52.0); Hemoglobin 10.3 GM/DL (14.0-18.0); Immature Granulocytes % 1.5 %; Immature Granulocytes Absolute 0.15 #; Lymphocytes # 1.4 10*3/uL (1.4-4.0); Lymphocytes % 13.9 % (21.2-54.2); Mean Corpuscular HGB Conc 34.9 GM/DL (32-36); Mean Corpuscular Volume 88.6 FL (87-102); Mean Platelet Volume 9.1 FL (9.6-12.0); Monocytes % 14.6 % (1.7-12.7); Neutrophils % 68.8 % (38.7-73.9); Platelet Count 227 T/CUMM (130-400); Red Blood Count 3.33 MC/CUMM (3.8-5.5); Red Cell Distribution Width 13.4 % (9.3-17.3); White Blood Count 9.8 T/CUMM (4-12)
[2019-11-09 06:15] LABS: Osmolality,Calculated 277.3 MOS/KG (273-304)
[2019-11-09] MEDS: MAGNESIUM OXIDE 400 MG TABLET PEG SCH ×2 (10:49→21:37)
[2019-11-09] MEDS: POLYETHYLENE GLYCOL POWDER 17 GM PACK PEG SCH (10:49)
[2019-11-09] MEDS: BISACODYL 10 MG SUPP RECTAL SCH (10:49)
[2019-11-09] MEDS: OXcarbazepine 300 MG TABLET PEG SCH (10:50)
[2019-11-09] MEDS: IRON (CARBONYL)/VIT C/B12/FA TABLET PEG SCH ×4 (10:50→21:35)
[2019-11-09] MEDS: LACTOBACILLUS RHAMNOSUS GG CAPSULE PEG SCH ×2 (10:50→21:36)
[2019-11-09] MEDS: HYDROCORTISONE 10 MG TABLET PER TUBE SCH ×2 (10:50→21:35)
[2019-11-09] MEDS: POTASSIUM PHOS/SOD PHOS POWDER 250 MG PACK PEG SCH ×3 (10:50→21:35)
[2019-11-09] MEDS: BENZTROPINE 1 MG TABLET PER TUBE SCH ×2 (10:50→21:37)
[2019-11-09] MEDS: SODIUM CHLORIDE 0.9% 1,000 ML IV SCH (10:51)
[2019-11-09] MEDS: MAGNESIUM HYDROXIDE SUSP 30 ML UDCUP PEG SCH (10:51)
[2019-11-09] MEDS: levETIRAcetam LIQUID 100 MG/ML 30 ML/BOTTLE PEG SCH ×2 (10:51→21:35)
[2019-11-09] MEDS: PIPERACILLIN/TAZOBACTAM 3,375 MG in SODIUM CHLORIDE 0.9% 100 ML IV SCH ×3 (11:02→23:34)
[2019-11-09] MEDS: FAMOTIDINE 8 MG/ML 50 ML/BOTTLE PEG SCH ×2 (11:02→21:37)
[2019-11-09] MEDS ORDERED: MAGNESIUM SULF RIDER 4 GM in PREMIX 1 EACH IV ONE (12:23)
[2019-11-09] MEDS: POTASSIUM CHLORIDE RIDER 10 MEQ in PREMIX 1 EACH IV SCH ×4 (14:38→19:15)
[2019-11-09] MEDS: LANSOPRAZOLE 3 MG/ML 90 ML/BOTTLE PEG SCH (14:40)
[2019-11-09] MEDS: OMEPRAZOLE ODT 20 MG TABLET PEG SCH (16:38)
[2019-11-09] MEDS: OXcarbazepine 300 MG TABLET PO SCH (21:36)
[2019-11-10] MEDS: ALBUTEROL/IPRATROPIUM 3 ML NEB RESP TX SCH ×4 (01:23→19:36)
[2019-11-10 06:11] LABS: Basophils % 0.2 % (0.0-0.8); Eosinophils # 0.1 10*3/uL (0.0-0.87); Eosinophils % 0.6 % (0.00-10.9); Hematocrit 28.7 VOL% (42.0-52.0); Hemoglobin 9.9 GM/DL (14.0-18.0); Immature Granulocytes % 1.1 %; Lymphocytes # 1.4 10*3/uL (1.4-4.0); Lymphocytes % 16.3 % (21.2-54.2); Mean Corpuscular HGB Conc 34.5 GM/DL (32-36); Mean Platelet Volume 9.4 FL (9.6-12.0); Monocytes % 9.2 % (1.7-12.7); Neutrophils % 72.6 % (38.7-73.9); Platelet Count 235 T/CUMM (130-400); Red Blood Count 3.19 MC/CUMM (3.8-5.5); Red Cell Distribution Width 13.6 % (9.3-17.3); White Blood Count 8.8 T/CUMM (4-12)
[2019-11-10 06:22] LABS: Calcium 8.2 MG/DL (8.5-10.1); Osmolality,Calculated 277.4 MOS/KG (273-304)
[2019-11-10] MEDS: MAGNESIUM HYDROXIDE SUSP 30 ML UDCUP PEG SCH (10:37)
[2019-11-10] MEDS: FAMOTIDINE 8 MG/ML 50 ML/BOTTLE PEG SCH ×2 (10:37→22:37)
[2019-11-10] MEDS: BENZTROPINE 1 MG TABLET PER TUBE SCH ×2 (10:38→22:36)
[2019-11-10] MEDS: MAGNESIUM OXIDE 400 MG TABLET PEG SCH ×2 (10:38→22:37)
[2019-11-10] MEDS: IRON (CARBONYL)/VIT C/B12/FA TABLET PEG SCH ×4 (10:38→22:37)
[2019-11-10] MEDS: LACTOBACILLUS RHAMNOSUS GG CAPSULE PEG SCH ×2 (10:38→22:37)
[2019-11-10] MEDS: POTASSIUM PHOS/SOD PHOS POWDER 250 MG PACK PEG SCH ×3 (10:38→22:37)
[2019-11-10] MEDS: OXcarbazepine 300 MG TABLET PEG SCH (10:39)
[2019-11-10] MEDS: OMEPRAZOLE ODT 20 MG TABLET PEG SCH (10:39)
[2019-11-10] MEDS: POLYETHYLENE GLYCOL POWDER 17 GM PACK PEG SCH (10:39)
[2019-11-10] MEDS: HYDROCORTISONE 10 MG TABLET PER TUBE SCH ×2 (10:39→22:36)
[2019-11-10] MEDS: SODIUM CHLORIDE 0.9% 1,000 ML IV SCH ×2 (10:40→16:06)
[2019-11-10] MEDS: levETIRAcetam LIQUID 100 MG/ML 30 ML/BOTTLE PEG SCH ×2 (10:40→22:37)
[2019-11-10] MEDS: PIPERACILLIN/TAZOBACTAM 3,375 MG in SODIUM CHLORIDE 0.9% 100 ML IV SCH ×2 (10:50→16:07)
[2019-11-10] MEDS: OXcarbazepine 300 MG TABLET PO SCH (22:37)
[2019-11-11] MEDS: ALBUTEROL/IPRATROPIUM 3 ML NEB RESP TX SCH ×4 (00:14→19:32)
[2019-11-11] MEDS: PIPERACILLIN/TAZOBACTAM 3,375 MG in SODIUM CHLORIDE 0.9% 100 ML IV SCH ×3 (01:24→17:25)
[2019-11-11] MEDS: SODIUM CHLORIDE 0.9% 1,000 ML IV SCH ×2 (03:14→14:41)
[2019-11-11 05:36] LABS: Basophils % 0.2 % (0.0-0.8); Eosinophils % 0.4 % (0.00-10.9); Hematocrit 29.5 VOL% (42.0-52.0); Hemoglobin 9.8 GM/DL (14.0-18.0); Immature Granulocytes % 1.1 %; Immature Granulocytes Absolute 0.09 #; Lymphocytes # 0.9 10*3/uL (1.4-4.0); Lymphocytes % 11.1 % (21.2-54.2); Mean Corpuscular HGB Conc 33.2 GM/DL (32-36); Mean Corpuscular Volume 90.5 FL (87-102); Mean Platelet Volume 9.5 FL (9.6-12.0); Monocytes % 6.8 % (1.7-12.7); Neutrophils % 80.4 % (38.7-73.9); Platelet Count 223 T/CUMM (130-400); Red Blood Count 3.26 MC/CUMM (3.8-5.5); Red Cell Distribution Width 13.6 % (9.3-17.3); White Blood Count 8.3 T/CUMM (4-12)
[2019-11-11 06:07] LABS: Calcium 8.3 MG/DL (8.5-10.1); Osmolality,Calculated 279.4 MOS/KG (273-304)
[2019-11-11 06:15] LABS: Prealbumin 8.9 MG/DL (20-40)
[2019-11-11] MEDS: POLYETHYLENE GLYCOL POWDER 17 GM PACK PEG SCH (07:16)
[2019-11-11] MEDS: FAMOTIDINE 8 MG/ML 50 ML/BOTTLE PEG SCH ×2 (08:46→21:44)
[2019-11-11] MEDS: OMEPRAZOLE ODT 20 MG TABLET PEG SCH (08:47)
[2019-11-11] MEDS: POTASSIUM PHOS/SOD PHOS POWDER 250 MG PACK PEG SCH ×3 (08:47→21:43)
[2019-11-11] MEDS: levETIRAcetam LIQUID 100 MG/ML 30 ML/BOTTLE PEG SCH ×2 (08:47→21:44)
[2019-11-11] MEDS: BENZTROPINE 1 MG TABLET PER TUBE SCH ×2 (08:48→21:44)
[2019-11-11] MEDS: OXcarbazepine 300 MG TABLET PEG SCH (08:48)
[2019-11-11] MEDS: LACTOBACILLUS RHAMNOSUS GG CAPSULE PEG SCH ×2 (08:48→21:43)
[2019-11-11] MEDS: MAGNESIUM OXIDE 400 MG TABLET PEG SCH ×2 (08:48→21:42)
[2019-11-11] MEDS: IRON (CARBONYL)/VIT C/B12/FA TABLET PEG SCH ×4 (08:48→21:44)
[2019-11-11] MEDS: HYDROCORTISONE 10 MG TABLET PER TUBE SCH ×2 (08:48→21:42)
[2019-11-11] MEDS: MAGNESIUM HYDROXIDE SUSP 30 ML UDCUP PEG SCH (08:49)
[2019-11-11] MEDS: OXcarbazepine 300 MG TABLET PO SCH (21:43)
[2019-11-12] MEDS: PIPERACILLIN/TAZOBACTAM 3,375 MG in SODIUM CHLORIDE 0.9% 100 ML IV SCH (01:17)
[2019-11-12] MEDS: ALBUTEROL/IPRATROPIUM 3 ML NEB RESP TX SCH ×4 (01:32→19:21)
[2019-11-12] MEDS: SODIUM CHLORIDE 0.9% 1,000 ML IV SCH ×2 (03:13→17:26)
[2019-11-12] MEDS: OXcarbazepine 300 MG TABLET PEG SCH (09:16)
[2019-11-12] MEDS: OMEPRAZOLE ODT 20 MG TABLET PEG SCH (09:16)
[2019-11-12] MEDS: POLYETHYLENE GLYCOL POWDER 17 GM PACK PEG SCH (09:16)
[2019-11-12] MEDS: POTASSIUM PHOS/SOD PHOS POWDER 250 MG PACK PEG SCH ×3 (09:16→22:08)
[2019-11-12] MEDS: BISACODYL 10 MG SUPP RECTAL SCH (09:17)
[2019-11-12] MEDS: HYDROCORTISONE 10 MG TABLET PER TUBE SCH ×2 (09:17→22:07)
[2019-11-12] MEDS: MAGNESIUM OXIDE 400 MG TABLET PEG SCH ×2 (09:17→22:08)
[2019-11-12] MEDS: MAGNESIUM HYDROXIDE SUSP 30 ML UDCUP PEG SCH (09:17)
[2019-11-12] MEDS: LACTOBACILLUS RHAMNOSUS GG CAPSULE PEG SCH ×2 (09:17→22:08)
[2019-11-12] MEDS: BENZTROPINE 1 MG TABLET PER TUBE SCH ×2 (09:17→22:08)
[2019-11-12] MEDS: IRON (CARBONYL)/VIT C/B12/FA TABLET PEG SCH ×4 (09:17→22:08)
[2019-11-12] MEDS: levETIRAcetam LIQUID 100 MG/ML 30 ML/BOTTLE PEG SCH ×2 (09:18→22:09)
[2019-11-12] MEDS: FAMOTIDINE 8 MG/ML 50 ML/BOTTLE PEG SCH ×2 (09:18→22:09)
[2019-11-12] MEDS: OXcarbazepine 300 MG TABLET PO SCH (22:08)
[2019-11-13] MEDS: ALBUTEROL/IPRATROPIUM 3 ML NEB RESP TX SCH ×3 (00:43→13:37)
[2019-11-13] MEDS: SODIUM CHLORIDE 0.9% 1,000 ML IV SCH (04:49)
[2019-11-13] MEDS: MAGNESIUM HYDROXIDE SUSP 30 ML UDCUP PEG SCH (10:25)
[2019-11-13] MEDS: IRON (CARBONYL)/VIT C/B12/FA TABLET PEG SCH ×2 (10:25→14:11)
[2019-11-13] MEDS: POLYETHYLENE GLYCOL POWDER 17 GM PACK PEG SCH (10:25)
[2019-11-13] MEDS: FAMOTIDINE 8 MG/ML 50 ML/BOTTLE PEG SCH (10:25)
[2019-11-13] MEDS: levETIRAcetam LIQUID 100 MG/ML 30 ML/BOTTLE PEG SCH (10:25)
[2019-11-13] MEDS: OXcarbazepine 300 MG TABLET PEG SCH (10:26)
[2019-11-13] MEDS: BENZTROPINE 1 MG TABLET PER TUBE SCH (10:26)
[2019-11-13] MEDS: POTASSIUM PHOS/SOD PHOS POWDER 250 MG PACK PEG SCH (10:26)
[2019-11-13] MEDS: LACTOBACILLUS RHAMNOSUS GG CAPSULE PEG SCH (10:26)
[2019-11-13] MEDS: OMEPRAZOLE ODT 20 MG TABLET PEG SCH (10:26)
[2019-11-13] MEDS: MAGNESIUM OXIDE 400 MG TABLET PEG SCH (10:26)
[2019-11-13] MEDS: HYDROCORTISONE 10 MG TABLET PER TUBE SCH (10:27)
[2019-11-13 12:03] VITALS: BP 130/63
== END 2019-11-13 15:03 | disposition home or self-care (01) | DRG 853 ==
LOC: EDUNIT# → EDBD → N.ED 04:36 → SUATTDRO 07:43 → N.EDINP 07:43 → N.5E 08:40 → N.ICU 19:04 → N.3E 11-08 18:36
PROVIDERS: ADMIT Internal Medicine; ATTEND Internal Medicine

== ENCOUNTER 2020-01-22 17:56 | Inpatient (IN) ==
[2020-01-22] MEDS ORDERED: METOCLOPRAMIDE 10 MG/2 ML VIAL IV STA (18:26)
[2020-01-22] MEDS ORDERED: SODIUM CHLORIDE 0.9% 1,000 ML IV STA (18:26)
[2020-01-22] MEDS ORDERED: ONDANSETRON 4 MG/2 ML VIAL IV STA (18:26)
[2020-01-22] MEDS ORDERED: PANTOPRAZOLE 40 MG VIAL IV STA (18:26)
[2020-01-22 19:47] LABS: Basophils % 0.1 % (0.0-0.8); Eosinophils % 0.1 % (0.00-10.9); Hematocrit 40.9 VOL% (42.0-52.0); Hemoglobin 14.2 GM/DL (14.0-18.0); Immature Granulocytes % 0.4 %; Immature Granulocytes Absolute 0.06 #; Lymphocytes # 0.7 10*3/uL (1.4-4.0); Lymphocytes % 4.4 % (21.2-54.2); Mean Corpuscular HGB Conc 34.7 GM/DL (32-36); Mean Corpuscular Volume 84.9 FL (87-102); Mean Platelet Volume 10.2 FL (9.6-12.0); Monocytes % 5.4 % (1.7-12.7); Neutrophils % 89.6 % (38.7-73.9); Platelet Count 267 T/CUMM (130-400); Red Blood Count 4.82 MC/CUMM (3.8-5.5); Red Cell Distribution Width 15.3 % (9.3-17.3); White Blood Count 15.4 T/CUMM (4-12)
[2020-01-22 20:06] LABS: Alanine Aminotransferase 21 U/L (16-61); Alkaline Phosphatase 77 U/L (45-117); Amylase 116 U/L (25-115); Aspartate Amino Transferase 21 U/L (0-37); Blood Urea Nitrogen 27 MG/DL (7-18); Calcium 9.5 MG/DL (8.5-10.1); Estimated Glom Filtration Rate 72 ML/MIN; Glucose 88 MG/DL (74-106); Osmolality,Calculated 258.2 MOS/KG (273-304); Total Protein 8.7 G/DL (6.4-8.3); Troponin I < 0.015 NG/ML (0.00-0.045)
[2020-01-22 20:18] LABS: Lymphocytes 1 % (20-55); Platelet Estimate Adequate; Segmented Neutrophils 92 % (50-85); Total Cells Counted 100
[2020-01-22] MEDS ORDERED: LEVOFLOXACIN INJ 750 MG in PREMIX 1 EACH IV STA (21:16)
[2020-01-22] MEDS ORDERED: ALBUTEROL/IPRATROPIUM 3 ML NEB RESP TX STA (21:16)
[2020-01-22 21:39] LABS: Amorphous Crystals,Urine Moderate /HPF (Few); Apearance,Urine CLEAR (Clear); Bilirubin,Urine Negative (Negative); Blood, Urine Negative (Negative); Glucose,Urine (UA) Negative (Negative); Hyaline Casts,Urine 1 /LPF (0-3); Ketones,Urine Negative (Negative); Mucus,Urine Occasional /LPF (Occasional); Nitrite,Urine Negative (Negative); Protein,Urine Negative; RBC,Urine 1 /HPF (0-4); Urine Color Yellow (Yellow); Urine Specific Gravity 1.015 (1.001-1.035); WBC,Urine <1 /HPF (0-6)
[2020-01-22] MEDS ORDERED: MORPHINE 4 MG/1 ML VIAL IV PRN (23:40)
[2020-01-22] MEDS ORDERED: ACETAMINOPHEN 325 MG TABLET PO PRN (23:40)
[2020-01-22] MEDS ORDERED: PROMETHAZINE 25 MG/1 ML VIAL IM PRN (23:40)
[2020-01-22] MEDS ORDERED: DEXTROSE 50% 25 GM/50 ML VIAL IV PRN (23:40)
[2020-01-22] MEDS ORDERED: ONDANSETRON 4 MG/2 ML VIAL IV PRN (23:40)
[2020-01-22] MEDS ORDERED: diphenhydrAMINE CAP 25 MG CAPSULE PO PRN (23:40)
[2020-01-22] MEDS ORDERED: GLUCAGON 1 MG VIAL IM PRN (23:40)
[2020-01-22] MEDS ORDERED: NICOTINE 21 MG/24 HR PATCH TRANSDERM PRN (23:40)
[2020-01-22] MEDS ORDERED: guaiFENesin/DM ER 600-30 MG TABLET PO PRN (23:40)
[2020-01-22] MEDS ORDERED: DOCUSATE SODIUM 100 MG CAPSULE PO PRN (23:40)
[2020-01-23] MEDS: LEVOFLOXACIN INJ 750 MG in PREMIX 1 EACH IV SCH ×2 (03:46→04:42)
[2020-01-23] MEDS: SODIUM CHLOR 0.9% KCL 20 MEQ 20 MEQ/1,000 ML BAG IV SCH ×4 (04:42→18:57)
[2020-01-23 04:58] LABS: Basophils % 0.2 % (0.0-0.8); Eosinophils # 0.1 10*3/uL (0.0-0.87); Eosinophils % 0.3 % (0.00-10.9); Hemoglobin 11.7 GM/DL (14.0-18.0); Immature Granulocytes % 0.4 %; Immature Granulocytes Absolute 0.07 #; Lymphocytes # 1.1 10*3/uL (1.4-4.0); Lymphocytes % 6.7 % (21.2-54.2); Mean Corpuscular HGB Conc 33.4 GM/DL (32-36); Mean Corpuscular Volume 87.1 FL (87-102); Mean Platelet Volume 10.2 FL (9.6-12.0); Monocytes % 5.3 % (1.7-12.7); Neutrophils % 87.1 % (38.7-73.9); Platelet Count 208 T/CUMM (130-400); Red Blood Count 4.02 MC/CUMM (3.8-5.5); Red Cell Distribution Width 15.3 % (9.3-17.3)
[2020-01-23 05:11] LABS: Calcium 8.8 MG/DL (8.5-10.1); Osmolality,Calculated 259.9 MOS/KG (273-304)
[2020-01-23] MEDS ORDERED: MAGNESIUM SULF RIDER 4 GM in PREMIX 1 EACH IV PRN (05:17)
[2020-01-23] MEDS ORDERED: MAGNESIUM SULF RIDER 2 GM in PREMIX 1 EACH IV PRN (05:17)
[2020-01-23] MEDS: metroNIDAZOLE INJ 500 MG in PREMIX 1 EACH IV SCH ×3 (06:21→20:16)
[2020-01-23] MEDS: ENOXAPARIN 40 MG/0.4 ML SYRINGE SUBCUT SCH (09:22)
[2020-01-23] MEDS: LORazepam 2 MG/1 ML VIAL IV PRN ×3 (11:37→20:10)
[2020-01-23] MEDS ORDERED: DEXTROSE 10% 250 ML BAG IV ONE (15:40)
[2020-01-23] MEDS: hydrALAZINE 20 MG/1 ML VIAL IV PRN (17:43)
[2020-01-24] MEDS: SODIUM CHLOR 0.9% KCL 20 MEQ 20 MEQ/1,000 ML BAG IV SCH ×4 (00:42→21:30)
[2020-01-24] MEDS: LEVOFLOXACIN INJ 750 MG in PREMIX 1 EACH IV SCH (03:20)
[2020-01-24] MEDS: metroNIDAZOLE INJ 500 MG in PREMIX 1 EACH IV SCH ×3 (05:25→21:30)
[2020-01-24] MEDS ORDERED: DEXTROSE 10% 250 ML IV ONE (07:42)
[2020-01-24] MEDS ORDERED: DEXTROSE 10% 25 GM/250 ML BAG IV PRN (07:48)
[2020-01-24] MEDS ORDERED: IRON CARBONYL VITAMIN C PEG SCH (13:00)
[2020-01-24] MEDS: BENZTROPINE 1 MG TABLET PEG SCH ×2 (15:02→21:30)
[2020-01-24] MEDS: BISACODYL 10 MG SUPP RECTAL SCH (15:02)
[2020-01-24] MEDS: levETIRAcetam LIQUID 100 MG/ML 30 ML/BOTTLE PEG SCH ×2 (15:02→21:30)
[2020-01-24] MEDS: HYDROCORTISONE 10 MG TABLET PEG SCH ×2 (15:02→21:30)
[2020-01-24] MEDS: MAGNESIUM HYDROXIDE SUSP 30 ML UDCUP PEG SCH (15:02)
[2020-01-24] MEDS: SODIUM CHLORIDE 1 GM TABLET PEG SCH ×2 (15:02→21:30)
[2020-01-24] MEDS: POLYETHYLENE GLYCOL POWDER 17 GM PACK PEG SCH (15:02)
[2020-01-24] MEDS: ENOXAPARIN 40 MG/0.4 ML SYRINGE SUBCUT SCH (15:02)
[2020-01-24] MEDS: OXcarbazepine 300 MG TABLET PEG SCH (15:03)
[2020-01-24] MEDS: POTASSIUM PHOS/SOD PHOS POWDER 250 MG PACK PEG SCH ×2 (15:03→21:30)
[2020-01-24 16:29] LABS: Albumin 3.2 G/DL (3.4-5.0); Bilirubin,Total 0.6 MG/DL (0.2-1.0); Calcium 9.3 MG/DL (8.5-10.1); Osmolality,Calculated 259.7 MOS/KG (273-304); Total Protein 7.5 G/DL (6.4-8.3)
[2020-01-24] MEDS: MAGNESIUM OXIDE 400 MG TABLET PEG SCH (21:30)
[2020-01-24] MEDS: LACTOBACILLUS ACIDOPHILUS/BULGARICUS CAPLET PEG SCH (21:30)
[2020-01-24] MEDS: OXcarbazepine 300 MG TABLET PO SCH (21:30)
[2020-01-25] MEDS: metroNIDAZOLE INJ 500 MG in PREMIX 1 EACH IV SCH ×3 (04:20→21:40)
[2020-01-25 05:20] LABS: Basophils % 0.3 % (0.0-0.8); Eosinophils # 0.1 10*3/uL (0.0-0.87); Hematocrit 35.3 VOL% (42.0-52.0); Hemoglobin 11.7 GM/DL (14.0-18.0); Immature Granulocytes % 0.3 %; Immature Granulocytes Absolute 0.02 #; Lymphocytes # 0.7 10*3/uL (1.4-4.0); Lymphocytes % 11.4 % (21.2-54.2); Mean Corpuscular HGB Conc 33.1 GM/DL (32-36); Mean Corpuscular Volume 87.2 FL (87-102); Mean Platelet Volume 10.4 FL (9.6-12.0); Monocytes % 9.1 % (1.7-12.7); Neutrophils % 77.9 % (38.7-73.9); Platelet Count 211 T/CUMM (130-400); Red Blood Count 4.05 MC/CUMM (3.8-5.5); Red Cell Distribution Width 15.4 % (9.3-17.3); White Blood Count 6.2 T/CUMM (4-12)
[2020-01-25 05:39] LABS: Albumin 3.3 G/DL (3.4-5.0); Bilirubin,Total 0.7 MG/DL (0.2-1.0); Calcium 8.9 MG/DL (8.5-10.1); Osmolality,Calculated 265.2 MOS/KG (273-304); Total Protein 7.7 G/DL (6.4-8.3)
[2020-01-25] MEDS: LACTOBACILLUS ACIDOPHILUS/BULGARICUS CAPLET PEG SCH ×2 (09:00→21:35)
[2020-01-25] MEDS: OXcarbazepine 300 MG TABLET PEG SCH (09:00)
[2020-01-25] MEDS: BENZTROPINE 1 MG TABLET PEG SCH ×2 (09:00→21:35)
[2020-01-25] MEDS: ENOXAPARIN 40 MG/0.4 ML SYRINGE SUBCUT SCH (09:01)
[2020-01-25] MEDS: MAGNESIUM HYDROXIDE SUSP 30 ML UDCUP PEG SCH (09:01)
[2020-01-25] MEDS: POTASSIUM PHOS/SOD PHOS POWDER 250 MG PACK PEG SCH ×3 (09:01→21:35)
[2020-01-25] MEDS: LEVOFLOXACIN INJ 750 MG in PREMIX 1 EACH IV SCH (09:01)
[2020-01-25] MEDS: MAGNESIUM OXIDE 400 MG TABLET PEG SCH ×2 (09:01→21:35)
[2020-01-25] MEDS: SODIUM CHLORIDE 1 GM TABLET PEG SCH ×2 (09:01→21:35)
[2020-01-25] MEDS: HYDROCORTISONE 10 MG TABLET PEG SCH ×2 (09:01→21:35)
[2020-01-25] MEDS: POLYETHYLENE GLYCOL POWDER 17 GM PACK PEG SCH (09:01)
[2020-01-25] MEDS: OMEPRAZOLE ODT 20 MG TABLET PEG SCH (09:01)
[2020-01-25] MEDS: levETIRAcetam LIQUID 100 MG/ML 30 ML/BOTTLE PEG SCH ×2 (09:01→21:35)
[2020-01-25] MEDS: SODIUM CHLOR 0.9% KCL 20 MEQ 20 MEQ/1,000 ML BAG IV SCH (15:44)
[2020-01-25] MEDS ORDERED: DEXTROSE 5% NACL 0.45% 1,000 ML IV SCH (17:00)
[2020-01-25] MEDS: OXcarbazepine 300 MG TABLET PO SCH (21:35)
[2020-01-26] MEDS: SODIUM CHLOR 0.9% KCL 20 MEQ 20 MEQ/1,000 ML BAG IV SCH ×2 (04:30)
[2020-01-26] MEDS: metroNIDAZOLE INJ 500 MG in PREMIX 1 EACH IV SCH (05:00)
[2020-01-26 05:35] LABS: Basophils % 0.2 % (0.0-0.8); Eosinophils # 0.1 10*3/uL (0.0-0.87); Eosinophils % 1.2 % (0.00-10.9); Hematocrit 33.5 VOL% (42.0-52.0); Immature Granulocytes % 0.2 %; Immature Granulocytes Absolute 0.01 #; Lymphocytes # 0.8 10*3/uL (1.4-4.0); Lymphocytes % 19.8 % (21.2-54.2); Mean Corpuscular HGB Conc 32.8 GM/DL (32-36); Mean Corpuscular Volume 89.1 FL (87-102); Monocytes % 8.2 % (1.7-12.7); Neutrophils % 70.4 % (38.7-73.9); Platelet Count 213 T/CUMM (130-400); Red Blood Count 3.76 MC/CUMM (3.8-5.5); Red Cell Distribution Width 15.5 % (9.3-17.3); White Blood Count 4.2 T/CUMM (4-12)
[2020-01-26 06:02] LABS: Calcium 8.6 MG/DL (8.5-10.1)
[2020-01-26] MEDS ORDERED: MAGNESIUM SULF RIDER 4 GM in PREMIX 1 EACH IV ONE (08:00)
[2020-01-26] MEDS: MAGNESIUM HYDROXIDE SUSP 30 ML UDCUP PEG SCH (08:29)
[2020-01-26] MEDS: OMEPRAZOLE ODT 20 MG TABLET PEG SCH (08:30)
[2020-01-26] MEDS: levETIRAcetam LIQUID 100 MG/ML 30 ML/BOTTLE PEG SCH ×2 (08:30→20:00)
[2020-01-26] MEDS: ENOXAPARIN 40 MG/0.4 ML SYRINGE SUBCUT SCH (08:30)
[2020-01-26] MEDS: HYDROCORTISONE 10 MG TABLET PEG SCH ×2 (08:30→20:00)
[2020-01-26] MEDS: POLYETHYLENE GLYCOL POWDER 17 GM PACK PEG SCH (08:30)
[2020-01-26] MEDS: POTASSIUM PHOS/SOD PHOS POWDER 250 MG PACK PEG SCH ×3 (08:30→20:00)
[2020-01-26] MEDS: SODIUM CHLORIDE 1 GM TABLET PEG SCH ×2 (08:31→20:00)
[2020-01-26] MEDS: MAGNESIUM OXIDE 400 MG TABLET PEG SCH ×2 (08:31→20:00)
[2020-01-26] MEDS: LACTOBACILLUS ACIDOPHILUS/BULGARICUS CAPLET PEG SCH ×2 (08:31→20:00)
[2020-01-26] MEDS: BENZTROPINE 1 MG TABLET PEG SCH ×2 (08:31→20:00)
[2020-01-26] MEDS: OXcarbazepine 300 MG TABLET PEG SCH (08:32)
[2020-01-26] MEDS: LEVOFLOXACIN INJ 750 MG in PREMIX 1 EACH IV SCH (08:32)
[2020-01-26] MEDS: METOCLOPRAMIDE 10 MG/10 ML UDCUP PO SCH ×2 (12:11→16:37)
[2020-01-26] MEDS: OXcarbazepine 300 MG TABLET PO SCH (20:00)
[2020-01-27] MEDS: SODIUM CHLOR 0.9% KCL 20 MEQ 20 MEQ/1,000 ML BAG IV SCH ×2 (00:30→12:00)
[2020-01-27 04:59] LABS: Basophils % 0.2 % (0.0-0.8); Eosinophils % 0.9 % (0.00-10.9); Hematocrit 32.4 VOL% (42.0-52.0); Hemoglobin 10.7 GM/DL (14.0-18.0); Immature Granulocytes % 0.2 %; Immature Granulocytes Absolute 0.01 #; Lymphocytes % 21.7 % (21.2-54.2); Mean Corpuscular Volume 87.8 FL (87-102); Mean Platelet Volume 9.6 FL (9.6-12.0); Monocytes % 11.1 % (1.7-12.7); Neutrophils % 65.9 % (38.7-73.9); Platelet Count 223 T/CUMM (130-400); Red Blood Count 3.69 MC/CUMM (3.8-5.5); Red Cell Distribution Width 15.4 % (9.3-17.3); White Blood Count 4.4 T/CUMM (4-12)
[2020-01-27 05:19] LABS: Osmolality,Calculated 270.8 MOS/KG (273-304); Prealbumin 11.6 MG/DL (20-40)
[2020-01-27] MEDS: METOCLOPRAMIDE 10 MG/10 ML UDCUP PO SCH ×3 (06:20→15:45)
[2020-01-27] MEDS: BISACODYL 10 MG SUPP RECTAL SCH (08:30)
[2020-01-27] MEDS: OXcarbazepine 300 MG TABLET PEG SCH (08:36)
[2020-01-27] MEDS: HYDROCORTISONE 10 MG TABLET PEG SCH ×2 (08:37→21:02)
[2020-01-27] MEDS: MAGNESIUM HYDROXIDE SUSP 30 ML UDCUP PEG SCH (08:37)
[2020-01-27] MEDS: POLYETHYLENE GLYCOL POWDER 17 GM PACK PEG SCH (08:37)
[2020-01-27] MEDS: BENZTROPINE 1 MG TABLET PEG SCH ×2 (08:37→21:04)
[2020-01-27] MEDS: POTASSIUM PHOS/SOD PHOS POWDER 250 MG PACK PEG SCH ×3 (08:38→21:02)
[2020-01-27] MEDS: LACTOBACILLUS ACIDOPHILUS/BULGARICUS CAPLET PEG SCH ×2 (08:38→21:03)
[2020-01-27] MEDS: SODIUM CHLORIDE 1 GM TABLET PEG SCH ×2 (08:38→21:02)
[2020-01-27] MEDS: MAGNESIUM OXIDE 400 MG TABLET PEG SCH ×2 (08:39→21:02)
[2020-01-27] MEDS: ENOXAPARIN 40 MG/0.4 ML SYRINGE SUBCUT SCH (08:39)
[2020-01-27] MEDS: levETIRAcetam LIQUID 100 MG/ML 30 ML/BOTTLE PEG SCH ×2 (08:39→21:02)
[2020-01-27] MEDS: OMEPRAZOLE ODT 20 MG TABLET PEG SCH (09:49)
[2020-01-27] MEDS: OXcarbazepine 300 MG TABLET PO SCH (21:04)
[2020-01-28] MEDS: SODIUM CHLOR 0.9% KCL 20 MEQ 20 MEQ/1,000 ML BAG IV SCH (01:58)
[2020-01-28 06:03] LABS: Basophils % 0.2 % (0.0-0.8); Eosinophils % 0.9 % (0.00-10.9); Hematocrit 34.7 VOL% (42.0-52.0); Hemoglobin 11.3 GM/DL (14.0-18.0); Immature Granulocytes % 0.2 %; Immature Granulocytes Absolute 0.01 #; Lymphocytes % 20.9 % (21.2-54.2); Mean Corpuscular HGB Conc 32.6 GM/DL (32-36); Mean Corpuscular Volume 88.5 FL (87-102); Mean Platelet Volume 9.8 FL (9.6-12.0); Monocytes % 10.4 % (1.7-12.7); Neutrophils % 67.4 % (38.7-73.9); Platelet Count 234 T/CUMM (130-400); Red Blood Count 3.92 MC/CUMM (3.8-5.5); Red Cell Distribution Width 15.2 % (9.3-17.3); White Blood Count 4.5 T/CUMM (4-12)
[2020-01-28 06:18] LABS: Calcium 8.8 MG/DL (8.5-10.1); Osmolality,Calculated 268.1 MOS/KG (273-304)
[2020-01-28] MEDS: METOCLOPRAMIDE 10 MG/10 ML UDCUP PO SCH ×2 (08:50→10:58)
[2020-01-28] MEDS: OXcarbazepine 300 MG TABLET PEG SCH (08:51)
[2020-01-28] MEDS: LACTOBACILLUS ACIDOPHILUS/BULGARICUS CAPLET PEG SCH (10:19)
[2020-01-28] MEDS: levETIRAcetam LIQUID 100 MG/ML 30 ML/BOTTLE PEG SCH (10:20)
[2020-01-28] MEDS: BENZTROPINE 1 MG TABLET PEG SCH (10:20)
[2020-01-28] MEDS: HYDROCORTISONE 10 MG TABLET PEG SCH (10:20)
[2020-01-28] MEDS: MAGNESIUM OXIDE 400 MG TABLET PEG SCH (10:20)
[2020-01-28] MEDS: POLYETHYLENE GLYCOL POWDER 17 GM PACK PEG SCH (10:21)
[2020-01-28] MEDS: MAGNESIUM HYDROXIDE SUSP 30 ML UDCUP PEG SCH (10:21)
[2020-01-28] MEDS: SODIUM CHLORIDE 1 GM TABLET PEG SCH (10:21)
[2020-01-28] MEDS: OMEPRAZOLE ODT 20 MG TABLET PEG SCH (10:21)
[2020-01-28] MEDS: POTASSIUM PHOS/SOD PHOS POWDER 250 MG PACK PEG SCH (10:21)
[2020-01-28] MEDS: ENOXAPARIN 40 MG/0.4 ML SYRINGE SUBCUT SCH (10:58)
[2020-01-28] MEDS: hydrALAZINE 20 MG/1 ML VIAL IV PRN (11:45)
[2020-01-28 11:53] VITALS: BP 196/99
== END 2020-01-28 14:52 | disposition home or self-care (01) | DRG 388 ==
LOC: EDUNIT# → EDBD → N.ED 17:56 → N.EDINP 23:40 → SUATTDRO 23:40 → N.ICU 01-23 00:05 → N.2W 01-24 02:10
PROVIDERS: ADMIT Internal Medicine; ATTEND Family Medicine

== ENCOUNTER 2020-03-21 12:34 | Inpatient (IN) ==
[2020-03-21] MEDS ORDERED: ONDANSETRON ODT 4 MG TABLET PO STA (13:00)
[2020-03-21] MEDS ORDERED: SODIUM CHLORIDE 0.9% 1,000 ML IV STA (13:00)
[2020-03-21] MEDS ORDERED: PIPERACILLIN/TAZOBACTAM 3,375 MG in SODIUM CHLORIDE 0.9% 100 ML IV STA (13:00)
[2020-03-21] MEDS ORDERED: VANCOMYCIN INJ 1,000 MG in SODIUM CHLORIDE 0.9% 250 ML IV STA (13:00)
[2020-03-21 13:22] LABS: Basophils % 0.1 % (0.0-0.8); Eosinophils % 0.1 % (0.00-10.9); Hematocrit 45.1 VOL% (42.0-52.0); Hemoglobin 14.5 GM/DL (14.0-18.0); Immature Granulocytes % 0.7 %; Immature Granulocytes Absolute 0.12 #; Lymphocytes # 1.8 10*3/uL (1.4-4.0); Lymphocytes % 10.5 % (21.2-54.2); Mean Corpuscular HGB Conc 32.2 GM/DL (32-36); Mean Corpuscular Volume 88.8 FL (87-102); Mean Platelet Volume 9.7 FL (9.6-12.0); Monocytes % 4.9 % (1.7-12.7); Neutrophils % 83.7 % (38.7-73.9); Platelet Count 298 T/CUMM (130-400); Red Blood Count 5.08 MC/CUMM (3.8-5.5); Red Cell Distribution Width 15.4 % (9.3-17.3); White Blood Count 16.7 T/CUMM (4-12)
[2020-03-21 13:58] LABS: ABG Base Excess -6.6 MMOL/L (-2.5-2.5); ABG Oxygen Saturation 95.5 % (95-100); ABG PO2 90.4 MM HG (80-95); ABG TCO2 17.1 MMOL/L (23-27); Allen Test Positive
[2020-03-21 14:04] LABS: Alanine Aminotransferase 21 U/L (16-61); Albumin 4.1 G/DL (3.4-5.0); Alkaline Phosphatase 96 U/L (45-117); Blood Urea Nitrogen 51 MG/DL (7-18); Calcium 10.8 MG/DL (8.5-10.1); Estimated Glom Filtration Rate 22 ML/MIN; Glucose 111 MG/DL (74-106); Osmolality,Calculated 267.4 MOS/KG (273-304); Total Protein 10.2 G/DL (6.4-8.3)
[2020-03-21 14:26] LABS: Aspartate Amino Transferase < 3 U/L (0-37)
[2020-03-21 14:29] LABS: Apearance,Urine CLEAR (Clear); Bacteria,Urine Occasional /HPF (Few); Bilirubin,Urine Negative (Negative); Blood, Urine Negative (Negative); Glucose,Urine (UA) Negative (Negative); Ketones,Urine Negative (Negative); Nitrite,Urine Negative (Negative); Protein,Urine Negative; RBC,Urine 1 /HPF (0-4); Squamous Epithelial Cell,Urine Occasional /HPF (0-10); Urine Color Yellow (Yellow); Urine Specific Gravity 1.014 (1.001-1.035); Urine Urobilinogen < 2.0 EU/DL (0.2-1.0); WBC,Urine 1 /HPF (0-6)
[2020-03-21] MEDS ORDERED: GLUCAGON 1 MG VIAL IM PRN (14:45)
[2020-03-21] MEDS ORDERED: DEXTROSE 10% 250 ML BAG IV PRN (14:45)
[2020-03-21] MEDS: SODIUM CHLORIDE 0.9% 1,000 ML IV SCH ×2 (14:57→22:30)
[2020-03-21] MEDS ORDERED: VANCOMYCIN 1,000 MG VIAL ONE (15:48)
[2020-03-21] MEDS ORDERED: ONDANSETRON 4 MG/2 ML VIAL ONE (15:49)
[2020-03-21] MEDS ORDERED: VANCOMYCIN INJ 1,000 MG in SODIUM CHLORIDE 0.9% 250 ML IV PRN (16:29)
[2020-03-21 17:26] LABS: INR 1.1; PT Patient Result 11.6 SECS (9.8-11.9); Partial Thromboplastin Time 31.9 SECS (23.9-33.8)
[2020-03-21] MEDS: ALBUTEROL/IPRATROPIUM 3 ML NEB RESP TX SCH (18:40)
[2020-03-21] MEDS ORDERED: ENOXAPARIN 30 MG/0.3 ML SYRINGE SUBCUT SCH (21:00)
[2020-03-21] MEDS ORDERED: OXcarbazepine 300 MG TABLET PEG SCH (21:00)
[2020-03-21] MEDS ORDERED: AMINO ACIDS PROTEIN HYDROLYS PEG SCH (21:00)
[2020-03-21] MEDS ORDERED: FAMOTIDINE 20 MG TABLET PEG SCH (21:00)
[2020-03-21] MEDS: PIPERACILLIN/TAZOBACTAM 3,375 MG in SODIUM CHLORIDE 0.9% 100 ML IV SCH (22:55)
[2020-03-22] MEDS: ALBUTEROL/IPRATROPIUM 3 ML NEB RESP TX SCH ×2 (00:05→07:18)
[2020-03-22 02:40] LABS: Calcium 9.3 MG/DL (8.5-10.1); Osmolality,Calculated 272.1 MOS/KG (273-304)
[2020-03-22 02:41] LABS: Basophils % 0.3 % (0.0-0.8); Hemoglobin 14.1 GM/DL (14.0-18.0); Immature Granulocytes % 0.4 %; Immature Granulocytes Absolute 0.03 #; Lymphocytes % 12.8 % (21.2-54.2); Mean Corpuscular HGB Conc 32.8 GM/DL (32-36); Mean Platelet Volume 10.1 FL (9.6-12.0); Monocytes % 9.1 % (1.7-12.7); Neutrophils % 77.4 % (38.7-73.9); Platelet Count 216 T/CUMM (130-400); Red Blood Count 4.83 MC/CUMM (3.8-5.5); Red Cell Distribution Width 15.4 % (9.3-17.3)
[2020-03-22 03:39] VITALS: BP 41/17
[2020-03-22 04:02] LABS: Band Neutrophils 14 % (0-10); Lymphocytes 18 % (20-55); Metamyelocytes 10 %; Myelocytes 5 %; Segmented Neutrophils 43 % (50-85); Total Cells Counted 100
[2020-03-22 04:03] LABS: Atypical Lymphocytes 1+; Platelet Estimate Normal
[2020-03-22] MEDS: PIPERACILLIN/TAZOBACTAM 3,375 MG in SODIUM CHLORIDE 0.9% 100 ML IV SCH (06:08)
[2020-03-22] MEDS ORDERED: OXcarbazepine 300 MG TABLET PEG SCH (08:00)
[2020-03-22] MEDS ORDERED: HYDROCORTISONE 10 MG TABLET PEG SCH (09:00)
[2020-03-22] MEDS ORDERED: OMEPRAZOLE ODT 20 MG TABLET PEG SCH (09:00)
[2020-03-22] MEDS ORDERED: POLYETHYLENE GLYCOL POWDER 17 GM PACK PEG SCH (09:00)
== END 2020-03-22 09:30 | disposition expired | DRG 871 ==
LOC: EDUNIT# → N.ED 12:34 → N.EDINP 14:45 → N.3E 16:19
PROVIDERS: ADMIT Internal Medicine Geriatric Medicine; ATTEND Internal Medicine Geriatric Medicine